=== PATIENT | male | born 1935 | race Caucasian/White ===

== ENCOUNTER 2017-04-03 09:42 | Emergency (ER) | payer OTHER, MEDICARE ==
[~2017-04-03] VITALS: Ht 167.6 cm; Wt 83.5 kg
[~2017-04-03 09:42] MED LIST: LIDOCAINE 2% 20 ML (XYLOCAINE) VIAL ONE
--- OUTSIDE RECORDS SUMMARY | 2017-04-03 09:50 | XMS REPORT | Summary of Care ---
Author Author Elier Nuñez, Dior Oliva Organization Unknown Address [address], [place] [id number] Phone Unavailable Care Team Providers Care Corrections Officer Name Role Phone Bk Garrido M.D. Unavailable Unavailable Tavares Lopes Unavailable Unavailable Elier Nuñez, Dior Oliva Unavailable Unavailable Jay Nuñez, Dior Crawford Unavailable Unavailable Miranda Nuñez, Hever Gallo Unavailable Unavailable Reagan Nuñez, Dereje Peguero Unavailable Unavailable Pj Thapa Unavailable Unavailable Unavailable Functional Status Name Dates Details Functional status health issues are not documented Status: Name Dates Details Cognitive status health issues are not documented Status: Problems Name Dates Details Hip pain, acute, left (719.45, M25.552) Status: Active [place]'s esophagus (530.85, K22.70) Status: Active Benign prostatic hypertrophy (600.00, N40.0) Status: Active Obesity (BMI 30.0-34.9) (278.00, E66.9) Status: Active Laryngopharyngeal reflux (478.79, K21.9) Status: Active Acute non-recurrent maxillary sinusitis (461.0, J01.00) Status: Active Actinic keratosis (702.0, L57.0) Status: Active 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, 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 SOB (shortness of breath) on exertion (786.05, R06.02) Status: Active Leg edema (782.3, R60.0) Status: Active Contusion of left lower extremity, initial encounter (924.5, S80.12XA) Status: Active Atrial arrhythmia (427.9, I49.8) Status: Active Symptomatic bradycardia (427.89, R00.1) Status: Active 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, Z95.0) Status: Active Lung disease, chronic obstructive (496, J44.9) Status: Active Leg cramps (729.82, R25.2) Status: Active UTI symptoms (788.99, R39.9) Status: Active Nasal bleeding (784.7, R04.0) Status: Active Allergic rhinitis (477.9, J30.9) Status: Active Atrial fibrillation (427.31, I48.91) Status: Active Asthma (493.90, J45.909) Status: Active Obstructive sleep apnea (327.23, G47.33) Status: Active Benign essential hypertension (401.1, I10) Status: Active Medications Name Dates Details Multiple Vitamins Oral Tablet Active Fish Oil 1000 MG Oral Capsule * Refills: 0 Active Fiber CAPS * Refills: 0 Active Pantoprazole Sodium 40 MG Oral Tablet Delayed Release TAKE 1 TABLET BY MOUTH 30 MINUTES BEFORE BREAKFAST EVERY DAY * Quantity: 30 Refills: 11 Ty Thompson M.D. Start 28-Apr-2010 Active ClonazePAM 0.5 MG Oral Tablet TAKE 1-3 TABLETS BY MOUTH 1 HOUR BEFORE BEDTIME FOR RESTLESSNESS NEEDED * Quantity: 60 Refills: 5 Ty Garrido M.D. Start 15-Feb-2015 Active Xarelto 20 MG Oral Tablet Take 1 tablet daily * Refills: 0 Sudhir Kirk M.D. * Start 15-Sep-2015 Active SUMAtriptan Succinate 100 MG Oral Tablet TAKE 1 TABLET FOR MIGRAINE RELIEF. OCTOBER REPEAT 2 HOURS LATER. MAXIMUM 200MG/DAY. * Refills: 0 Pj Thapa M.D. Start 04-Nov-2015 Active Promethazine HCl - 25 MG Oral Tablet Take one tablet every 4 hours as needed for nausea and vomiting. * Refills: 0 Pj Thapa M.D. Start 04-Nov-2015 Active Acetaminophen 500 MG Oral Tablet * Refills: 0 Ty Garrido M.D. Start 15-Feb-2016 Active ZyrTEC Allergy 10 MG Oral Capsule Take one tablet daily * Refills: 0 Sabino Jean M.D. Start 27-Mar-2016 Active LevoFLOXacin 750 MG Oral Tablet TAKE 1 TABLET DAILY. * Quantity: 10 Refills: 0 Pj Thapa M.D. Start 29-May-2016 Active Losartan Potassium 25 MG Oral Tablet TAKE 1 TABLET DAILY. * Quantity: 30 Refills: 11 Pj Thapa M.D. Start 08-Feb-2016 Active Symbicort 160-4.5 MCG/ACT Inhalation Aerosol INHALE 2 PUFFS BY MOUTH TWICE DAILY * Quantity: 10.2 Refills: 3 Elier Nuñez Pj Rader * Start 18-May-2016 Active Tamsulosin HCl - 0.4 MG Oral Capsule TAKE 1 CAPSULE BY MOUTH AT BEDTIME * Quantity: 90 Refills: 3 Ty Lopes * Start Active Allergies and Adverse Reactions Name Dates Details Codeine Derivatives (Allergy) Status: Active Penicillins (Allergy) Status: Active Past Medical History Name Dates Details History of cholelithiasis (V12.79, Z87.19) Status: Resolved History of fracture of facial bone (V15.51, Z87.81) Status: Resolved History of herpes zoster (V12.09, Z86.19) Status: Resolved History of Left breast lump (611.72, N63) Status: Resolved History of Left ureteral stone (592.1, N20.1) Status: Resolved History of Olecranon bursitis (726.33, M70.20) Status: Resolved History of renal calculi (V13.01, Z87.442) Status: Resolved History of Renal colic on left side (788.0, N23) Status: Resolved History of small bowel obstruction (V12.79, Z87.19) Status: Resolved History of Ventral hernia (553.20, K43.9) Status: Resolved Procedures Procedure Dates Details History of Extracaps Cataract Extract With Prosthesis Insert Left Eye History of Extracaps Cataract Extract With Prosthesis Insert Right Eye History of Discission Of Secondary Membranous Cataract By Laser Completed: 15-Apr-2009 History of Discission Of Secondary Membranous Cataract By Laser Completed: 22-Apr-2009 History of Tonsillectomy History of Total Knee Arthroplasty Completed: History of Total Knee Arthroplasty Completed: 31-Jan-2010 History of Cystoscopy With Ureteral Catheterization Completed: 11-Aug-2011 History of Upr GI Endosc W/ Insert Guide Wire Fol By Dilat Esoph Over Completed: 25-Mar-2012 History of Colonoscopy For Forceps Biopsy Completed: 16-Apr-2012 History of Duodenoscopy With Biopsy Completed: 07-Apr-2013 History of Laparoscopic Cholecystectomy With Cholangiography Completed: December-2013 History of Appendectomy As Part Of Other Major Procedure History of Ventral Hernia Repair History of Ventral Hernia Repair With Implantation Of Mesh Completed: Apr-2014 History of Prostate Surgery History of Back Surgery History of Gastroscopy With Biopsy Completed: 25-Mar-2012 History of Cataract Surgery History of Tonsillectomy With Adenoidectomy History of Sinus Surgery History of Appendectomy History of Gallbladder Surgery History of Umbilical Hernia Repair History of Reported Hx Of Knee Replacement - Bilateral History of Surgery Vas Deferens Vasectomy History of Complete Colonoscopy Urinalysis, Reflex to Microscopic or Culture PRN [id number] Ordered: 11-Aug-2016 CT SINUSES Ordered: 11-Aug-2016 Immunization Name Dates Details Fluzone High-Dose SUSP Lot #: [id number] on: 09-Apr-2014 Prevnar 13 Intramuscular Suspension Lot #: [id number] on: 11-May-2016 Fluzone High-Dose 0.5 ML Intramuscular Suspension Prefilled Syringe Lot #: [id number] on: 11-May-2016 Family History Name Dates Details Family history of leukemia (V16.6, Z80.6) Status: Active Name Dates Details Family history of Pacemaker Placement Status: Active Family history of dementia (V17.2, Z81.8) Status: Active Family history of cardiac pacemaker (V17.49, Z84.89) Status: Active Family history of congestive heart failure (V17.49, Z82.49) Status: Active Name Dates Details Family history of cerebrovascular accident (CVA) (V17.1, Z82.3) Status: Active Family history of dementia (V17.2, Z81.8) Status: Active Family history of cardiac pacemaker (V17.49, Z84.89) Status: Active Family history of congestive heart failure (V17.49, Z82.49) Status: Active Name Dates Details Family history of malignant neoplasm of urinary bladder (V16.52, Z80.52) Status: Active Name Dates Details Family history of CABG (V17.49, Z84.89) Status: Active Family history of myocardial infarction (V17.3, Z82.49) Status: Active Family history of Aneurysm (442.9, I72.9) Status: Active Family history of congestive heart failure (V17.49, Z82.49) Status: Active Social History Name Dates Details - Status: Name Dates Details Never smoker Vital Signs Date Test Result Details 11-Aug-2016 09:51 BP Systolic 120 mm[Hg] Status: Comments: Location: ; Position: BP Diastolic 70 mm[Hg] Status: Comments: Location: ; Position: Heart Rate 84 /min Status: Comments: Location: ; Weight 186 lb Status: Physical Findings 93 Status: Comments: O2 Saturation Body Mass Index Calculated 30.02 kg/m2 Status: Body Surface Area Calculated 1.94 m2 Status: Results Date Description Value Details 09-Aug-2016 09:37 CBC w/ Auto Diff 7150 Comments: Fastin hours WBC 5.8 K/uL Range: 4.5-11.0 RBC 4.76 mil/uL Range: 4.20-5.40 HGB 16.2 g/dL Range: 14.0-18.0 HCT 47.7 % Range: 42.0-53.0 MCV 100.3 fL (Above high threshold) Range: 80.0-99.0 MCH 34.0 pg (Above high threshold) Range: 27.3-32.5 MCHC 33.9 % Range: 32.0-36.0 RDW 14.9 % (Above high threshold) Range: 11.6-14.8 PLATELETS 207 K/uL Range: 150-400 MPV 6.9 fL Range: 6.0-11.0 %NEUTRO 47.9 % Range: 37.0-80.0 %LYMPHS 36.7 % Range: 13.0-50.0 %MONO 7.6 % Range: 0.0-12.0 %EOS 3.9 % Range: 0.0-7.0 %BASO 0.9 % Range: 0.0-2.5 %JAZMINE 3.0 % Range: 0.0-5.0 NEUTRO 2.8 K/uL Range: 2.0-6.9 LYMPHS 2.1 K/uL Range: 0.6-3.4 MONOS 0.4 K/uL Range: 0.0-0.9 EOS 0.2 K/uL Range: 0.0-0.7 BASO 0.1 K/uL Range: 0.0-0.2 10:08 Comprehensive Metabolic Panel 1212 Comments: Fastin hours SODIUM 138 mmol/L Range: 133-144 POTASSIUM 4.1 mmol/L Range: 3.5-5.1 CHLORIDE 102 mmol/L Range: 98-110 CARBON DIOXIDE 29.8 mmol/L Range: 23.0-33.0 ANION GAP 6 mmol/L Range: 6-16 BUN 13 mg/dL Range: 7-18 CREATININE, SERUM 1.17 mg/dL Range: 0.70-1.30 BUN:CREATININE RATIO 11 EST GFR, >60 ml/min Range: >60 EST GFR, NON-AFR QATARI 60 ml/min (Below low threshold) Range: >60 Comments: EST GFR is reported in ml/min per 1.73 m2 of body surface area. ----- GLUCOSE 93 mg/dL Range: 70-100 ALK PHOSPHATASE 71 U/L Range: 46-116 TOTAL BILIRUBIN 1.60 mg/dL (Above high threshold) Range: 0.20-1.00 AST 26 U/L Range: 8-35 ALT 32 U/L Range: 16-63 ALBUMIN 3.7 g/dL Range: 3.4-5.0 TOTAL PROTEIN 7.2 g/dL Range: 6.4-8.2 A/G RATIO 1.1 units Range: 1.0-1.8 CALCIUM 8.7 mg/dL Range: 8.5-10.1 10:08 LIPID PROFILE 1184 Comments: Fastin hours CHOLESTEROL 161 mg/dL Range: <200 TRIGLYCERIDES 146 mg/dL Range: 30-200 HDL Cholesterol 44 mg/dL Range: >39 NON HDL CHOLESTEROL 117 CARDIAC RSK FACTOR 3.7 units (Below low threshold) Range: 4.4-5.0 LDL - CALCULATED 88 mg/dL Range: 0-130 10:15 THYROID STIM. HORMONE 3602 Comments: Fastin hours THYROID STIM. HORMONE 2.437 uIU/mL Range: 0.550-4.780 Comments: No established reference ranges for infants and children <2 years of age----- Plan of Care Name Dates Details Planned Observations Planned Goals not documented Planned Encounters Appointment; Provider: Pj Thapa M.D. On 09-Nov-2016 14:15 Appointment; Provider: Ty Lopes M.D.,FACS, On 04-Oct-2016 10:45 Appointment; Provider: Everton Cummins M.D. On 25-Sep-2016 10:15 Appointment; Provider: Ty Thompson M.D. On 12-Sep-2016 08:45 Appointment; Provider: David Sultana M.D. On 15-Aug-2016 15:15 Appointment; Provider: Schedule Radiology On 14-Aug-2016 13:30 Interventions Provided Labs/Procedures/Imaging* CT SINUSES; To be Done: 11 Aug 2016 * Urinalysis, Reflex to Microscopic or Culture PRN [id number]; To be Done: 11 Aug 2016 Instructions Name Dates Details Instructions not documented Encounters Appointment; Pj Thapa M.D. Encounter Diagnosis: Problem not documented On 29-May-2016 10:15 Appointment; Pj Thapa M.D. Encounter Diagnosis: Problem not documented On 11-May-2016 09:45 Appointment; Everton Cummins M.D. Encounter Diagnosis: Problem not documented On 27-Mar-2016 11:00 Appointment; Pj Thapa M.D. Encounter Diagnosis: Problem not documented On 16-Mar-2016 14:15 Appointment; Ty Garrido M.D. Encounter Diagnosis: Problem not documented On 15-Feb-2016 15:15 Appointment; Pj Thapa M.D. Encounter Diagnosis: Problem not documented On 08-Feb-2016 11:45 Appointment; David Sultana M.D. Encounter Diagnosis: Problem not documented On 08-Feb-2016 06:15 Appointment; David Sultana M.D. Encounter Diagnosis: Problem not documented On 07-Feb-2016 13:00 Appointment; David Sultana M.D. Encounter Diagnosis: Problem not documented On 06:30 Appointment; David Sultana M.D. Encounter Diagnosis: Problem not documented On 08:45 Appointment; Pj Thapa M.D. Encounter Diagnosis: Problem not documented On 18-Nov-2015 15:00 Appointment; Pj Thapa M.D. Encounter Diagnosis: Problem not documented On 04-Nov-2015 14:30 Appointment; Ty Lopes M.D.,[facility], Encounter Diagnosis: Problem not documented On 04-Oct-2015 10:15 Appointment; Onur Whyte D.O. Encounter Diagnosis: Problem not documented On 29-Sep-2015 17:05 Appointment; Everton Cummins M.D. Encounter Diagnosis: Problem not documented On 20-Sep-2015 12:00 Appointment; Sudhir Kirk M.D. Encounter Diagnosis: Problem not documented On 15-Sep-2015 10:30 Appointment; Sudhir Kirk M.D. Encounter Diagnosis: Problem not documented On 08-Sep-2015 13:45 Appointment; David Sultana M.D. Encounter Diagnosis: Problem not documented On 31-May-2015 05:45 Appointment; David Sultana M.D. Encounter Diagnosis: Problem not documented On 26-May-2015 10:15 Appointment; Sudhir Kirk M.D. Encounter Diagnosis: Problem not documented On 26-Mar-2015 09:00 Appointment; Ty Garrido M.D. Encounter Diagnosis: Problem not documented On 15-Feb-2015 11:45 Appointment; Dinorah Merritt P.A. Encounter Diagnosis: Problem not documented On 08:15 Appointment; Ty Thompson M.D. Encounter Diagnosis: Problem not documented On 15:00 Appointment; Sudhir Kirk M.D. Encounter Diagnosis: Problem not documented On 10:00 Appointment; Sudhir Kirk M.D. Encounter Diagnosis: Problem not documented On 15:45 Appointment; David Sultana M.D. Encounter Diagnosis: Problem not documented On 24-Nov-2014 10:00 Appointment; David Sultana M.D. Encounter Diagnosis: Problem not documented On 26-Oct-2014 16:30 Appointment; David Sultana M.D. Encounter Diagnosis: Problem not documented On 12-Oct-2014 09:30 Appointment; David Sultana M.D. Encounter Diagnosis: Problem not documented On 05-Oct-2014 10:00 Appointment; Ty Lopes M.D.,[facility], Encounter Diagnosis: Problem not documented On 28-Sep-2014 10:45 Appointment; David Sultana M.D. Encounter Diagnosis: Problem not documented On 28-Sep-2014 10:15 Appointment; David Sultana M.D. Encounter Diagnosis: Problem not documented On 25-Sep-2014 09:30 Appointment; David Sultana M.D. Encounter Diagnosis: Problem not documented On 23-Sep-2014 13:30 Appointment; David Sultana M.D. Encounter Diagnosis: Problem not documented On 31-Aug-2014 13:00 Appointment; David Sultana M.D. Encounter Diagnosis: Problem not documented On 24-Aug-2014 10:15
--- OUTSIDE RECORDS SUMMARY | 2017-04-03 09:50 | XMS REPORT | Summary of Care ---
Author Author Irasema Parker APRN Organization Unknown Address [address] [facility] [place], [place] [id number] Phone Unavailable Care Team Providers Care Typesetting Machine Tender Name Role Phone Bk Garrido M.D. Unavailable Unavailable Elire Nuñez, Dior Oliva Unavailable Unavailable Tre Bull M.D. Unavailable Unavailable Irasema Parker APRN Unavailable Unavailable Jay Nuñez, Dior Crawford Unavailable Unavailable Miranda Nuñez, Hever Gallo Unavailable Unavailable Pj Thapa Unavailable Unavailable Unavailable Unavailable Functional Status Name Dates Details Functional status health issues are not documented Status: Name Dates Details Cognitive status health issues are not documented Status: Problems Name Dates Details Hip pain, acute, left (719.45, M25.552) Status: Active Washington's esophagus (530.85, K22.70) Status: Active Benign prostatic hypertrophy (600.00, N40.0) Status: Active Acute non-recurrent maxillary sinusitis (461.0, J01.00) Status: Active 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, 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 SOB (shortness of breath) on exertion (786.05, R06.02) Status: Active Leg edema (782.3, R60.0) Status: Active Contusion of left lower extremity, initial encounter (924.5, S80.12XA) Status: Active Atrial arrhythmia (427.9, I49.8) Status: Active Symptomatic bradycardia (427.89, R00.1) Status: Active Lung disease, chronic obstructive (496, J44.9) Status: Active Leg cramps (729.82, R25.2) Status: Active UTI symptoms (788.99, R39.9) Status: Active Nasal bleeding (784.7, R04.0) Status: Active Allergic rhinitis (477.9, J30.9) Status: Active Asthma (493.90, J45.909) Status: Active Obstructive sleep apnea (327.23, G47.33) Status: Active Actinic keratosis (702.0, L57.0) Status: Active Seborrheic keratosis (702.19, L82.1) Status: Active Laryngopharyngeal reflux (478.79, K21.9) Status: Active Chronic laryngitis (476.0, J37.0) Status: Active Chronic ethmoidal sinusitis (473.2, J32.2) Status: Active BPH with obstruction/lower urinary tract symptoms (600.01, N40.1) Status: Active Chronic maxillary sinusitis (473.0, J32.0) Status: Active Chronic frontal sinusitis (473.1, J32.1) Status: Active Increased prostate specific antigen (PSA) velocity (790.93, R97.20) Status: Active Lower back pain (724.2, M54.5) Status: Active Difficulty breathing (786.09, R06.89) Status: Active Atrial fibrillation (427.31, I48.91) Status: Active Benign essential hypertension (401.1, I10) Status: Active Obesity (BMI 30.0-34.9) (278.00, E66.9) Status: Active 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, Z95.0) Status: Active Acute right flank pain (789.09, R10.9) Status: Active Right low back pain (724.2, M54.5) Status: Active Multilevel degenerative disc disease (722.6, M53.9) Status: Active Scoliosis (737.30, M41.9) Status: Active Medications Name Dates Details Multiple Vitamins Oral Tablet Active Fish Oil 1000 MG Oral Capsule * Refills: 0 Active Fiber CAPS * Refills: 0 Active Pantoprazole Sodium 40 MG Oral Tablet Delayed Release TAKE 1 TABLET BY MOUTH 30 MINUTES BEFORE BREAKFAST EVERY DAY * Quantity: 30 Refills: 11 Ty Thompson M.D. Start 28-Apr-2010 Active Tamsulosin HCl - 0.4 MG Oral Capsule TAKE 1 CAPSULE BY MOUTH AT BEDTIME * Quantity: 90 Refills: 3 Tre Bull M.D. Start Active ClonazePAM 0.5 MG Oral Tablet TAKE 1-3 TABLETS BY MOUTH 1 HOUR BEFORE BEDTIME FOR RESTLESSNESS NEEDED * Quantity: 60 Refills: 5 Ty Garrido M.D. Start 15-Feb-2015 Active Xarelto 20 MG Oral Tablet TAKE 1 TABLET BY MOUTH EVERY DAY - PLEASE START ON 09/15/15 * Quantity: 30 Refills: 0 Elier Nuñez, Pj Rader * Start 13-Sep-2016 Active SUMAtriptan Succinate 100 MG Oral Tablet TAKE 1 TABLET FOR MIGRAINE RELIEF. OCTOBER REPEAT 2 HOURS LATER. MAXIMUM 200MG/DAY. * Refills: 0 Elier Nuñez, Pj Rader * Start 04-Nov-2015 Active Promethazine HCl - 25 MG Oral Tablet Take one tablet every 4 hours as needed for nausea and vomiting. * Refills: 0 Elier Nuñez, Pj Rader * Start 04-Nov-2015 Active Symbicort 160-4.5 MCG/ACT Inhalation Aerosol INHALE 2 PUFFS BY MOUTH TWICE DAILY * Quantity: 10.2 Refills: 3 Elier Nuñez, Pj Rader * Start 18-May-2016 Active Losartan Potassium 25 MG Oral Tablet TAKE 1 TABLET DAILY. * Quantity: 30 Refills: 11 Pj Thapa M.D. * Start 08-Feb-2016 Active Acetaminophen 500 MG Oral Tablet 650 MG 2 TABS AT HS * Refills: 0 Ty Garrido M.D. * Start 15-Feb-2016 Active ZyrTEC Allergy 10 MG Oral Capsule Take one tablet daily * Refills: 0 Sabino Jean M.D. * Start 27-Mar-2016 Active Omeprazole 40 MG Oral Capsule Delayed Release TAKE 1 CAPSULE Bedtime * Quantity: 30 Refills: 11 Ty Thompson M.D. * Start 17-Aug-2016 Active Sulfamethoxazole-Trimethoprim 800-160 MG Oral Tablet 1 tablet bid x 30 days * Quantity: 60 Refills: 0 Tre Bull M.D. * Start 10-Oct-2016 Active Baclofen 10 MG Oral Tablet TAKE ONE TABLET BY MOUTH THREE TIMES A DAY NEEDED * Quantity: 30 Refills: 0 Irasema Parker APRN * Start 13-Oct-2016 Active Allergies and Adverse Reactions Name Dates [...] of Ventral hernia (553.20, K43.9) Status: Resolved Personal history of skin cancer (V10.83, Z85.828) Status: Resolved Procedures Procedure Dates Details History [...] Endosc W/ Insert Guide Wire Fol By Cem Hughesoph Over Completed: 25-Mar-2012 History of Colonoscopy For Forceps Biopsy Completed: 16-Apr-2012 History of Duodenoscopy With Biopsy Completed: 07-Apr-2013 History of Laparoscopic Cholecystectomy With Cholangiography Completed: December-2013 History of Appendectomy As Part Of Other Major Procedure History of Ventral Hernia Repair History of Ventral Hernia Repair With Implantation Of Mesh Completed: Apr-2014 History of Cataract Surgery History of Tonsillectomy With Adenoidectomy History of Sinus Surgery History of Appendectomy History of Gallbladder Surgery History of Umbilical Hernia Repair History of Reported Hx Of Knee Replacement - Bilateral History of Prostate Surgery History of Back Surgery History of Gastroscopy With Biopsy Completed: 25-Mar-2012 History of Surgery Vas Deferens Vasectomy History of Complete Colonoscopy ENT Precert Ordered: 17-Aug-2016 PSA ( PROSTATE SPECIFIC ANTIGEN) 3100 Ordered: 10-Oct-2016 Urinalysis, Reflex to Microscopic or Culture PRN [id number] Ordered: 12-Oct-2016 Immunization Name Dates Details Fluzone High-Dose SUSP Lot #: [id number] on: 09-Apr-2014 Prevnar 13 Intramuscular Suspension Lot #: [id number] on: 11-May-2016 Fluzone High-Dose 0.5 ML Intramuscular Suspension Prefilled Syringe Lot #: [id number] on: 11-May-2016 Family History Name Dates Details [...] Dates Details - Status: Name Dates Details Former smoker Vital Signs Date Test Result Details 13-Oct-2016 13:59 BP Systolic 110 mm[Hg] Status: Comments: Location: ; Position: BP Diastolic 72 mm[Hg] Status: Comments: Location: ; Position: Heart Rate 86 /min Status: Comments: Location: ; Weight 186.4 lb Status: Physical Findings 95 Status: Comments: O2 Saturation Body Mass Index Calculated 30.09 kg/m2 Status: Body Surface Area Calculated 1.94 m2 Status: 12-Oct-2016 11:16 BP Systolic 124 mm[Hg] Status: Comments: Location: LUE; Position: Sitting BP Diastolic 76 mm[Hg] Status: Comments: Location: LUE; Position: Sitting Heart Rate 76 /min Status: Comments: Location: ; Height 66 in Status: Weight 185 lb Status: Body Mass Index Calculated 29.86 kg/m2 Status: Body Surface Area Calculated 1.93 m2 Status: 12-Oct-2016 08:55 BP Systolic 142 mm[Hg] Status: Comments: Location: ; Position: BP Diastolic 68 mm[Hg] Status: Comments: Location: ; Position: Heart Rate 71 /min Status: Comments: Location: ; Height 66 in Status: Weight 181 lb Status: Physical Findings 97 Status: Comments: O2 Saturation Body Mass Index Calculated 29.21 kg/m2 Status: Body Surface Area Calculated 1.92 m2 Status: 09-Oct-2016 11:21 BP Systolic 126 mm[Hg] Status: Comments: Location: ; Position: BP Diastolic 80 mm[Hg] Status: Comments: Location: ; Position: Heart Rate 79 /min Status: Comments: Location: ; Height 66 in Status: Weight 180 lb Status: Body Mass Index Calculated 29.05 kg/m2 Status: Body Surface Area Calculated 1.91 m2 Status: Results Date Description Value Details 09-Oct-2016 10:00 PSA ( PROSTATE SPECIFIC ANTIGEN) 3100 PROSTATE SPECIFIC ANTIGEN 1.530 ng/mL Range: 0.000-4.000 12-Oct-2016 09:11 Urinalysis, Reflex to Microscopic or Culture PRN 8005 pH 6.5 Range: 5.0-7.5 SP GRAVITY 1.015 Range: 1.010-1.030 APPEARANCE CLEAR Range: Clear COLOR YELLOW Range: Straw-Yellow PROTEIN NEGATIVE mg/dL Range: Negative-Trace GLUCOSE NEGATIVE mg/dL Range: Negative KETONE NEGATIVE mg/dL Range: Negative BILIRUB NEGATIVE Range: Negative BLOOD NEGATIVE Range: Negative UROBIL 0.2 EU/dL Range: 0.2-1.0 NITRITE NEGATIVE Range: Negative LEUK NEGATIVE Range: Negative 10:14 XRay CHEST-PA & LAT Comments: Exam Date: 10/12/2016 09:53Dictation Date: 10/12/2016 10:14 X CHEST PA & LAT 10:20 CBC w/ Auto Diff 7150 Comments: Items were attached to this order: Extra Tube, IRASEMA, CROSS TIE TURNER Charge WBC 5.0 K/uL Range: 4.5-11.0 RBC 4.77 mil/uL Range: 4.20-5.40 HGB 15.6 g/dL Range: 14.0-18.0 HCT 46.9 % Range: 42.0-53.0 MCV 98.3 fL Range: 80.0-99.0 MCH 32.8 pg (Above high threshold) Range: 27.3-32.5 MCHC 33.4 % Range: 32.0-36.0 RDW 13.9 % Range: 11.6-14.8 PLATELETS 186 K/uL Range: 150-400 MPV 5.8 fL (Below low threshold) Range: 6.0-11.0 %NEUTRO 70.1 % Range: 37.0-80.0 %LYMPHS 18.4 % Range: 13.0-50.0 %MONO 6.5 % Range: 0.0-12.0 %EOS 2.8 % Range: 0.0-7.0 %BASO 0.5 % Range: 0.0-2.5 %JAZMINE 1.7 % Range: 0.0-5.0 NEUTRO 3.5 K/uL Range: 2.0-6.9 LYMPHS 0.9 K/uL Range: 0.6-3.4 MONOS 0.3 K/uL Range: 0.0-0.9 EOS 0.1 K/uL Range: 0.0-0.7 BASO 0.0 K/uL Range: 0.0-0.2 10:27 Comprehensive Metabolic Panel 1212 Comments: Items were attached to this order: Extra Tube, IRASEMA, CROSS TIE TURNER Charge SODIUM 136 mmol/L Range: 133-144 POTASSIUM 4.1 mmol/L Range: 3.5-5.1 CHLORIDE 102 mmol/L Range: 98-110 CARBON DIOXIDE 30.5 mmol/L Range: 23.0-33.0 ANION GAP 4 mmol/L (Below low threshold) Range: 6-16 BUN 15 mg/dL Range: 7-18 CREATININE, SERUM 1.15 mg/dL Range: 0.70-1.30 BUN:CREATININE RATIO 13 EST GFR, >60 ml/min Range: >60 EST GFR, NON-AFR LAO >60 ml/min Range: >60 Comments: EST GFR is reported in ml/min per 1.73 m2 of body surface area. ----- GLUCOSE 92 mg/dL Range: 70-100 ALK PHOSPHATASE 60 U/L Range: 46-116 TOTAL BILIRUBIN 1.10 mg/dL (Above high threshold) Range: 0.20-1.00 AST 26 U/L Range: 8-35 ALT 31 U/L Range: 16-63 ALBUMIN 3.7 g/dL Range: 3.4-5.0 TOTAL PROTEIN 7.1 g/dL Range: 6.4-8.2 A/G RATIO 1.1 units Range: 1.0-1.8 CALCIUM 8.5 mg/dL Range: 8.5-10.1 10:27 Lipase 1275 Comments: Items were attached to this order: Extra Tube, IRASEMA, CROSS TIE TURNER Charge LIPASE 129 U/L Range: 73-393 10:27 AMYLASE 1250 Comments: Items were attached to this order: Extra Tube, IRASEMA, CROSS TIE TURNER Charge AMYLASE 52 U/L Range: 25-115 13-Oct-2016 15:21 XRay HIP-Right Comments: Exam Date: 10/13/2016 14: 25Dictation Date: 10/13/2016 15:21 X HIP COMP (MIN 2V) RT 15:22 XRay SPINE-LUMBAR Comments: Exam Date: 10/13/2016 14:24Dictation Date : 10/13/2016 15:22 X SPINE LUMBAR W/ FLEX & EXT 15:36 Urinalysis, Reflex to Microscopic or Culture PRN 8005 pH 6.5 Range: 5.0-7.5 SP GRAVITY 1.010 Range: 1.010-1.030 APPEARANCE CLEAR Range: Clear COLOR YELLOW Range: Straw-Yellow PROTEIN NEGATIVE mg/dL Range: Negative-Trace GLUCOSE NEGATIVE mg/dL Range: Negative KETONE NEGATIVE mg/dL Range: Negative BILIRUB NEGATIVE Range: Negative BLOOD NEGATIVE Range: Negative UROBIL 0.2 EU/dL Range: 0.2-1.0 NITRITE NEGATIVE Range: Negative LEUK NEGATIVE Range: Negative 16:31 CT AB/ PEL WITHOUT IV CONTRAST (FOR KIDNEY STONE) Comments: Exam Date : 10/13/2016 15:14Dictation Date: 10/13/2016 16:31 XC ABD PEL W/O (RENAL STONE) Plan of Care Name Dates Details Planned Observations Planned Goals not documented Planned Encounters Appointment; Provider: Everton Cummins M.D. On 16-Apr-2017 10:30 Appointment; Provider: David Sultana M.D. On 13-Feb-2017 15:15 Appointment; Provider: Pj Thapa M.D. On 09-Nov-2016 14:15 Appointment; Provider: Ty Thompson M.D. On 07-Nov-2016 08:30 Appointment; Provider: Tre Bull M.D. On 26-Oct-2016 09:15 Interventions Provided Labs/Procedures/Imaging* Urinalysis, Reflex to Microscopic or Culture PRN 8005; Done: [id number] 03:28PM * XRay HIP-Right; Done: [id number] 03:21PM * XRay SPINE-LUMBAR; Done: [id number] 03:22PM Instructions Name Dates Details Instructions not documented Encounters Appointment; Irasema Parker A.P.R.N. Encounter Diagnosis: Problem not documented On 13-Oct-2016 13:30 Appointment; Everton Cummins M.D. Encounter Diagnosis: Problem not documented On 12-Oct-2016 11:00 Appointment; Ventura Talavera M.D. Encounter Diagnosis: Problem not documented On 12-Oct-2016 08:39 Appointment; Ty Thompson M.D. Encounter Diagnosis: Problem not documented On 10-Oct-2016 08:00 Appointment; Tre Bull M.D. Encounter Diagnosis: Problem not documented On 09-Oct-2016 11:00 Appointment; Ty Thompson M.D. Encounter Diagnosis: Problem not documented On 13-Sep-2016 10:00 Appointment; Ty Thompson M.D. Encounter Diagnosis: Problem not documented On 17-Aug-2016 08:00 Appointment; David Sultana M.D. Encounter Diagnosis: Problem not documented On 15-Aug-2016 15:15 Appointment; Pj Thapa M.D. Encounter Diagnosis: Problem not documented On 11-Aug-2016 09:45 Appointment; Pj Thapa M.D. Encounter Diagnosis: Problem [...] documented On 04-Nov-2015 14:30 Appointment; Ty Lopes M.D.,[facility], Encounter Diagnosis: Problem not documented On 04-Oct-2015 [...]
--- OUTSIDE RECORDS SUMMARY | 2017-04-03 09:51 | XMS REPORT | Summary of Care ---
Author Author Maria G Nuñez, Everton Dixon Unknown Address [address] [place] [address] Phone Unavailable Care Team Providers Care Silk Opener Name Role Phone Hema Nuñez, Bk Crawford Unavailable Unavailable Marianne Nuñez, FACS, ,, M Ty Unavailable Unavailable Darren Nuñez, Son Unavailable Unavailable Jya Nuñez, Dior Crawford Unavailable Unavailable Reagan Nuñez, Dereje Peguero Unavailable Unavailable Verify PCP PP Unavailable Unavailable Unavailable Functional Status Functional Status Health Issues* Name Dates Details Functional status health issues are not documented Status: Cognitive Status Health Issues* Name Dates Details Cognitive status health issues are not documented Status: Problems Name Dates Details Washington's esophagus (530.85, K22.70) Status: Active Laryngopharyngeal reflux (478.79, J38.7) Status: Active 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, 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 Benign prostatic hypertrophy (600.00, N40.0) Status: Active Obstructive sleep apnea (327.23, G47.33) Status: Active Actinic keratosis (702.0, L57.0) Status: Active Seborrheic keratosis (702.19, L82.1) Status: Active Basal cell carcinoma 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, C44.310) Status: Active Symptomatic bradycardia (427.89, R00.1) Status: Active 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, Z95.0) Status: Active Atrial fibrillation (427.31, I48.91) Status: Active Obesity (BMI 30.0-34.9) (278.00, E66.9) Status: Active Benign essential hypertension (401.1, I10) Status: Active Medications Name Dates Details Multiple Vitamins Oral Tablet ActiveCalcium 600 + D 600-200 MG-UNIT Oral Tablet * Refills: 0 ActiveFish Oil 1000 MG Oral Capsule * Refills: 0 ActiveFiber CAPS * Refills: 0 ActivePantoprazole Sodium 40 MG Oral Tablet Delayed Release TAKE 1 TABLET BY MOUTH 30 MINUTES BEFORE BREAKFAST EVERY DAY * Quantity: 30 Refills: 11 Ty Thompson M.D.* Started 28-Apr-2010 ActiveDiphenhydrAMINE HCl - 25 MG Oral Capsule 1 capsule at bedtime to help with sleep and allergies. May take an additional capsule if needed. * Quantity: 30 Refills: 0 Anthony Banks M.D.* Started 23-May-2010 ActiveTamsulosin HCl - 0.4 MG Oral Capsule TAKE 1 CAPSULE BY MOUTH AT BEDTIME * Quantity: 90 Refills: 3 Ty Lopes M.D., [facility], , * Started ActiveVitamin E 400 UNIT Oral Tablet Take one tablet daily * Refills: 0 Ty Garrido M.D.* Started 15-Feb-2015 ActiveClonazePAM 0.5 MG Oral Tablet TAKE 1-3 TABLETS BY MOUTH 1 HOUR BEFORE BEDTIME FOR RESTLESSNESS NEEDED * Quantity: 60 Refills: 5 Ty Garrido M.D.* Started 15-Feb-2015 ActiveLisinopril 5 MG Oral Tablet TAKE 1 TABLET DAILY. 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: Resolved History of Basal cell carcinoma of skin 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, C44.310) Status: Resolved History of cholelithiasis (V12.79, Z87.19) Status: Resolved History of cholelithiasis (V12.79, Z87.19) Status: Resolved [...] obstruction (V12.79, Z87.19) Status: Resolved 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, 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 History of Status post hernia repair (V45.89, Z98.89) Status: Resolved History of Urinary retention (788.20, R33.9) Status: Resolved History of Ventral hernia (553.20, K43.9) Status: Resolved Procedures Procedure Dates Details History of Extracaps Cataract Extract With Prosthesis Insert Left Eye History of Extracaps Cataract Extract With Prosthesis Insert Right Eye History of Discission Of Secondary Membranous Cataract By Laser Completed: 15-Apr-2009 History of Discission Of Secondary Membranous Cataract By Laser Completed: 22-Apr-2009 History of Back Surgery History of Prostate Surgery History of Tonsillectomy History of Total Knee Arthroplasty Completed: History of Total Knee Arthroplasty Completed:31-Jan-2010 History of Cystoscopy With Ureteral Catheterization Completed:11-Aug-2011 History of Gastroscopy With Biopsy Completed:25-Mar-2012 History of Upr GI Endosc W/ Insert Guide Wire Fol By Dilat Esoph Over Completed:25-Mar-2012 History of Colonoscopy For Forceps Biopsy Completed:16-Apr-2012 History of Duodenoscopy With Biopsy Completed:07-Apr-2013 History of Laparoscopic Cholecystectomy With Cholangiography Completed:December-2013 History of Appendectomy As Part Of Other Major Procedure History of Ventral Hernia Repair History of Ventral Hernia Repair With Implantation Of Mesh Completed: Procedures not documented Immunization Name Dates Details Fluzone High-Dose Intramuscular Suspension Lot #: [id number] Administered on:09-Apr-2014 Family History aunt* Name Dates Details Family history of leukemia (V16.6, Z80.6) Status: Active Mother* Name Dates Details Family history of Pacemaker Placement Status: Active Father* Name Dates Details Family history of cerebrovascular accident (CVA) (V17.1, Z82.3) Status: Active Sister* Name Dates Details Family history of malignant neoplasm of urinary bladder (V16.52, Z80.52) Status: Active Brother* Name Dates Details Family history of CABG (V17.49, Z84.89) Status: Active Family history of myocardial infarction (V17.3, Z82.49) Status: Active Family history of Aneurysm (442.9, I72.9) Status: Active Social History Name Dates Details Smoking Status* Never smoker Vital Signs Date Test Result Details 20-Sep-2015 12:54 BP Systolic 122 mm[Hg] Status: BP Diastolic 68 mm[Hg] Status: Heart Rate 68 /min Status: Height 66 in Status: Weight 187 lb Status: Body Mass Index Calculated 30.18 kg/m2 Status: Body Surface Area Calculated 1.94 m2 Status: 15-Sep-2015 10:33 BP Systolic 164 mm[Hg] Status: BP Diastolic 98 mm[Hg] Status: Heart Rate 64 /min Status: Respiration Rate 16 /min Status: Weight 188 lb Status: Body Mass Index Calculated 30.34 kg/m2 Status: Body Surface Area Calculated 1.95 m2 Status: 08-Sep-2015 13:43 BP Systolic 130 mm[Hg] Status: BP Diastolic 74 mm[Hg] Status: Heart Rate 44 /min Status: Respiration Rate 16 /min Status: Weight 190 lb Status: Body Mass Index Calculated 30.67 kg/m2 Status: Body Surface Area Calculated 1.96 m2 Status: Results Date Description Value Details Results not documented Plan of Care Planned Observations* Name Dates Details Planned Goals not documented Goal Planned Encounters* Appointment; Provider: Ty Garrido On 21-Feb-2016 10:30 * Appointment; Provider: Ty Lopes On 04-Oct-2015 10:15 * Appointment; Provider: Everton Cummins On 12-Sep-2015 10:45 * Appointment; Provider: David Sultana On 23-Sep-2014 13:30 * Appointment; Provider: Christoph Scruggs On 28-Apr-2014 09:30 * Appointment; Provider: Conor Craig On 20-Apr-2014 11:45 * Appointment; Provider: Christoph Scruggs On 14:00 * Appointment; Provider: Sherlyn Huerta On 18-Apr-2012 09:45 * Appointment; Provider: Ty Lopes On 11-Aug-2011 13:00 * Appointment; Provider: Anthony Banks On 16-May-2010 16:30 * Appointment; Provider: Conor Craig On 31-Jan-2010 07:00 * Appointment; Provider: Conor Craig On 07:00 * Appointment; Provider: Lazaro Rodriguez On 22-Apr-2009 12:30 Instructions * Instructions not documented Encounters Appointment; Everton Cummins Encounter Diagnosis: Problem not documented On 20-Sep-2015 12:00 Appointment; Sudhir Kirk Encounter Diagnosis: Problem not documented On 15-Sep-2015 10:30 Appointment; Sudhir Kirk Encounter Diagnosis: Problem not documented On 08-Sep-2015 13:45 Appointment; David Sultana Encounter Diagnosis: Problem not documented On 31-May-2015 05:45 Appointment; David Sultana Encounter Diagnosis: Problem not documented On 26-May-2015 10:15 Appointment; Sudhir Kirk Encounter Diagnosis: Problem not documented On 26-Mar-2015 09:00 Appointment; Ty Garrido Encounter Diagnosis: Problem not documented On 15-Feb-2015 11:45 Appointment; Dinorah Merritt Encounter Diagnosis: Problem not documented On 08:15 Appointment; Ty Thompson Encounter Diagnosis: Problem not documented On 15:00 Appointment; Sudhir Kirk Encounter Diagnosis: Problem not documented On 10:00 Appointment; Sudhir Kirk Encounter Diagnosis: Problem not documented On 15:45 Appointment; David Sultana Encounter Diagnosis: Problem not documented On 24-Nov-2014 10:00 Appointment; David Sultana Encounter Diagnosis: Problem not documented On 26-Oct-2014 16:30 Appointment; David Sultana Encounter Diagnosis: Problem not documented On 12-Oct-2014 09:30 Appointment; David Sultana Encounter Diagnosis: Problem not documented On 05-Oct-2014 10:00 Appointment; Ty Lopes Encounter Diagnosis: Problem not documented On 28-Sep-2014 10:45 Appointment; David Sultana Encounter Diagnosis: Problem not documented On 28-Sep-2014 10:15 Appointment; David Sultana Encounter Diagnosis: Problem not documented On 25-Sep-2014 09:30 Appointment; David Sultana Encounter Diagnosis: Problem not documented On 23-Sep-2014 13:30 Appointment; David Sultana Encounter Diagnosis: Problem not documented On 31-Aug-2014 13:00 Appointment; David Sultana Encounter Diagnosis: Problem not documented On 24-Aug-2014 10:15 Appointment; Sudhir Kirk Encounter Diagnosis: Problem not documented On 22-Jul-2014 13:30 Appointment; Christoph Scruggs Encounter Diagnosis: Problem not documented On 15-Jul-2014 14:00 Appointment; Christoph Scruggs Encounter Diagnosis: Problem not documented On 17-Jun-2014 14:15 Appointment; Christoph Scruggs Encounter Diagnosis: Problem not documented On 25-May-2014 13:45 Appointment; Sherlyn Huerta Encounter Diagnosis: Problem not documented On 15-May-2014 09:30 Appointment; Ty Lopes Encounter Diagnosis: Problem not documented On 13-May-2014 14:45 Appointment; Christoph Scruggs Encounter Diagnosis: Problem not documented On 13-May-2014 14:00 Appointment; Christoph Scruggs Encounter Diagnosis: Problem not documented On 07-May-2014 11:30 Appointment; Conor Craig Encounter Diagnosis: Problem not documented On 05-May-2014 09:45 Appointment; Ty Lopes Encounter Diagnosis: Problem not documented On 04-May-2014 08:30 Appointment; Christoph Scruggs Encounter Diagnosis: Problem not documented On 27-Apr-2014 10:30 Appointment; Sudhir Kirk Encounter Diagnosis: Problem not documented On 16-Apr-2014 10:30 Appointment; Conor Craig Encounter Diagnosis: Problem not documented On 16-Apr-2014 08:45 Appointment; Conor Craig Encounter Diagnosis: Problem not documented On 09-Apr-2014 14:00 Appointment; Melodie Jessica Encounter Diagnosis: Problem not documented On 09-Apr-2014 11:45 Appointment; Christoph Scruggs Encounter Diagnosis: Problem not documented On 09-Apr-2014 11:15 Appointment; Christoph Scruggs Encounter Diagnosis: Problem not documented On 04-Mar-2014 13:45 Appointment; Sherlyn Huerta Encounter Diagnosis: Problem not documented On 24-Feb-2014 08:45 Appointment; Christoph Scruggs Encounter Diagnosis: Problem not documented On 23-Feb-2014 11:15 Appointment; Sudhir Kirk Encounter Diagnosis: Problem not documented On 20-Feb-2014 09:30 Appointment; Sherlyn Huerta Encounter Diagnosis: Problem not documented On 18-Feb-2014 08:45 Appointment; Ty Lopes Encounter Diagnosis: Problem not documented On 13-Feb-2014 09:30 Appointment; Ty Garrido Encounter Diagnosis: Problem not documented On 11-Feb-2014 16:00 Appointment; Christoph Scruggs Encounter Diagnosis: Problem not documented On 30-Jan-2014 13:00 Appointment; Ty Lopes Encounter Diagnosis: Problem not documented On 09:00 Appointment; Christoph Scruggs Encounter Diagnosis: Problem not documented On 11:15 Appointment; Sudhir Kirk Encounter Diagnosis: Problem not documented On 10:45 Appointment; Sherlyn Huerta Encounter Diagnosis: Problem not documented On 15:45
--- OUTSIDE RECORDS SUMMARY | 2017-04-03 09:51 | XMS REPORT | Summary of Care ---
Author Author Reagan Nuñez, Dereje Peguero Organization Unknown Address [address], [place] [id number] Phone Unavailable Care Team Providers Care Test And Balance Engineer Name Role Phone Bk Garrido M.D. Unavailable Unavailable Marianne Nuñez, FACS, ,, M Ty Unavailable Unavailable Darren Nuñez, Son Unavailable Unavailable Dinorah Flowers Unavailable Unavailable Jay Nuñez, Dior Crawford Unavailable Unavailable Sudhir Kirk PP Unavailable Unavailable Unavailable Functional Status Functional Status Health Issues* Name Dates Details Functional status health issues are not documented Status: Cognitive Status Health Issues* Name Dates Details Cognitive status health issues are not documented Status: Problems Name Dates Details Insomnia (780.52, G47.00) Status: Active Nephrolithiasis (592.0, N20.0) Status: Active Biliary calculus (574.20, K80.20) Status: Active Cholelithiasis (574.20, K80.20) Status: Active Left breast lump (611.72, N63) Status: Active Right elbow pain (719.42, M25.521) Status: Active Washington's esophagus (530.85, K22.70) Status: Active Olecranon bursitis (726.33, M70.20) Status: Active Laryngopharyngeal reflux (478.79, J38.7) Status: Active Ventral hernia (553.20, K43.9) Status: Active Bronchitis (490, J40) Status: Active 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, 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 Post op infection (998.59, T81.4XXA) Status: Active Benign prostatic hypertrophy (600.00, N40.0) Status: Active Dressing change (V58.30, Z48.00) Status: Active Fracture of facial bones (802.8, S02.92XA) Status: Active Rib pain on left side (786.50, R07.81) Status: Active Skin infection (686.9, L08.9) Status: Active Fall, accidental (E888.9, W19.XXXA) Status: Active Obstructive sleep apnea (327.23, G47.33) Status: Active Excessive sleepiness (780.54, G47.10) Status: Active Dysuria (788.1, R30.0) Status: Active Abdominal pain (789.00, R10.9) Status: Active Renal colic on left side (788.0, N23) Status: Active Left ureteral stone (592.1, N20.1) Status: Active Actinic keratosis (702.0, L57.0) Status: Active Seborrheic keratosis (702.19, L82.1) Status: Active Basal cell carcinoma 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, C44.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) Status: Active Hernia, abdominal (553.9, K46.9) Status: Active Medications Name Dates Details Multiple Vitamins Oral Tablet ActiveCalcium 600 + D 600-200 MG-UNIT Oral Tablet * Refills: 0 ActiveFish Oil 1000 MG Oral Capsule * Refills: 0 ActiveFiber CAPS * Refills: 0 ActiveTylenol Extra Strength 500 MG Oral Tablet * Refills: 0 * Started 25-Mar-2010 ActivePantoprazole Sodium 40 MG Oral Tablet Delayed Release TAKE 1 TABLET BY MOUTH 30 MINUTES BEFORE BREAKFAST EVERY DAY * Quantity: 30 Refills: 11 Ty Thompson M.D.* Started 28-Apr-2010 ActiveDiphenhydrAMINE HCl - 25 MG Oral Capsule 1 capsule at bedtime to help with sleep and allergies. May take an additional capsule if needed. * Quantity: 30 Refills: 0 Anthony Banks M.D.* Started 23-May-2010 ActiveAspirin Low Dose 81 MG Oral Tablet * Refills: 0 ActiveTamsulosin HCl - 0.4 MG Oral Capsule TAKE 1 CAPSULE BY MOUTH AT BEDTIME * Quantity: 90 Refills: 3 Ty Lopes M.D., FACS, , * Started ActiveMupirocin 2 % External Ointment APPLY SPARINGLY TO AFFECTED AREA(S) TWICE DAILY * Quantity: 15 Refills: 0 Dinorah Merritt P.A.* Started ActiveVitamin E 400 UNIT Oral Tablet Take one tablet daily * Refills: 0 Ty Garrido M.D.* Started 15-Feb-2015 ActiveIbuprofen 200 MG Oral Tablet TAKE 2 TABLET Every 4 hours PRN * Refills: 0 Ty Garrido M.D.* Started 15-Feb-2015 ActiveClonazePAM 0.5 MG Oral Tablet TAKE 1-3 TABLETS BY MOUTH 1 HOUR BEFORE BEDTIME FOR RESTLESSNESS * Quantity: 60 Refills: 5 Ty Garrido M.D.* Started 15-Feb-2015 Active Allergies and Adverse Reactions Name Dates Details Codeine Derivatives Status: Active Penicillins Status: Active Past Medical History Name Dates Details 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, 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: Resolved History of Basal cell carcinoma of skin 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, C44.310) Status: Resolved History of herpes zoster (V12.09, Z86.19) Status: Resolved History of small bowel obstruction (V12.79, Z87.19) Status: Resolved 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, 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 History of Urinary retention (788.20, R33.9) Status: Resolved History of Visit for wound check (V58.89, Z51.89) Status: Resolved Personal history of skin cancer [...] Details Fluzone High-Dose Intramuscular Suspension Lot #: [id number] Administered on:09-Apr-2014 Social History Name Dates Details Smoking Status* Never smoker Vital Signs Date Test Result Details 08-Sep-2015 13:43 BP Systolic 130 mm[Hg] Status: [...] Lopes On 04-Oct-2015 10:15 * Appointment; Provider: David Sultana On 23-Sep-2014 [...] Instructions * Instructions not documented Encounters Appointment; Sudhir Kirk Encounter Diagnosis: Problem not [...] Diagnosis: Problem not documented On 15:45 Appointment; Ty Lopes Encounter Diagnosis: Problem not documented On 15-Sep-2013 10:45
--- OUTSIDE RECORDS SUMMARY | 2017-04-03 09:51 | XMS REPORT | Summary of Care ---
Author Author Elier Nuñez, Dior Oliva Organization Unknown Address [address], [place] [id number] Phone Unavailable Care Team Providers Care Non Ferrous Material Handler Name Role Phone Bk Garrido M.D. Unavailable Unavailable Elier Nuñez, Dior Oliva Unavailable Unavailable Tre Bull [...] pain, acute, left (719.45, M25.552) Status: Active Acute non-recurrent maxillary sinusitis (461.0, J01.00) Status: Active SOB (shortness of breath) on exertion (786.05, R06.02) Status: Active Leg edema (782.3, R60.0) Status: Active Contusion of left lower extremity, initial encounter (924.5, S80.12XA) Status: Active Atrial arrhythmia (427.9, I49.8) Status: Active Leg cramps (729.82, R25.2) Status: Active UTI symptoms (788.99, R39.9) Status: Active Nasal bleeding (784.7, R04.0) Status: Active Acute right flank pain (789.09, R10.9) Status: Active Benign prostatic hypertrophy (600.00, N40.0) Status: Active Actinic keratosis (702.0, L57.0) Status: Active Seborrheic keratosis (702.19, L82.1) Status: Active Washington's esophagus (530.85, K22.70) Status: Active Laryngopharyngeal reflux (478.79, K21.9) Status: Active 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, Z95.0) Status: Active Symptomatic bradycardia (427.89, R00.1) Status: Active Allergic rhinitis (477.9, J30.9) Status: Active Asthma (493.90, J45.909) Status: Active Lung disease, chronic obstructive (496, J44.9) Status: Active 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, 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 Chronic laryngitis (476.0, J37.0) Status: Active Chronic ethmoidal sinusitis (473.2, J32.2) Status: Active BPH with obstruction/lower urinary tract symptoms (600.01, N40.1) Status: Active Increased prostate specific antigen (PSA) velocity (790.93, R97.20) Status: Active Right low back pain (724.2, M54.5) Status: Active Lower back pain (724.2, M54.5) Status: Active Multilevel degenerative disc disease (722.6, M53.9) Status: Active Scoliosis (737.30, M41.9) Status: Active Difficulty breathing (786.09, R06.89) Status: Active Urethral stricture (598.9, N35.9) Status: Active Increased trabeculation of bladder (596.89, N32.89) Status: Active Rising PSA level (790.93, R97.20) Status: Active Chronic maxillary sinusitis (473.0, J32.0) Status: Active Chronic frontal sinusitis (473.1, J32.1) Status: Active Epistaxis (784.7, R04.0) Status: Active Atrial fibrillation (427.31, I48.91) Status: Active Benign essential hypertension (401.1, I10) Status: Active Obstructive sleep apnea (327.23, G47.33) Status: Active Obesity (BMI 30.0-34.9) (278.00, E66.9) Status: Active Medications Name Dates Details Multiple Vitamins Oral Tablet Active Fish Oil 1000 MG Oral Capsule * Refills: 0 Active Fiber CAPS * Refills: 0 Active Tamsulosin HCl - 0.4 MG Oral Capsule TAKE 1 CAPSULE BY MOUTH AT BEDTIME * Quantity: 90 Refills: 3 Cho Tavares.Tre Vaughn * Start Active Symbicort 160-4.5 MCG/ACT Inhalation Aerosol INHALE 2 PUFFS BY MOUTH TWICE DAILY * Quantity: 10.2 Refills: 5 Elier Nuñez, Pj Rader * Start 26-Oct-2016 Active Baclofen 10 MG Oral Tablet TAKE ONE TABLET BY MOUTH THREE TIMES A DAY NEEDED * Quantity: 30 Refills: 0 Keith Irasema WALDRON * Start 13-Oct-2016 Active Clarithromycin ER 500 MG Oral Tablet Extended Release 24 Hour TAKE 2 TABLETS ONCE DAILY UNTIL FINISHED. * Quantity: 28 Refills: 0 Ty Thompson M.D. * Start 07-Nov-2016 End 21-Nov-2016 Active Pantoprazole Sodium 40 MG Oral Tablet Delayed Release TAKE 1 TABLET BY MOUTH 30 MINUTES BEFORE BREAKFAST EVERY DAY * Quantity: 30 Refills: 11 Ty Thompson M.D. * Start 18-Oct-2016 Active Xarelto 20 MG Oral Tablet take 1 tablet by mouth every day * Quantity: 30 Refills: 0 Pj Thapa M.D. * Start 26-Oct-2016 Active Omeprazole 40 MG Oral Capsule Delayed Release TAKE 1 CAPSULE Bedtime * Quantity: 30 Refills: 11 Ty Thompson M.D. * Start 17-Aug-2016 Active Acetaminophen 500 MG Oral Tablet 650 MG 2 TABS AT HS * Refills: 0 Ty Garrido M.D. * Start 15-Feb-2016 Active Losartan Potassium 25 MG Oral Tablet TAKE 1 TABLET DAILY. * Quantity: 30 Refills: 11 Elier Nuñez, Pj Rader * Start 08-Feb-2016 Active ZyrTEC Allergy 10 MG Oral Capsule Take one tablet daily * Refills: 0 Sabino Jean M.D. * Start 27-Mar-2016 Active ClonazePAM 0.5 MG Oral Tablet TAKE 1-3 TABLETS BY MOUTH 1 HOUR BEFORE BEDTIME FOR RESTLESSNESS NEEDED * Quantity: 60 Refills: 5 Ty Garrido M.D. * Start 15-Feb-2015 Active Sulfamethoxazole-Trimethoprim 800-160 MG Oral Tablet 1 tablet bid x 30 days * Quantity: 60 Refills: 0 Tre Bull M.D. Start 10-Oct-2016 Active Promethazine HCl - 25 MG Oral Tablet Take one tablet every 4 hours as needed for nausea and vomiting. * Refills: 0 Pj Thapa M.D. * Start 04-Nov-2015 Active SUMAtriptan Succinate 100 MG Oral Tablet TAKE 1 TABLET FOR MIGRAINE RELIEF. OCTOBER REPEAT 2 HOURS LATER. MAXIMUM 200MG/DAY. * Refills: 0 Elier Nuñez, Pj Rader * Start 04-Nov-2015 Active Allergies and Adverse Reactions Name Dates Details Codeine Derivatives (Allergy) Status: Active Penicillins (Allergy) Status: Active Past Medical History Name Dates Details Actinic keratosis (702.0, L57.0) Status: Active Allergic rhinitis (477.9, J30.9) Status: Active Asthma (493.90, J45.909) Status: Active Atrial fibrillation (427.31, I48.91) Status: Active Washington's esophagus (530.85, K22.70) Status: Active Benign essential hypertension (401.1, I10) Status: Active Benign prostatic hypertrophy (600.00, N40.0) Status: Active BPH with obstruction/lower urinary tract symptoms (600.01, N40.1) Status: Active Chronic ethmoidal sinusitis (473.2, J32.2) Status: Active Chronic frontal sinusitis (473.1, J32.1) Status: Active Chronic laryngitis (476.0, J37.0) Status: Active Chronic maxillary sinusitis (473.0, J32.0) Status: Active Increased prostate specific antigen (PSA) velocity (790.93, R97.20) Status: Active Laryngopharyngeal reflux (478.79, K21.9) Status: Active Lung disease, chronic obstructive (496, J44.9) Status: Active Multilevel degenerative disc disease (722.6, M53.9) Status: Active Obesity (BMI 30.0-34.9) (278.00, E66.9) Status: Active Obstructive sleep apnea (327.23, G47.33) Status: Active 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, Z95.0) Status: Active Scoliosis (737.30, M41.9) Status: Active Seborrheic keratosis (702.19, L82.1) Status: Active 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, 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 Symptomatic bradycardia (427.89, R00.1) Status: Active History of cholelithiasis (V12.79, Z87.19) Status: Resolved [...] Bilateral History of Prostate Surgery History of Surgery Vas Deferens Vasectomy History of Back Surgery History of Complete Colonoscopy History of Gastroscopy With Biopsy Completed: 25-Mar-2012 Urinalysis, Reflex to Microscopic or Culture PRN [id number] Ordered: 12-Oct-2016 PSA ( PROSTATE SPECIFIC ANTIGEN) 3100 Ordered: 10-Oct-2016 ANAEROBIC CULTURE [id number] Ordered: 07-Nov-2016 Immunization Name Dates Details Fluzone High-Dose SUSP Lot #: [id number] on: 09-Apr-2014 Prevnar 13 Intramuscular Suspension Lot #: [id number] on: 11-May-2016 Fluzone High-Dose 0.5 ML Intramuscular Suspension Prefilled Syringe Lot #: [id number] on: 11-May-2016 Family History Name Dates Details [...] smoker Vital Signs Date Test Result Details 09-Nov-2016 14:28 BP Systolic 140 mm[Hg] Status: Comments: Location: ; Position: BP Diastolic 70 mm[Hg] Status: Comments: Location: ; Position: Heart Rate 87 /min Status: Comments: Location: ; Weight 184 lb Status: Body Mass Index Calculated 29.7 kg/m2 Status: Body Surface Area Calculated 1.93 m2 Status: 17-Oct-2016 09:45 BP Systolic 138 mm[Hg] Status: Comments: Location: ; Position: BP Diastolic 92 mm[Hg] Status: Comments: Location: ; Position: Heart Rate 86 /min Status: Comments: Location: ; Weight 189 lb Status: Body Mass Index Calculated 30.51 kg/m2 Status: Body Surface Area Calculated 1.95 m2 Status: Results Date Description Value Details 06-Nov-2016 09:16 CT SPINE LUMBAR Comments: Exam Date: 11/06/2016 07: 54Dictation Date: 11/06/2016 09:16 XC SPINE LUMBAR 09-Nov-2016 12:45 NASAL CAVITY CULTURE [id number] Comments: [facility] performed at: [place], [facility], [address] [place] [address], [address] [place] [address], Electronic Device Repairer: Tre Gaxiola D.O., MPHQuest Collection Date/Time: [id number] Results Received Date/Time: [id number] Reported Date/Time: [id number] FASTING:NOQuest performed at: [place], [facility], [address] [place] [address], [place], [place], [address] [place] [address], Electronic Device Repairer: Tre Gaxiola D.O., MPHQuest Collection Date/Time: [id number] Results Received Date/Time: [id number] Reported Date/Time: [id number] FASTING:NOQuest performed at: [place], [facility], [address] [place] [address], [place], [place], [address] [place] [address], Electronic Device Repairer: Tre Gaxiola D.O., MPHQuest Collection Date/Time: [id number] Results Received Date/Time: [id number] Reported Date/Time: FASTING:NOQuest performed at: [place], [facility], [address] [place] [address], [place], [place], [address] [place] [address], Electronic Device Repairer: Tre Gaxiola D.O., MPHQuest Collection Date/Time: [id number] Results Received Date/Time: [id number] Reported Date/Time: [id number] FASTING:NOSOURCE (SINUS CULTURE) Sinus Drainage CULTURE, EVALUATION MANAGER/NASAL SEE NOTE Comments: CULTURE, EVALUATION MANAGER/NASAL MICRO NUMBER: [id number] TEST STATUS: PRELIMINARY SPECIMEN SOURCE: DRAINAGE, SINUS SPECIMEN QUALITY: ADEQUATE RESULT: Culture in progress[KS]-- --- SOURCE: DRAINAGE, SINUS Comments: [KS]----- STATUS: FINAL Comments: [KS]----- RESULT: SEE NOTE Comments: No Growth[KS]----- 10-Nov-2016 11:30 EPIDURAL INJECTION Comments: Exam Date: 11/10/2016 10: 43Dictation Date: 11/10/2016 11:30 XF EPIDURAL INJECTION Plan of Care Name Dates Details Planned Observations Planned Goals not documented Planned Encounters Appointment; Provider: Tre Bull M.D. On 12-Nov-2017 12:30 Appointment; Provider: Everton Cummins M.D. On 16-Apr-2017 10:30 Appointment; Provider: Pj Thapa M.D. On 23-Feb-2017 10:00 Appointment; Provider: David Sultana M.D. On 13-Feb-2017 15:15 Appointment; Provider: Schedule Radiology On 10-Nov-2016 11:00 Appointment; Provider: Schedule Radiology On 10-Nov-2016 11:00 Instructions Name Dates Details Instructions not documented Encounters Appointment; Ty Thompson M.D. Encounter Diagnosis: Problem not documented On 07-Nov-2016 08:30 Appointment; Tre Bull M.D. Encounter Diagnosis: Problem not documented On 06-Nov-2016 11:45 Appointment; Sudhir Erickson M.D. Encounter Diagnosis: Problem not documented On 17-Oct-2016 09:15 Appointment; Irasema Parker A.P.R.N. Encounter Diagnosis: Problem [...] documented On 04-Nov-2015 14:30 Appointment; Ty Lopes M.D.,[facility], Encounter Diagnosis: Problem not documented [...] Problem not documented On 26-May-2015 10:15 Appointment; Sudihr Kirk M.D. Encounter Diagnosis: Problem not documented [...]
--- OUTSIDE RECORDS SUMMARY | 2017-04-03 09:52 | XMS REPORT | Summary of Care ---
Author Author Jay Nuñez, Dior Dixon Unknown Address Unknown Phone Unavailable Care Team Providers Care Alodize Machine Helper Name Role Phone Hema Nuñez, Bk Crawford Unavailable Unavailable Tavares Lopes Unavailable Unavailable Elier Nuñez, Dior Oliva Unavailable Unavailable Jay Nuñez, Dior Crawford Unavailable Unavailable Miranda Nuñez, Hever Gallo Unavailable Unavailable Reagan Nuñez, eDreje Peguero Unavailable Unavailable Pj Thapa Unavailable Unavailable [...] Obesity (BMI 30.0-34.9) (278.00, E66.9) Status: Active Acute non-recurrent maxillary sinusitis (461.0, [...] Benign essential hypertension (401.1, I10) Status: Active Actinic keratosis (702.0, L57.0) Status: Active Seborrheic keratosis (702.19, L82.1) Status: Active Laryngopharyngeal reflux (478.79, K21.9) Status: Active Chronic laryngitis (476.0, J37.0) Status: Active Chronic maxillary sinusitis (473.0, J32.0) Status: Active Chronic ethmoidal sinusitis (473.2, J32.2) Status: Active Chronic frontal sinusitis (473.1, J32.1) Status: Active Medications Name Dates Details Multiple [...] * Quantity: 90 Refills: 3 Ty Lopes Start Active ClonazePAM 0.5 MG Oral Tablet [...] Pj Thapa M.D. * Start 04-Nov-2015 Active Symbicort 160-4.5 MCG/ACT Inhalation Aerosol INHALE 2 PUFFS BY MOUTH TWICE DAILY * Quantity: 10.2 Refills: 3 Elier Nuñez, Pj Dior * Start 18-May-2016 Active Losartan Potassium 25 MG Oral Tablet TAKE 1 TABLET DAILY. * Quantity: 30 Refills: 11 Elier Nuñez, Pj Rader * Start 08-Feb-2016 Active Acetaminophen 500 MG Oral Tablet * Refills: 0 Hema Nuñez, Ty Bourgeois * Start 15-Feb-2016 Active ZyrTEC Allergy 10 MG Oral Capsule Take one tablet daily * Refills: 0 Miranda Nuñez, Sabino Kathleen * Start 27-Mar-2016 Active LevoFLOXacin 750 MG Oral Tablet TAKE 1 TABLET DAILY. * Quantity: 10 Refills: 0 Elier Nuñez, Pj Rader * Start 29-May-2016 Active Omeprazole 40 MG Oral Capsule Delayed Release TAKE 1 CAPSULE Bedtime * Quantity: 30 Refills: 11 Jay Nuñez, Ty Rader * Start 17-Aug-2016 Active LevoFLOXacin 500 MG Oral Tablet Take 1 tablet daily * Quantity: 14 Refills: 0 Ty Thompson M.D. * Start 17-Aug-2016 End 31-Aug-2016 Active PredniSONE 20 MG Oral Tablet 2 tablets daily for 5 days, 1 tablet daily for 3 days, then 1/2 tablet daily for 3 days then d/c * Quantity: 15 Refills: 0 Ty Thompson M.D. * Start 17-Aug-2016 Active DiazePAM 5 MG Oral Tablet TAKE 1 TABLET 30 MINUTES PRIOR TO PROCEDURE. * Quantity: 1 Refills: 0 Jay Nuñez, Ty Rader * Start 17-Aug-2016 Active Allergies and Adverse Reactions Name Dates [...] History of Gastroscopy With Biopsy Completed: 25-Mar-2012 ENT Precert Ordered: 17-Aug-2016 Immunization Name Dates Details Fluzone High-Dose SUSP Lot #: [id number] on: 09-Apr-2014 Prevnar 13 Intramuscular Suspension Lot #: [id number] on: 11-May-2016 Fluzone High-Dose 0.5 ML Intramuscular Suspension Prefilled Syringe Lot #: [id number] on: 11-May-2016 Family History Name Dates Details [...] smoker Vital Signs Date Test Result Details 17-Aug-2016 08:03 BP Systolic 140 mm[Hg] Status: Comments: Location: ; Position: BP Diastolic 83 mm[Hg] Status: Comments: Location: ; Position: Weight 185 lb Status: Physical Findings 96 Status: Comments: O2 Saturation Body Mass Index Calculated 29.86 kg/m2 Status: Body Surface Area Calculated 1.93 m2 Status: 11-Aug-2016 09:51 BP Systolic 120 mm[Hg] Status: Comments: Location: ; Position: BP Diastolic 70 mm[Hg] Status: Comments: Location: ; Position: Heart Rate 84 /min Status: Weight 186 lb Status: Physical Findings 93 [...] >60 ml/min Range: >60 EST GFR, NON-AFR KAZAKH 60 ml/min (Below low threshold) Range: >60 [...] infants and children <2 years of age----- 14-Aug-2016 13:33 Urinalysis, Reflex to Microscopic or Culture PRN [id number] pH 7.5 Range: 5.0-7.5 SP GRAVITY 1.010 Range: 1.010-1.030 APPEARANCE CLEAR Range: Clear COLOR YELLOW Range: Straw-Yellow PROTEIN NEGATIVE mg/dL Range: Negative-Trace GLUCOSE NEGATIVE mg/dL Range: Negative KETONE NEGATIVE mg/dL Range: Negative BILIRUB NEGATIVE Range: Negative BLOOD NEGATIVE Range: Negative UROBIL 0.2 EU/dL Range: 0.2-1.0 NITRITE NEGATIVE Range: Negative LEUK NEGATIVE Range: Negative 13:58 CT SINUSES Comments: Exam Date: 08/14/2016 13:32Dictation Date: 2016 13:58 XC SINUSES Plan of Care Name Dates Details Planned Observations Planned Goals not documented Planned Encounters Appointment; Provider: David Sultana M.D. On 13-Feb-2017 15:15 Appointment; Provider: Pj Thapa M.D. On 09-Nov-2016 14:15 Appointment; Provider: Ty Lopes M.D.,[facility], On 10-Oct-2016 11:15 Appointment; Provider: Everton Cummins M.D. On 09-Oct-2016 10:45 Appointment; Provider: Ty Thompson M.D. On 13-Sep-2016 10:00 Instructions Name Dates Details Instructions not documented Encounters Appointment; David Sultana M.D. Encounter Diagnosis: Problem [...] 14:30 Appointment; Ty Lopes M.D.,[facility], Encounter Diagnosis: Problem not documented On 04-Oct-2015 [...] documented On 05-Oct-2014 10:00 Appointment; Ty Lopes M.D.,[facility], Encounter Diagnosis: Problem not documented On 28-Sep-2014 [...]
--- OUTSIDE RECORDS SUMMARY | 2017-04-03 09:52 | XMS REPORT | Summary of Care ---
Author Author Ilan Nuñez, Bk Whitehead Organization Unknown Address Unknown Phone Unavailable Care Team Providers Care Filtering Machine Tender Helper Name Role Phone Bk Garrido M.D. Unavailable Unavailable Elier Nuñez, Doir Oliva Unavailable Unavailable Bk Talavera M.D. Unavailable Unavailable Tre Bull M.D. Unavailable Unavailable [...] EVERY DAY * Quantity: 30 Refills: 11 Epp Ty Nuñez 18-Oct-2016 Active Tamsulosin HCl - 0.4 MG Oral Capsule TAKE 1 CAPSULE BY MOUTH AT BEDTIME * Quantity: 90 Refills: 3 Tre Bull M.D. * Start Active SUMAtriptan Succinate 100 MG Oral Tablet TAKE 1 TABLET FOR MIGRAINE RELIEF. OCTOBER REPEAT 2 HOURS LATER. MAXIMUM 200MG/DAY. * Refills: 0 Elier Nuñez, Pj Rader * Start 04-Nov-2015 Active Promethazine HCl - 25 MG Oral Tablet Take one tablet every 4 hours as needed for nausea and vomiting. * Refills: 0 Pj Thapa M.D. * Start 04-Nov-2015 Active Losartan Potassium 25 MG Oral Tablet [...] Tre Bull M.D. * Start 10-Oct-2016 Active Acetaminophen 500 MG Oral Tablet 650 MG 2 TABS AT HS * Refills: 0 Ty Garrido M.D. * Start 15-Feb-2016 Active Baclofen 10 MG Oral Tablet TAKE ONE TABLET BY MOUTH THREE TIMES A DAY NEEDED * Quantity: 30 Refills: 0 Irasema Parker APRN * Start 13-Oct-2016 Active Symbicort 160-4.5 MCG/ACT Inhalation Aerosol INHALE 2 PUFFS BY MOUTH TWICE DAILY * Quantity: 10.2 Refills: 5 Pj Thapa M.D. * Start 26-Oct-2016 Active Xarelto 20 MG Oral Tablet take 1 tablet by mouth every day * Quantity: 30 Refills: 0 Pj Thapa M.D. * Start 26-Oct-2016 Active ClonazePAM 0.5 MG Oral Tablet TAKE 1-3 TABLETS BY MOUTH 1 HOUR BEFORE BEDTIME FOR RESTLESSNESS NEEDED * Quantity: 60 Refills: 5 Ty Garrido M.D. Start 15-Feb-2015 Active Allergies and Adverse Reactions Name [...] Endosc W/ Insert Guide Wire Fol By Goldat Esoph Over Completed: 25-Mar-2012 History of Colonoscopy (Fiberoptic) Forceps Biopsy Completed: 16-Apr-2012 History of Duodenoscopy With Biopsy Completed: 07-Apr-2013 History of Appendectomy As Part Of Other [...] Gastroscopy With Biopsy Completed: 25-Mar-2012 History of Laparoscopic Cholecystectomy With Cholangiography Completed: December-2013 THYROID STIM. HORMONE 3602 Ordered: 14-Nov-2016 LIPID PROFILE 1184 Ordered: 14-Nov-2016 Comprehensive Metabolic Panel 1212 Ordered: 14-Nov-2016 CBC w/ Auto Diff 7150 Ordered: 14-Nov-2016 Immunization Name Dates Details Fluzone High-Dose SUSP Lot #: [id number] on: 09-Apr-2014 Prevnar 13 Intramuscular Suspension Lot #: [id number] on: 11-May-2016 Fluzone High-Dose 0.5 ML Intramuscular Suspension Prefilled Syringe Lot #: [id number] on: 11-May-2016 Family History Name Dates Details [...] smoker Vital Signs Date Test Result Details No Known Vitals to report Results Date Description Value Details Results not documented Plan of Care Name Dates Details Planned Observations Planned Goals not documented Planned Encounters Appointment; Provider: Tre Bull M.D. On 12-Nov-2017 12:30 Appointment; Provider: Everton Cummins M.D. On 16-Apr-2017 10:30 Appointment; Provider: Pj Thapa M.D. On 23-Feb-2017 10:00 Appointment; Provider: David Sultana M.D. On 19-Feb-2017 13:15 Appointment; Provider: Izaiah Bull On 19-Feb-2017 11:30 Appointment; Provider: Schedule Radiology On 10-Nov-2016 11:00 Appointment; Provider: Schedule Radiology On 10-Nov-2016 11:00 Appointment; Provider: Schedule Radiology On 06-Nov-2016 08:00 Appointment; Provider: Schedule Radiology On 13-Oct-2016 15:15 Interventions Provided Labs/Procedures/Imaging* CBC w/ Auto Diff 7150; Done: Oct 12 2016 9:57AM * Comprehensive Metabolic Panel 1212; Done: Oct 12 2016 9:57AM * Lipase 1275; Done: Oct 12 2016 9:57AM * Urinalysis, Reflex to Microscopic or Culture PRN [id number]; Done: Oct 12 2016 8: 55AM * XRay CHEST-PA & LAT; Done: Oct 12 2016 10:14AM Instructions Name Dates Details Instructions not documented [...] On 04-Nov-2015 14:30 Appointment; Ty Lopes M.D.,[facility], Encounter Diagnosis: Problem not documented On 04-Oct-2015 [...]
--- OUTSIDE RECORDS SUMMARY | 2017-04-03 09:53 | XMS REPORT | Summary of Care ---
Author Author Elier Nuñez, Dior Oliva Organization Unknown Address [address] [facility] [place], [place] [id number] Phone Unavailable Care Team Providers Care Power Generation Turbine Room Operator Name Role Phone Bk Garrido M.D. 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, 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) Status: Active Symptomatic bradycardia (427.89, R00.1) Status: Active URI, acute (465.9, J06.9) Status: Active Hip pain, acute, left (719.45, M25.552) Status: Active Atrial fibrillation (427.31, I48.91) Status: Active Washington's esophagus (530.85, K22.70) Status: Active Benign prostatic hypertrophy (600.00, N40.0) Status: Active Obstructive sleep apnea (327.23, G47.33) Status: Active 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, Z95.0) Status: Active Obesity (BMI 30.0-34.9) (278.00, E66.9) Status: Active Asthma (493.90, J45.909) Status: Active Laryngopharyngeal reflux (478.79, J38.7) Status: Active SOB (shortness of breath) on exertion (786.05, R06.02) Status: Active Atrial arrhythmia (427.9, I49.8) Status: Active Basal cell carcinoma of right forearm (173.61, C44.612) Status: Active Actinic keratosis (702.0, L57.0) Status: Active Seborrheic keratosis (702.19, L82.1) Status: Active Benign essential hypertension (401.1, I10) Status: Active Allergic rhinitis (477.9, J30.9) Status: Active Cough (786.2, R05) Status: Active Lung disease, chronic obstructive (496, J44.9) Status: Active Acute non-recurrent maxillary sinusitis (461.0, J01.00) Status: Active Medications Name Dates Details Multiple Vitamins Oral Tablet Active Calcium 600 + D 600-200 MG-UNIT Oral Tablet * Refills: 0 Active Fish Oil 1000 MG Oral Capsule * Refills: 0 Active Fiber CAPS * Refills: 0 Active Pantoprazole Sodium 40 MG Oral Tablet Delayed Release TAKE 1 TABLET BY MOUTH 30 MINUTES BEFORE BREAKFAST EVERY DAY * Quantity: 30 Refills: 11 Ty Thompson M.D. * Start 28-Apr-2010 Active DiphenhydrAMINE HCl - 25 MG Oral Capsule 1 capsule at bedtime to help with sleep and allergies. May take an additional capsule if needed. * Quantity: 30 Refills: 0 Anthony Banks M.D. * Start 23-May-2010 Active Tamsulosin HCl - 0.4 MG Oral Capsule TAKE 1 CAPSULE BY MOUTH AT BEDTIME * Quantity: 90 Refills: 3 Marianne Nuñez, WILLY, , , Ty Chapin * Start Active Vitamin E 400 UNIT Oral Tablet Take one tablet daily * Refills: 0 Ty Garrido M.D. * Start 15-Feb-2015 Active ClonazePAM 0.5 MG Oral Tablet TAKE 1-3 TABLETS BY MOUTH 1 HOUR BEFORE BEDTIME FOR RESTLESSNESS NEEDED * Quantity: 60 Refills: 5 Ty Garrido M.D. * Start 15-Feb-2015 Active Lisinopril 5 MG Oral Tablet take 1 tablet by mouth every day * Quantity: 30 Refills: 0 Sudhir Kirk M.D. * Start 15-Sep-2015 Active Xarelto 20 MG Oral Tablet Take 1 tablet daily * Refills: 0 Sudhir Kirk M.D. * Start 15-Sep-2015 Active SUMAtriptan Succinate 100 MG Oral Tablet TAKE 1 TABLET FOR MIGRAINE RELIEF. MAY REPEAT 2 HOURS LATER. MAXIMUM 200MG/DAY. * Refills: 0 Elier Nuñez, Pj A * Start 04-Nov-2015 Active Promethazine HCl - 25 MG Oral Tablet Take one tablet every 4 hours as needed for nausea and vomiting. * Refills: 0 Elier Nuñez, Pj A * Start 04-Nov-2015 Active Symbicort 160-4.5 MCG/ACT Inhalation Aerosol INHALE 2 PUFFS BY MOUTH TWICE DAILY * Quantity: 10.2 Refills: 3 Elier Bustillo., Pj A * Start 12-Nov-2015 Active PredniSONE 10 MG Oral Tablet 4 tabs for 3 days, 3 tabs for 3 days, 2 tabs for 3 days and 1 tab for 3 days * Quantity: 30 Refills: 0 Elier Nuñez, Pj A * Start 08-Feb-2016 Active Losartan Potassium 25 MG Oral Tablet TAKE 1 TABLET DAILY. * Quantity: 30 Refills: 11 Elier Bustillo., Pj A * Start 08-Feb-2016 Active Sulfamethoxazole-Trimethoprim 800-160 MG Oral Tablet One tab BID for 2 weeks * Quantity: 28 Refills: 0 Elier Nuñez, Pj A * Start 08-Feb-2016 Active Allergies and Adverse Reactions Name Dates [...] zoster (V12.09, Z86.19) Status: Resolved History of Kidney stones, calcium oxalate (592.0, N20.0) Status: Resolved History of Left breast lump [...] History of Gastroscopy With Biopsy Completed: 25-Mar-2012 Procedures not documented Immunization Name Dates Details Fluzone High-Dose SUSP Lot #: [id number] on: 09-Apr-2014 Family History Name Dates Details Family history [...] smoker Vital Signs Date Test Result Details 08-Feb-2016 12:05 BP Systolic 132 mm[Hg] Status: Comments: Location: ; Position: BP Diastolic 78 mm[Hg] Status: Comments: Location: ; Position: Heart Rate 78 /min Status: Comments: Location: ; Weight 183 lb Status: Body Mass Index Calculated 29.54 kg/m2 Status: Body Surface Area Calculated 1.93 m2 Status: Results Date Description Value Details Results not documented Plan of Care Name Dates Details Planned Observations Planned Goals not documented Planned Encounters Appointment; Provider: Ty Lopes M.D.|WILLY Putnam|WILLY Nuñez, On 04-Oct-2016 10:45 Appointment; Provider: David Sultana M.D. On 11-Jul-2016 08:30 Appointment; Provider: Pj Thapa M.D. On 11-May-2016 09:45 Appointment; Provider: Everton Cummins M.D. On 25-Apr-2016 14:00 Appointment; Provider: Everton Cummins M.D. On 27-Mar-2016 11:00 Appointment; Provider: Ty Garrido M.D. On 15-Feb-2016 15:15 Interventions Provided Medication Changes* Losartan Potassium 25 MG Oral Tablet - Start * PredniSONE 10 MG Oral Tablet - Start * Sulfamethoxazole-Trimethoprim 800-160 MG Oral Tablet - Start Instructions Name Dates Details Instructions not documented [...] documented On 04-Nov-2015 14:30 Appointment; Ty Lopes M.D.|Chika|Joaquin,DARIEL,WILLY, Encounter Diagnosis: Problem not documented On 04-Oct-2015 [...] documented On 05-Oct-2014 10:00 Appointment; Ty Lopes M.D.|F.A.C.S.|Joaquin,WILLY|Joaquin,FACS, Encounter Diagnosis: Problem not documented On 28-Sep-2014 [...] documented On 24-Aug-2014 10:15 Appointment; Sudhir Kirk M.D. Encounter Diagnosis: Problem not documented On 22-Jul-2014 13:30 Appointment; Christoph Scruggs M.D.|F.A.C.S.|MArabella,WILLY|Joaquin,FACS, Encounter Diagnosis: Problem not documented On 15-Jul-2014 14:00 Appointment; Christoph Scruggs M.D.|F.A.C.S.|Joaquin,WILLY|MArabella,FACS, Encounter Diagnosis: Problem not documented On 17-Jun-2014 14:15 Appointment; Christoph Scruggs M.D.|F.A.C.S.|M.D.,FACS|M.D.,FACS, Encounter Diagnosis: Problem not documented On 25-May-2014 13:45 Appointment; Sherlyn Huerta M.D. Encounter Diagnosis: Problem not documented On 15-May-2014 09:30 Appointment; Ty Lopes M.D.|F.A.C.S.|M.D.,FACS|M.D.,FACS, Encounter Diagnosis: Problem not documented On 13-May-2014 14:45 Appointment; Christoph Scruggs M.D.|F.A.C.S.|M.D.,FACS|M.D.,FACS, Encounter Diagnosis: Problem not documented On 13-May-2014 14:00 Appointment; Christoph Scruggs M.D.|F.A.C.S.|M.DLala,FACS|MLalaDLala,FACS, Encounter Diagnosis: Problem not documented On 07-May-2014 11:30 Appointment; Conor Craig M.D. Encounter Diagnosis: Problem not documented On 05-May-2014 09:45 Appointment; Ty Lopes M.D.|F.A.C.S.|M.D.,FACS|M.D.,FACS, Encounter Diagnosis: Problem not documented On 04-May-2014 08:30 Appointment; Christoph Scruggs M.D.|F.A.C.S.|M.D.,FACS|MLalaDLala,FACS, Encounter Diagnosis: Problem not documented On 27-Apr-2014 10:30 Appointment; Sudhir Kirk M.D. Encounter Diagnosis: Problem not documented On 16-Apr-2014 10:30 Appointment; Conor Craig M.D. Encounter Diagnosis: Problem not documented On 16-Apr-2014 08:45 Appointment; Conor Craig M.D. Encounter Diagnosis: Problem not documented On 09-Apr-2014 14:00 Appointment; Melodie Jessica Encounter Diagnosis: Problem not documented On 09-Apr-2014 11:45 Appointment; Christoph Scruggs M.D.|F.A.C.S.|M.D.,FACS|M.D.,FACS, Encounter Diagnosis: Problem not documented On 09-Apr-2014 11:15 Appointment; Christoph Scruggs M.D.|F.A.C.SLala|Joaquin,DARIEL,WILLY, Encounter Diagnosis: Problem not documented On 04-Mar-2014 13:45 Appointment; Sherlyn Huerta M.D. Encounter Diagnosis: Problem not documented On 24-Feb-2014 08:45 Appointment; Christoph Scruggs M.D.|F.A.C.SLala|Joaquin,WILLY|Joaquin,WILLY, Encounter Diagnosis: Problem not documented On 23-Feb-2014 11:15 Appointment; Sudhir Kirk M.D. Encounter Diagnosis: Problem not documented On 20-Feb-2014 09:30 Appointment; Sherlyn Huerta M.D. Encounter Diagnosis: Problem not documented On 18-Feb-2014 08:45 Appointment; Ty Lopes M.D.|Silviano.A.C.SLala|Joaquin,DARIEL,WILLY, Encounter Diagnosis: Problem not documented On 13-Feb-2014 09:30 Appointment; Ty Garrido M.D. Encounter Diagnosis: Problem not documented On 11-Feb-2014 16:00"
--- OUTSIDE RECORDS SUMMARY | 2017-04-03 09:53 | XMS REPORT | Summary of Care ---
Author Author Elier Nuñez, Dior Oliva Organization Unknown Address [address] [place], [place] [id number] Phone Unavailable Care Team Providers Care Rendering Equipment Tender Name Role Phone Bk Garrido M.D. [...] (493.90, J45.909) Status: Active Laryngopharyngeal reflux (478.79, K21.9) Status: Active Allergic rhinitis (477.9, J30.9) Status: Active Acute non-recurrent maxillary sinusitis (461.0, [...] Active Atrial fibrillation (427.31, I48.91) Status: Active Lung disease, chronic obstructive (496, J44.9) Status: Active Obstructive sleep apnea (327.23, G47.33) Status: Active Benign essential hypertension (401.1, I10) Status: Active Leg cramps (729.82, R25.2) Status: Active UTI symptoms (788.99, R39.9) Status: Active Nasal bleeding (784.7, R04.0) Status: Active Medications Name Dates Details Multiple Vitamins Oral Tablet Active Fish Oil 1000 MG Oral Capsule * Refills: 0 Active Fiber CAPS * Refills: 0 Active Pantoprazole Sodium 40 MG Oral Tablet Delayed Release TAKE 1 TABLET BY MOUTH 30 MINUTES BEFORE BREAKFAST EVERY DAY * Quantity: 30 Refills: 11 Ty Thompson M.D. * Start 28-Apr-2010 Active Tamsulosin HCl - 0.4 MG Oral Capsule TAKE 1 CAPSULE BY MOUTH AT BEDTIME * Quantity: 90 Refills: 3 Ty Lopes * Start Active ClonazePAM 0.5 MG Oral Tablet [...] 200MG/DAY. * Refills: 0 Pj Thapa M.D. * Start 04-Nov-2015 Active Promethazine HCl - 25 MG Oral Tablet Take one tablet every 4 hours as needed for nausea and vomiting. * Refills: 0 Pj Thapa M.D. * Start 04-Nov-2015 Active Symbicort 160-4.5 MCG/ACT Inhalation Aerosol INHALE 2 PUFFS BY MOUTH TWICE DAILY * Quantity: 10.2 Refills: 3 Pj Thapa M.D. Start 18-May-2016 Active Losartan Potassium 25 MG Oral Tablet TAKE 1 TABLET DAILY. * Quantity: 30 Refills: 11 Pj Thapa M.D. * Start 08-Feb-2016 Active Acetaminophen 500 MG Oral Tablet * Refills: 0 Hema NuñezTy * Start 15-Feb-2016 Active ZyrTEC Allergy 10 MG Oral Capsule Take one tablet daily * Refills: 0 Sabino Jean M.D. Hever * Start 27-Mar-2016 Active LevoFLOXacin 750 MG Oral Tablet TAKE 1 TABLET DAILY. * Quantity: 10 Refills: 0 Elier NuñezPj * Start 29-May-2016 Active Allergies and Adverse Reactions Name Dates [...] Dates Details Fluzone High-Dose SUSP Lot #: [id number] on: 09-Apr-2014 Prevnar 13 Intramuscular Suspension Lot #: [id number] on: 11-May-2016 Fluzone High-Dose 0.5 ML Intramuscular Suspension Prefilled Syringe Lot #: [id number] on: 11-May-2016 Family History Name Dates Details [...] >60 ml/min Range: >60 EST GFR, NON-AFR [place] 60 ml/min (Below low threshold) Range: >60 [...] Cummins M.D. On 25-Sep-2016 10:15 Appointment; Provider: David Sultana M.D. On 15-Aug-2016 15:15 Interventions Provided Labs/Procedures/Imaging* CT SINUSES; To be [...] documented On 04-Nov-2015 14:30 Appointment; Ty Lopes M.D.,[facility], Encounter Diagnosis: Problem not documented On [...] Problem not documented On 10:00 Appointment; Sudhir Krik M.D. Encounter Diagnosis: Problem not documented On 15:45 Appointment; David Sultana M.D. Encounter Diagnosis: Problem not documented On 24-Nov-2014 10:00 Appointment; David Sultana M.D. Encounter Diagnosis: Problem not documented On 26-Oct-2014 16:30 Appointment; David Sultana M.D. Encounter Diagnosis: Problem not documented On 12-Oct-2014 09:30 Appointment; David Sultana M.D. Encounter Diagnosis: Problem not documented On 05-Oct-2014 10:00 Appointment; Ty Lopes M.D.,[facility], Encounter Diagnosis: Problem not documented On 28-Sep-2014 [...]
--- OUTSIDE RECORDS SUMMARY | 2017-04-03 09:54 | XMS REPORT | Summary of Care ---
Author Author Reagan Nuñez, Dereje Dixon Unknown Address [address] [place], [place] [id number] Phone Unavailable Care Team Providers Care Electromedical Service Engineer Name Role Phone Bk Garrido M.D. [...] Right elbow pain (719.42, M25.521) Status: Active Pre-operative exam (V72.84, Z01.818) Status: Active Washington's esophagus (530.85, K22.70) Status: Active Olecranon bursitis (726.33, M70.20) Status: Active Laryngopharyngeal reflux (478.79, J38.7) Status: Active Ventral hernia (553.20, K43.9) Status: Active Bronchitis (490, J40) Status: Active Actinic keratosis (702.0, L57.0) Status: Active 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, 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 Post op infection (998.59, T81.4XXA) Status: Active Benign prostatic hypertrophy (600.00, N40.0) Status: Active Dressing change (V58.30, Z48.00) Status: Active Visit for wound check (V58.89, Z51.89) Status: Active Seborrheic keratosis (702.19, L82.1) Status: Active 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, 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: Active Acute upper respiratory infection (465.9, J06.9) Status: Active Fracture of facial bones (802.8, [...] Left ureteral stone (592.1, N20.1) Status: Active Medications Name Dates Details Multiple [...] DAILY * Quantity: 15 Refills: 0 Dinorah Merritt.* Started ActiveVitamin E 400 UNIT Oral Tablet [...] Details History of Basal cell carcinoma of skin 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, C44.310) Status: Resolved History of herpes zoster (V12.09, Z86.19) Status: Resolved History of small bowel obstruction (V12.79, Z87.19) Status: Resolved 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, 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 History of Urinary retention (788.20, R33.9) Status: Resolved Personal history of skin cancer [...] Details Fluzone High-Dose Intramuscular Suspension Lot #: [id number] Administered on:09-Apr-2014 Social History Name Dates Details Smoking Status* Never smoker Vital Signs Date Test Result Details 26-Mar-2015 09:09 BP Systolic 120 mm[Hg] Status: BP Diastolic 92 mm[Hg] Status: Heart Rate 64 /min Status: Respiration Rate 16 /min Status: Weight 190 lb Status: Body Mass Index Calculated 30.67 kg/m2 Status: Body Surface Area Calculated 1.96 m2 Status: Results Date Description Value Details 26-Mar-2015 09:37 Urinalysis, Reflex to Microscopic or Culture PRN 8005 pH 7.0 (Better) Range: 5.0-7.5 SP GRAVITY 1.010 (Better) Range: 1.010-1.030 APPEARANCE CLEAR (Better) Range: Clear COLOR YELLOW (Better) Range: Straw-Yellow PROTEIN NEGATIVE mg/dL (Better) Range: Negative-Trace GLUCOSE NEGATIVE mg/dL (Better) Range: Negative KETONE NEGATIVE mg/dL (Better) Range: Negative BILIRUB NEGATIVE (Better) Range: Negative BLOOD SMALL (Abnormal) Range: Negative UROBIL 0.2 EU/dL (Better) Range: 0.2-1.0 NITRITE NEGATIVE (Better) Range: Negative LEUK NEGATIVE (Better) Range: Negative 09:37 Urine Microscopic UMIC RBC 6-10 /HPF (Abnormal) Range: 0-2 MUCUS 1+ /LPF (Better) Range: Negative-2+ 10:14 CBC w/ Auto Diff 7150 WBC 6.1 K/uL (Better) Range: 4.5-11.0 RBC 4.79 mil/uL (Better) Range: 4.20-5.40 HGB 15.9 g/dL (Better) Range: 14.0-18.0 HCT 47.1 % (Better) Range: 42.0-53.0 MCV 98.4 fL (Better) Range: 80.0-99.0 MCH 33.1 pg (Above high threshold) Range: 27.3-32.5 MCHC 33.6 % (Better) Range: 32.0-36.0 RDW 13.3 % (Better) Range: 11.6-14.8 PLATELETS 205 K/uL (Better) Range: 150-400 MPV 7.4 fL (Better) Range: 6.0-11.0 %NEUTRO 55.6 % (Better) Range: 37.0-80.0 %LYMPHS 28.8 % (Better) Range: 13.0-50.0 %MONO 8.6 % (Better) Range: 0.0-12.0 %EOS 3.9 % (Better) Range: 0.0-7.0 %BASO 0.7 % (Better) Range: 0.0-2.5 %JAZMINE 2.4 % (Better) Range: 0.0-5.0 NEUTRO 3.4 K/uL (Better) Range: 2.0-6.9 LYMPHS 1.8 K/uL (Better) Range: 0.6-3.4 MONOS 0.5 K/uL (Better) Range: 0.0-0.9 EOS 0.2 K/uL (Better) Range: 0.0-0.7 BASO 0.0 K/uL (Better) Range: 0.0-0.2 10:54 Comprehensive Metabolic Panel 1212 SODIUM 137 mmol/L (Better) Range: 133-144 POTASSIUM 4.0 mmol/L (Better) Range: 3.5-5.1 CHLORIDE 100 mmol/L (Better) Range: 98-110 CARBON DIOXIDE 27.4 mmol/L (Better) Range: 23.0-33.0 ANION GAP 10 mmol/L (Better) Range: 6-16 BUN 15 mg/dL (Better) Range: 7-18 CREATININE, SERUM 1.33 mg/dL (Above high threshold) Range: 0.70-1.30 Comments: Please note new reference ranges effective 2014.----- BUN:CREATININE RATIO 11 (Better) EST GFR, >60 ml/min (Better) Range: >60 EST GFR, NON-AFR [place] 52 ml/min (Below low threshold) Range: >60 Comments: EST GFR is reported in ml/min per 1.73 m2 of body surface area. For -Bots[place], please multiple result by 1.2.----- GLUCOSE 98 mg/dL (Better) Range: 70-100 ALK PHOSPHATASE 80 U/L (Better) Range: 46-116 TOTAL BILIRUBIN 1.70 mg/dL (Above high threshold) Range: 0.20-1.00 AST 27 U/L (Better) Range: 8-35 ALT 34 U/L (Better) Range: 16-63 Comments: Please note new reference ranges. Effective 09/10/2014.----- ALBUMIN 3.7 g/dL (Better) Range: 3.4-5.0 TOTAL PROTEIN 7.4 g/dL (Better) Range: 6.4-8.2 A/G RATIO 1.0 units (Better) Range: 1.0-1.8 CALCIUM 8.9 mg/dL (Better) Range: 8.5-10.1 11:40 CT AB/ PEL WITHOUT AND WITH ORAL AND IV CONTRAST Comments: Exam Date: 03/26/2015 09:47Dictation Date: 03/26/2015 11:40 XC ABD/PEL W/O & W/ (Better) Plan of Care Planned Observations* Name Dates Details Planned Goals not documented Goal Planned Encounters* Appointment; Provider: Ty Garrido On 21-Feb-2016 10:30 * Appointment; Provider: Ty Lopes On 04-Oct-2015 10:15 * Appointment; Provider: David Sultana On 26-May-2015 10:15 * Appointment; Provider: Ty Lopes On 18-May-2015 13:45 * Appointment; Provider: David Sultana On 23-Sep-2014 [...] Diagnosis: Problem not documented On 15-Sep-2013 10:45 Appointment; Sherlyn Huerta Encounter Diagnosis: Problem not documented On 28-Jul-2013 11:30 Appointment; Ty Thompson Encounter Diagnosis: Problem not documented On 24-Apr-2013 08:30
--- OUTSIDE RECORDS SUMMARY | 2017-04-03 09:54 | XMS REPORT | Summary of Care ---
Author Author Dre Nuñez, Sudhir Dixon Unknown Address [address] [place] [address] Phone Unavailable Care Team Providers Care Chief Executive Name Role Phone Bk Garrido M.D. Unavailable Unavailable Elier Nuñez, Dior Oliva Unavailable Unavailable Sudhir Erickson M.D. Unavailable Unavailable Jorgito Nuñez, Tre Unavailable Unavailable Irasema Parker APRN Unavailable Unavailable [...] Active Nasal bleeding (784.7, R04.0) Status: Active Lower back pain (724.2, M54.5) Status: Active Difficulty breathing (786.09, R06.89) Status: Active Acute right flank pain (789.09, R10.9) Status: Active Benign prostatic hypertrophy (600.00, N40.0) Status: Active Actinic keratosis (702.0, L57.0) Status: Active Seborrheic keratosis (702.19, L82.1) Status: Active Obstructive sleep apnea (327.23, G47.33) Status: Active Washington's esophagus (530.85, K22.70) Status: Active Laryngopharyngeal reflux (478.79, K21.9) Status: Active 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, Z95.0) Status: Active Symptomatic bradycardia (427.89, R00.1) Status: Active Atrial fibrillation (427.31, I48.91) Status: [...] Chronic frontal sinusitis (473.1, J32.1) Status: Active BPH with obstruction/lower urinary tract symptoms (600.01, N40.1) Status: Active Increased prostate specific antigen (PSA) velocity (790.93, R97.20) Status: Active Multilevel degenerative disc disease (722.6, M53.9) Status: Active Scoliosis (737.30, M41.9) Status: Active Right low back pain (724.2, M54.5) Status: Active Medications Name Dates Details Multiple [...] Ty Garrido M.D. * Start 15-Feb-2015 Active Xarelto 20 MG Oral Tablet TAKE 1 TABLET BY MOUTH EVERY DAY - PLEASE START ON 09/15/15 * Quantity: 30 Refills: 0 Pj Thapa M.D. * Start 13-Sep-2016 Active SUMAtriptan Succinate 100 [...] Quantity: 10.2 Refills: 3 Pj Thapa M.D. * Start 18-May-2016 Active Losartan Potassium 25 MG Oral Tablet TAKE 1 TABLET DAILY. * Quantity: 30 Refills: 11 Pj Thapa M.D. * Start 08-Feb-2016 Active Acetaminophen 500 MG Oral Tablet 650 MG 2 TABS AT HS * Refills: 0 Ty Garrido M.D. Start 15-Feb-2016 Active ZyrTEC Allergy 10 MG Oral Capsule Take one tablet daily * Refills: 0 Sabino Jean M.D. * Start 27-Mar-2016 Active Omeprazole 40 MG Oral Capsule Delayed Release TAKE 1 CAPSULE Bedtime * Quantity: 30 Refills: 11 Ty Thompson M.D. Start 17-Aug-2016 Active Sulfamethoxazole-Trimethoprim 800-160 MG Oral Tablet 1 tablet bid x 30 days * Quantity: 60 Refills: 0 Tre Bull M.D. Start 10-Oct-2016 Active Baclofen 10 MG Oral Tablet TAKE ONE TABLET BY MOUTH THREE TIMES A DAY NEEDED * Quantity: 30 Refills: 0 Irasema Parker APRN Start 13-Oct-2016 Active Allergies and Adverse Reactions [...] History of Gastroscopy With Biopsy Completed: 25-Mar-2012 PSA ( PROSTATE SPECIFIC ANTIGEN) 3100 Ordered: 10-Oct-2016 Urinalysis, Reflex to Microscopic or Culture PRN [id number] Ordered: 12-Oct-2016 Immunization Name Dates Details Fluzone High-Dose SUSP Lot #: [id number] on: 09-Apr-2014 Prevnar 13 Intramuscular Suspension Lot #: [id number] on: 11-May-2016 Fluzone High-Dose 0.5 ML Intramuscular Suspension Prefilled Syringe Lot #: [id number] on: 11-May-2016 Family History Name Dates Details [...] smoker Vital Signs Date Test Result Details 17-Oct-2016 09:45 BP Systolic 138 mm[Hg] Status: Comments: Location: ; Position: BP Diastolic 92 mm[Hg] Status: Comments: Location: ; Position: Heart Rate 86 /min Status: Comments: Location: ; Weight 189 lb Status: Body Mass Index Calculated 30.51 kg/m2 Status: Body Surface Area Calculated 1.95 m2 Status: 13-Oct-2016 13:59 BP Systolic 110 mm[Hg] Status: Comments: Location: LUE; Position: Sitting BP Diastolic 72 mm[Hg] Status: Comments: Location: LUE; Position: Sitting Heart Rate 86 /min Status: Comments: Location: ; Weight 186.4 lb Status: Physical Findings 95 Status: Comments: O2 Saturation Body Mass Index Calculated 30.09 kg/m2 Status: Body Surface Area Calculated 1.94 m2 Status: 12-Oct-2016 11:16 BP Systolic 124 mm[Hg] Status: Comments: Location: ; Position: BP Diastolic 76 mm[Hg] Status: Comments: Location: ; Position: Heart Rate 76 /min Status: Comments: Location: [...] attached to this order: Extra Tube, IRASEMA, PROGRAM DIRECTOR CABLE TELEVISION Charge WBC 5.0 K/uL Range: 4.5-11.0 RBC [...] attached to this order: Extra Tube, IRASEMA, PROGRAM DIRECTOR CABLE TELEVISION Charge SODIUM 136 mmol/L Range: 133-144 POTASSIUM 4.1 mmol/L Range: 3.5-5.1 CHLORIDE 102 mmol/L Range: 98-110 CARBON DIOXIDE 30.5 mmol/L Range: 23.0-33.0 ANION GAP 4 mmol/L (Below low threshold) Range: 6-16 BUN 15 mg/dL Range: 7-18 CREATININE, SERUM 1.15 mg/dL Range: 0.70-1.30 BUN:CREATININE RATIO 13 EST GFR, >60 ml/min Range: >60 EST GFR, NON-AFR [place] >60 ml/min Range: >60 Comments: EST GFR [...] attached to this order: Extra Tube, IRASEMA, PROGRAM DIRECTOR CABLE TELEVISION Charge LIPASE 129 U/L Range: 73-393 10:27 AMYLASE 1250 Comments: Items were attached to this order: Extra Tube, IRASEMA, PROGRAM DIRECTOR CABLE TELEVISION Charge AMYLASE 52 U/L Range: 25-115 13-Oct-2016 [...] Provider: Tre Bull M.D. On 26-Oct-2016 09:15 Appointment; Provider: Sudhir Erickson M.D. On 24-Oct-2016 08:30 Instructions Name Dates Details Instructions not documented [...] documented On 04-Nov-2015 14:30 Appointment; Ty Lopes M.D.,[facility], Encounter Diagnosis: Problem not documented On 04-Oct-2015 [...]
--- OUTSIDE RECORDS SUMMARY | 2017-04-03 09:55 | XMS REPORT ---
Author Author GENERATED, SYSTEM Organization Unknown Address Unknown Phone Unavailable Care Team Providers Care Licensed Psychologist Director Name Role Phone MD LIZETTE, MARY PP Reason For Visit Chief Complaint FEVER, THROAT AND CHEST PAIN Social History Functional Status Vital Signs Results Chemistry from 05/21/2016 9:51 PMLACTIC ACID 1.4 mmol/L (0.9-1.7 mmol/L) Chemistry from 05/21/2016 9:50 PMSODIUM 138 MMOL/L (136-145 MMOL/L) POTASSIUM 4.1 MMOL/L (3.5-5.1 MMOL/L) CHLORIDE 102 MMOL/L (98-107 MMOL/L) TCO2 30.1 MMOL/L (21.0-32.0 MMOL/L) *ANION GAP 5.9 MMOL/L L (8.0-16.0 MMOL/L) BUN 14 MG/DL (7-18 MG/DL) CREATININE 1.45 MG/DL H (0.70-1.30 MG/DL) *BUN/CREATININE RATIO 9.7 (9.1-17.0 ) GLUCOSE 118 MG/DL H (65-99 MG/DL) *GFR EST NON AFR UKRAINIAN 45 ML/MIN *GFR EST AFR AMER 52 ML/MIN CALCIUM 9.1 MG/DL (8.5-10.1 MG/DL) BILIRUBIN TOTAL 1.70 MG/DL H (0.20-1.00 MG/DL) TOTAL PROTEIN 7.7 GM/DL (6.4-8.2 GM/DL) ALBUMIN 4.2 GM/DL (3.4-5.0 GM/DL) *GLOBULIN 3.5 GM/DL (2.3-3.5 GM/DL) *A/G RATIO 1.2 MG/DL L (1.5-2.2 MG/DL) ALK PHOS 77 U/L (46-116 U/L) ALT (SGPT) 32 U/L (14-59 U/L) AST (SGOT) 30 U/L (15-37 U/L) LIPASE 144 U/L (73-393 U/L) TROPONIN-I <0.017 NG/ML (0.000-0.056 NG/ML) B-TYPE NATRIURETIC PROTEIN 73 PG/ML (1-100 PG/ML) Hematology from 05/21/2016 9:50 PMWBC 12.1 X10e3/UL H (3.6-11.2 X10e3/UL) RBC 4.59 X10e6/UL (4.06-5.63 X10e6/UL) HEMOGLOBIN 15.7 G/DL (12.5-16.3 G/DL) HEMATOCRIT 45.2 % (36.7-47.1 %) *MCV 98.5 FL (80.0-100.0 FL) *MCH 34.3 PG H (27.0-33.0 PG) *MCHC 34.8 G/DL (32.0-36.0 G/DL) *RDW 13.1 % (12.3-17.0 %) *RDWSD 45.1 (37.1-47.8 ) PLATELET 187 X10e3/UL (159-386 X10e3/UL) *MPV 6.8 FL L (7.4-10.4 FL) AUTOMATED DIFF PERFORMED SEGS 79.7 % *LYMPHOCYTES 9.4 % *MONOCYTES 9.0 % *EOSINOPHILS 1.1 % *BASOPHILS 0.8 % *ABSOLUTE NEUTROPHILS 9.60 X10e3/UL H (1.80-7.80 X10e3/UL) *ABSOLUTE LYMPHOCYTES 1.10 X10e3/UL (1.00-3.00 X10e3/UL) *ABSOLUTE MONOCYTES 1.10 X10e3/UL H (0.30-1.00 X10e3/UL) *ABSOLUTE EOSINOPHILS 0.10 X10e3/UL (0.00-0.50 X10e3/UL) *ABSOLUTE BASOPHILS 0.10 X10e3/UL (0.00-0.20 X10e3/UL) Coagulation from 05/21/2016 9:50 PM*PROTHROMBIN TIME 12.5 SECONDS H (9.4-11.5 SECONDS) *INR 1.2 H (0.9-1.1 ) Microbiology from 05/21/2016 11:30 PM* *INFLUENZA A ANTIGEN Specimen Number: [id number] Sample Collection Date/Time: 05/21/2016 11:30 PM Specimen Source: Nasopharynx *INFLUENZA A ANTIGEN: NEGATIVE *INFLUENZA B ANTIGEN: NEGATIVE * *INFLUENZA B ANTIGEN Specimen Number: [id number] Sample Collection Date/Time: 05/21/2016 11:30 PM Specimen Source: Nasopharynx *INFLUENZA B ANTIGEN: NEGATIVE *INFLUENZA A ANTIGEN: NEGATIVE DX Radiology from 05/21/2016 10:17 PMCHEST 1 VIEW History: Chest pain Priors: [id number] Findings: There is moderate COPD and mild bibasilar fibrosis. No consolidating infiltrate, pneumothorax or pleural effusions identified. Heart size within normal limits. There are left subclavian cardiac leads in unchanged position. Impression: COPD without acute cardiopulmonary process. Electronically signed by: Aguila Aleman MD Dictated: 05/22/2016 08:51 Problems Encounter Diagnosis No relevant problems exist. Additional Problems * Atrial Flutter Comment:Problem resolved by [facility] upon Discharge, Status:Resolved. * Benign Prostatic Hyperplasia Comment:Problem resolved by [facility] upon Discharge, Status:Resolved. * Fall Risk Comment:Problem resolved by [facility] upon Discharge, Status: Resolved. * Laparoscopic Cholecystectomy Comment:Problem resolved by [facility] upon Discharge, Status:Resolved. * Obstructive Sleep Apnea Syndrome Comment:Problem resolved by [facility] upon Discharge, Status:Resolved. * Repair of Ventral Hernia Comment:Problem resolved by [facility] upon Discharge, Status:Resolved. * Skin Integrity Impairment Risk Comment:Problem resolved by [facility] upon Discharge, Status:Resolved. * Small Bowel Obstruction Comment:Problem resolved by [facility] upon Discharge, Status:Resolved. Encounters Encounter Diagnosis No relevant problems exist. Plan of Care Procedures * Completed Procedure Code: 2ZT018A Procedure Name: not valued, on 09/12/2015 12 :00 AM * Completed Procedure Code: 23FT9NG Procedure Name: not valued, on 09/12/2015 12 :00 AM * Completed Procedure Code: 33D75SP Procedure Name: not valued, on 09/12/2015 12 :00 AM * Completed Procedure Code: [id number] Procedure Name: not valued, on 09/12/2015 12 :00 AM * Completed Procedure Code: U2115PC Procedure Name: not valued, on 09/12/2015 12 :00 AM * Completed ventral hernia with mesh, by MD JUNO VARGAS, on 04/28/2014 9:21 AM * Completed excision of umbilicus, by MD JUNO VARGAS, on 04/28/2014 12:00 AM * Completed Procedure Code: 40518 Procedure Name: not valued, on 04/28/2014 12: 00 AM * Completed Procedure Code: 30086 Procedure Name: not valued, on 04/28/2014 12: 00 AM * Completed Procedure Code: 15884 Procedure Name: not valued, on 04/28/2014 12: 00 AM * Completed olecranon bursectomy, Right, by MD MARQUISE WASHBURN, on 04/20/2014 3: 00 PM * Completed Procedure Code: 73449 Procedure Name: not valued, on 04/20/2014 12: 00 AM * Completed Laparoscopic Cholecystectomy, by MD JUNO VARGAS, on 01/20/2014 12 :13 PM * Completed Procedure Code: 71471 Procedure Name: not valued, on 01/20/2014 12: 00 AM * Completed Procedure Code: 40439 Procedure Name: not valued, on 01/20/2014 12: 00 AM * Completed Procedure Code: 96.07 Procedure Name: not valued, on 12/16/2013 12: 00 AM * Completed , on 08/11/2011 12:00 AM * Completed , on 08/11/2011 12:00 AM * Completed , on 08/11/2011 12:00 AM * Completed , on 01/31/2010 12:00 AM * Completed , on 12/15/2009 12:00 AM Immunizations No immunizations administered or ordered. Hospital Course Hospital Discharge Instructions Allergies, Adverse Reactions, Alerts * Penicillins causes Moderate Swelling/Edema, hives. * Codeine causes Mild stomach ache. * Latex Allergy has not been assessed. * IV Contrast Allergy has not been assessed. * No Known Food Allergies. Medication Medication reconciliation has not been performed.
--- OUTSIDE RECORDS SUMMARY | 2017-04-03 09:55 | XMS REPORT | Summary of Care ---
Author Author Bk Garrido M.D. Organization Unknown Address Unknown Phone Unavailable Care Team Providers Care Cloud Physicist Name Role Phone Bk Garrido M.D. Unavailable Unavailable Marianne Nuñez, WILLY, ,, M Ty Unavailable Unavailable Elier Nuñez, Dior Oliva Unavailable Unavailable Jay Nuñez, Dior Crawford Unavailable Unavailable Reagan Nuñez, P Sudhir Unavailable Unavailable Pj Thapa Unavailable Unavailable Unavailable Unavailable Functional Status Name Dates Details Functional status health issues are not documented Status: Name Dates Details Cognitive status health issues are not documented Status: Problems Name Dates Details Symptomatic bradycardia (427.89, R00.1) Status: Active Hip pain, acute, left (719.45, M25.552) Status: Active Atrial fibrillation (427.31, I48.91) Status: Active Washington's esophagus (530.85, K22.70) Status: Active Benign prostatic hypertrophy (600.00, N40.0) Status: Active 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, Z95.0) Status: Active Obesity (BMI 30.0-34.9) (278.00, E66.9) Status: Active Asthma (493.90, J45.909) Status: Active Laryngopharyngeal reflux (478.79, J38.7) Status: Active Atrial arrhythmia (427.9, I49.8) Status: Active Benign essential hypertension (401.1, I10) Status: Active Allergic rhinitis (477.9, J30.9) Status: Active Cough (786.2, R05) Status: Active Lung disease, chronic obstructive (496, J44.9) Status: Active Acute non-recurrent maxillary sinusitis (461.0, J01.00) Status: Active Actinic keratosis (702.0, L57.0) Status: Active 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, 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 Obstructive sleep apnea (327.23, G47.33) Status: Active SOB (shortness of breath) on exertion (786.05, R06.02) Status: Active Medications Name Dates Details Multiple Vitamins Oral Tablet Active Fish Oil 1000 MG Oral Capsule * Refills: 0 Active Fiber CAPS * Refills: 0 Active Pantoprazole Sodium 40 MG Oral Tablet Delayed Release TAKE 1 TABLET BY MOUTH 30 MINUTES BEFORE BREAKFAST EVERY DAY * Quantity: 30 Refills: 11 Jay Nuñez, Ty Rader * Start 28-Apr-2010 Active Tamsulosin HCl - 0.4 MG Oral Capsule TAKE 1 CAPSULE BY MOUTH AT BEDTIME * Quantity: 90 Refills: 3 Marianne Nuñez, WILLY, , , Ty Chapin * Start Active ClonazePAM 0.5 MG Oral [...] 3 Elier Nuñez, Pj Rader * Start 12-Nov-2015 Active PredniSONE 10 MG Oral Tablet 4 tabs for 3 days, 3 tabs for 3 days, 2 tabs for 3 days and 1 tab for 3 days * Quantity: 30 Refills: 0 Elier Nuñez, Pj Rader * Start 08-Feb-2016 Active Losartan Potassium 25 MG Oral Tablet TAKE 1 TABLET DAILY. * Quantity: 30 Refills: 11 Elier Nuñez, Pj Rader * Start 08-Feb-2016 Active Sulfamethoxazole-Trimethoprim 800-160 MG Oral Tablet One tab BID for 2 weeks * Quantity: 28 Refills: 0 Elier Nuñez, Pj Rader * Start 08-Feb-2016 Active Acetaminophen 500 MG Oral Tablet * Refills: 0 Hema Nuñez, Ty Bourgeois * Start 15-Feb-2016 Active Allergies and Adverse Reactions Name Dates [...] Dates Details Fluzone High-Dose SUSP Lot #: [id number] on: 09-Apr-2014 Family History Name Dates Details [...] smoker Vital Signs Date Test Result Details 15-Feb-2016 15:28 BP Systolic 128 mm[Hg] Status: Comments: Location: ; Position: BP Diastolic 70 mm[Hg] Status: Comments: Location: ; Position: Heart Rate 72 /min Status: Comments: Location: ; Weight 183.8 lb Status: Physical Findings 93 Status: Comments: O2 Saturation Body Mass Index Calculated 29.67 kg/m2 Status: Body Surface Area Calculated 1.93 m2 Status: 08-Feb-2016 12:05 BP Systolic 132 mm[Hg] Status: [...] not documented Planned Encounters Appointment; Provider: Ty Garrido M.D. On 15-Feb-2017 16:00 Appointment; Provider: Ty Lopes M.D.|DARIEL Putnam FACS, On 04-Oct-2016 10:45 Appointment; Provider: David Sultana M.D. On 11-Jul-2016 08:30 Appointment; Provider: Pj Thapa M.D. On 11-May-2016 09:45 Appointment; Provider: Everton Cummins M.D. On 25-Apr-2016 14:00 Appointment; Provider: Everton Cummins M.D. On 27-Mar-2016 11:00 Instructions Name Dates Details Instructions not [...] documented On 04-Nov-2015 14:30 Appointment; Ty Lopes M.D.|DARIEL Putnam,WILLY, Encounter Diagnosis: Problem not documented On 04-Oct-2015 [...] documented On 05-Oct-2014 10:00 Appointment; Ty Lopes M.D.|FLalaALalaCLalaSLala|Joaquin,DARIEL,WILLY, Encounter Diagnosis: Problem not documented On 28-Sep-2014 [...] documented On 22-Jul-2014 13:30 Appointment; Christoph Scruggs M.D.|F.A.C.S.|M.DLala,FACS|MLalaDLala,FACS, Encounter Diagnosis: Problem not documented On 15-Jul-2014 14:00 Appointment; Christoph Scruggs M.D.|F.A.C.S.|M.DLala,FACS|MLalaDLala,FACS, Encounter Diagnosis: Problem not documented On 17-Jun-2014 14:15 Appointment; Christoph Scruggs M.D.|F.A.C.S.|M.DLala,FACS|MLalaDLala,FACS, Encounter Diagnosis: Problem not documented On 25-May-2014 13:45 Appointment; Sherlyn Huerta M.D. Encounter Diagnosis: Problem not documented On 15-May-2014 09:30 Appointment; Ty Lopes M.D.|F.A.C.S.|MLalaDLala,FACS|MLalaDLala,FACS, Encounter Diagnosis: Problem not documented On 13-May-2014 14:45 Appointment; Christoph Scruggs M.D.|F.A.C.S.|M.D.,FACS|MLalaDLala,FACS, Encounter Diagnosis: Problem not documented On 13-May-2014 14:00 Appointment; Christoph Scruggs M.D.|F.A.C.S.|M.D.,FACS|MLalaD.,FACS, Encounter Diagnosis: Problem not documented On 07-May-2014 11:30 Appointment; Conor Craig M.D. Encounter Diagnosis: Problem not documented On 05-May-2014 09:45 Appointment; Ty Lopes M.D.|F.A.C.S.|M.DLala,FACS|MLalaD.,FACS, Encounter Diagnosis: Problem not documented On 04-May-2014 08:30 Appointment; Christoph Scruggs M.D.|F.A.C.S.|M.D.,WILLY|Joaquin,FACS, Encounter Diagnosis: Problem not documented On 27-Apr-2014 10:30 Appointment; Sudhir Kirk M.D. Encounter Diagnosis: Problem not documented On 16-Apr-2014 10:30 Appointment; Conor Craig M.D. Encounter Diagnosis: Problem not documented On 16-Apr-2014 08:45 Appointment; Conor Craig M.D. Encounter Diagnosis: Problem not documented On 09-Apr-2014 14:00 Appointment; Melodie Jessica Encounter Diagnosis: Problem not documented On 09-Apr-2014 11:45 Appointment; Christoph Scruggs M.D.|F.A.C.S.|MLalaDLala,WILLY|MArabella,FACS, Encounter Diagnosis: Problem not documented On 09-Apr-2014 11:15 Appointment; Christoph Scruggs M.D.|F.A.C.S.|M.DLala,FACS|MLalaDLala,FACS, Encounter Diagnosis: Problem not documented On 04-Mar-2014 13:45 Appointment; Sherlyn Huerta M.D. Encounter Diagnosis: Problem not documented On 24-Feb-2014 08:45 Appointment; Christoph Scruggs M.D.|F.A.C.S.|M.DLala,WILLY|MLalaDLala,FACS, Encounter Diagnosis: Problem not documented On 23-Feb-2014 11:15 Appointment; Sudhir Kirk M.D. Encounter Diagnosis: Problem not documented On 20-Feb-2014 09:30 Appointment; Sherlyn Huerta M.D. Encounter Diagnosis: Problem not documented On 18-Feb-2014 08:45"
--- OUTSIDE RECORDS SUMMARY | 2017-04-03 09:56 | XMS REPORT | Summary of Care ---
Author Author Jay Nuñez, Dior Dixon Unknown Address Unknown Phone Unavailable Care Team Providers Care Engine Designer Name Role Phone Bk Garrido M.D. Unavailable [...] Chronic ethmoidal sinusitis (473.2, J32.2) Status: Active Right low back pain (724.2, M54.5) Status: Active Increased prostate specific antigen (PSA) velocity (790.93, R97.20) Status: Active BPH with obstruction/lower urinary tract symptoms (600.01, N40.1) Status: Active Lower back pain (724.2, M54.5) [...] Status: Active Epistaxis (784.7, R04.0) Status: Active Medications Name Dates Details Multiple Vitamins Oral Tablet Active Fish Oil 1000 MG Oral Capsule * Refills: 0 Active Fiber CAPS * Refills: 0 Active Pantoprazole Sodium 40 MG Oral Tablet Delayed Release TAKE 1 TABLET BY MOUTH 30 MINUTES BEFORE BREAKFAST EVERY DAY * Quantity: 30 Refills: 11 Ty Thompson M.D. Start 18-Oct-2016 Active Tamsulosin HCl - 0.4 MG Oral Capsule TAKE 1 CAPSULE BY MOUTH AT BEDTIME * Quantity: 90 Refills: 3 Tre Bull M.D. Start Active ClonazePAM 0.5 MG Oral Tablet TAKE 1-3 TABLETS BY MOUTH 1 HOUR BEFORE BEDTIME FOR RESTLESSNESS NEEDED * Quantity: 60 Refills: 5 Ty Garrido M.D. * Start 15-Feb-2015 Active Xarelto 20 MG Oral Tablet take 1 tablet by mouth every day * Quantity: 30 Refills: 0 Pj Thapa M.D. * Start 26-Oct-2016 Active SUMAtriptan Succinate 100 MG Oral Tablet [...] Pj Thapa M.D. * Start 26-Oct-2016 Active Losartan Potassium 25 MG Oral Tablet TAKE 1 TABLET DAILY. * Quantity: 30 Refills: 11 Pj Thapa M.D. * Start 08-Feb-2016 Active Acetaminophen 500 MG Oral Tablet 650 MG 2 TABS AT HS * Refills: 0 Ty Garrido M.D. * Start 15-Feb-2016 Active ZyrTEC Allergy 10 MG Oral Capsule Take one tablet daily * Refills: 0 Sabino Jean M.D. Start 27-Mar-2016 Active Omeprazole 40 MG Oral [...] 0 Irasema Parker APRN Start 13-Oct-2016 Active Clarithromycin ER 500 MG Oral Tablet Extended Release 24 Hour TAKE 2 TABLETS ONCE DAILY UNTIL FINISHED. * Quantity: 28 Refills: 0 Ty Thompson M.D. Start 07-Nov-2016 End 21-Nov-2016 Active Allergies and Adverse Reactions Name Dates [...] Microscopic or Culture PRN [id number] Ordered: 12-Oct-2016 ANAEROBIC CULTURE [id number] Ordered: 07-Nov-2016 NASAL CAVITY CULTURE [id number] Ordered: 07-Nov-2016 EPIDURAL INJECTION Ordered: 06-Nov-2016 Immunization Name Dates Details Fluzone High-Dose SUSP Lot #: [id number] on: 09-Apr-2014 Prevnar 13 Intramuscular Suspension Lot #: [id number] on: 11-May-2016 Fluzone High-Dose 0.5 ML Intramuscular Suspension Prefilled Syringe Lot #: [id number] on: 11-May-2016 Family History Name Dates Details [...] attached to this order: Extra Tube, IRASEMA, CHARGE AIDE Charge WBC 5.0 K/uL Range: 4.5-11.0 RBC [...] attached to this order: Extra Tube, IRASEMA, CHARGE AIDE Charge SODIUM 136 mmol/L Range: 133-144 POTASSIUM 4.1 mmol/L Range: 3.5-5.1 CHLORIDE 102 mmol/L Range: 98-110 CARBON DIOXIDE 30.5 mmol/L Range: 23.0-33.0 ANION GAP 4 mmol/L (Below low threshold) Range: 6-16 BUN 15 mg/dL Range: 7-18 CREATININE, SERUM 1.15 mg/dL Range: 0.70-1.30 BUN:CREATININE RATIO 13 EST GFR, >60 ml/min Range: >60 EST GFR, NON-AFR GEORGIAN >60 ml/min Range: >60 Comments: EST GFR [...] attached to this order: Extra Tube, IRASEMA, CHARGE AIDE Charge LIPASE 129 U/L Range: 73-393 10:27 AMYLASE 1250 Comments: Items were attached to this order: Extra Tube, IRASEMA, CHARGE AIDE Charge AMYLASE 52 U/L Range: 25-115 13-Oct-2016 [...] 16:31 XC ABD PEL W/O (RENAL STONE) 06-Nov-2016 09:16 CT SPINE LUMBAR Comments: Exam Date: 11/06/2016 07: 54Dictation Date: 11/06/2016 09:16 XC SPINE LUMBAR Plan of Care Name Dates Details Planned Observations Planned Goals not documented Planned Encounters Appointment; Provider: Tre Bull M.D. On 12-Nov-2017 12:30 Appointment; Provider: Everton Cummins M.D. On 16-Apr-2017 10:30 Appointment; Provider: David Sultana M.D. On 13-Feb-2017 15:15 Appointment; Provider: Pj Thapa M.D. On 09-Nov-2016 14:15 Interventions Provided Medication Changes* Clarithromycin ER 500 MG Oral Tablet Extended Release 24 Hour - Start Labs/Procedures/Imaging* ANAEROBIC CULTURE [id number]; To be Done: 07 Nov 2016 * NASAL CAVITY CULTURE [id number]; To be Done: 07 Nov 2016 Instructions Name Dates Details Instructions not documented Encounters Appointment; Tre Bull M.D. Encounter Diagnosis: Problem not documented On 06-Nov-2016 11:45 Appointment; Sudhir Erickson M.D. Encounter Diagnosis: Problem not documented On 17-Oct-2016 09:15 Appointment; Irasema Parker A.PLalaRLalaNLala Encounter Diagnosis: Problem not documented On 13-Oct-2016 [...] documented On 04-Nov-2015 14:30 Appointment; Ty Lopes M.D.,[facility], Encounter Diagnosis: Problem not documented On 04-Oct-2015 [...]
--- OUTSIDE RECORDS SUMMARY | 2017-04-03 09:57 | XMS REPORT | Summary of Care ---
Author Author Elier Nuñez, Dior Oliva Organization Unknown Address [address] [place], [place] [id number] Phone Unavailable Care Team Providers Care Television Installer Name Role Phone Bk Garrido M.D. 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 * Start 15-Feb-2016 Active Allergies and Adverse [...] Vas Deferens Vasectomy History of Complete Colonoscopy Comprehensive Metabolic Panel 1212 Ordered: 16-Mar-2016 MAGNESIUM 1260 Ordered: 16-Mar-2016 ULTRASOUND LEG VEINS LEFT Ordered: 16-Mar-2016 Immunization Name Dates Details Fluzone High-Dose SUSP Lot #: [id number] on: 09-Apr-2014 Family History Name Dates Details [...] smoker Vital Signs Date Test Result Details 16-Mar-2016 14:24 BP Systolic 130 mm[Hg] Status: Comments: Location: ; Position: BP Diastolic 80 mm[Hg] Status: Comments: Location: ; Position: Heart Rate 108 /min Status: Comments: Location: ; Weight 181 lb Status: Physical Findings 93 Status: Comments: O2 Saturation Body Mass Index Calculated 29.21 kg/m2 Status: Body Surface Area Calculated 1.92 m2 Status: 15-Feb-2016 15:28 BP Systolic 128 mm[Hg] Status: Comments: Location: ; Position: BP Diastolic 70 mm[Hg] Status: Comments: Location: ; Position: Heart Rate 72 /min Status: Comments: Location: ; Weight 183.8 lb Status: Physical Findings 93 Status: Comments: O2 Saturation Body Mass Index Calculated 29.67 kg/m2 Status: Body Surface Area Calculated 1.93 m2 Status: Results Date Description Value Details 16-Mar-2016 15:08 CBC w/ Auto Diff 7150 WBC 5.9 K/uL Range: 4.5-11.0 RBC 4.86 mil/uL Range: 4.20-5.40 HGB 16.6 g/dL Range: 14.0-18.0 HCT 47.4 % Range: 42.0-53.0 MCV 97.4 fL Range: 80.0-99.0 MCH 34.2 pg (Above high threshold) Range: 27.3-32.5 MCHC 35.1 % Range: 32.0-36.0 RDW 13.8 % Range: 11.6-14.8 PLATELETS 235 K/uL Range: 150-400 MPV 6.3 fL Range: 6.0-11.0 %NEUTRO 67.6 % Range: 37.0-80.0 %LYMPHS 21.2 % Range: 13.0-50.0 %MONO 6.9 % Range: 0.0-12.0 %EOS 1.8 % Range: 0.0-7.0 %BASO 0.6 % Range: 0.0-2.5 %JAZMINE 2.0 % Range: 0.0-5.0 NEUTRO 4.0 K/uL Range: 2.0-6.9 LYMPHS 1.3 K/uL Range: 0.6-3.4 MONOS 0.4 K/uL Range: 0.0-0.9 EOS 0.1 K/uL Range: 0.0-0.7 BASO 0.0 K/uL Range: 0.0-0.2 Plan of Care Name Dates Details Planned Observations Planned Goals not documented Planned Encounters Appointment; Provider: Ty Lopes M.D.|Chika|Joaquin,WILLY|WILLY Nuñez, On 04-Oct-2016 10:45 Appointment; Provider: David Sultana M.D. On 11-Jul-2016 08:30 Appointment; Provider: Pj Thapa M.D. On 11-May-2016 09:45 Appointment; Provider: Everton Cummins M.D. On 25-Apr-2016 14:00 Appointment; Provider: Everton Cummins M.D. On 27-Mar-2016 11:00 Interventions Provided Labs/Procedures/Imaging* Comprehensive Metabolic Panel 1212; To be Done: 16 Mar 2016 * MAGNESIUM 1260; To be Done: 16 Mar 2016 * ULTRASOUND LEG VEINS LEFT; To be Done: 16 Mar 2016 * CBC w/ Auto Diff 7150; Done: Mar 16 2016 2:57PM Instructions Name Dates Details Instructions not documented Encounters Appointment; Ty Garrido M.D. Encounter Diagnosis: Problem [...] documented On 04-Nov-2015 14:30 Appointment; Ty Lopes M.D.|Chika|Joaquin,WILLY|Joaquin,WILLY, Encounter Diagnosis: Problem not documented On 04-Oct-2015 [...] documented On 05-Oct-2014 10:00 Appointment; Ty Lopes M.D.|F.A.C.SLala|Joaquin,WILLY|Joaquin,WILLY, Encounter Diagnosis: Problem not documented On 28-Sep-2014 [...] documented On 22-Jul-2014 13:30 Appointment; Christoph Scruggs M.D.|F.A.C.S.|M.D.,FACS|M.D.,FACS, Encounter Diagnosis: Problem not documented On 15-Jul-2014 14:00 Appointment; Christoph Scruggs M.D.|F.A.C.S.|M.D.,FACS|M.D.,FACS, Encounter Diagnosis: Problem not documented On 17-Jun-2014 14:15 Appointment; Christoph Scruggs M.D.|F.A.C.S.|M.DLala,FACS|M.D.,FACS, Encounter Diagnosis: Problem not documented On 25-May-2014 13:45 Appointment; Sherlyn Huerta M.D. Encounter Diagnosis: Problem not documented On 15-May-2014 09:30 Appointment; Ty Lopes M.D.|F.A.C.S.|M.D.,FACS|M.D.,FACS, Encounter Diagnosis: Problem not documented On 13-May-2014 14:45 Appointment; Christoph Scruggs M.D.|F.A.C.S.|M.D.,FACS|M.D.,FACS, Encounter Diagnosis: Problem not documented On 13-May-2014 14:00 Appointment; Christoph Scruggs M.D.|F.A.C.S.|M.D.,FACS|M.D.,FACS, Encounter Diagnosis: Problem not documented On 07-May-2014 11:30 Appointment; Conor Craig M.D. Encounter Diagnosis: Problem not documented On 05-May-2014 09:45 Appointment; Ty Lopes M.D.|F.A.C.S.|M.D.,FACS|M.D.,FACS, Encounter Diagnosis: Problem not documented On 04-May-2014 08:30 Appointment; Christoph Scruggs M.D.|F.A.C.S.|M.D.,FACS|M.D.,FACS, Encounter Diagnosis: Problem not documented On 27-Apr-2014 10:30 Appointment; Sudhir Kirk M.D. Encounter Diagnosis: Problem not documented On 16-Apr-2014 10:30 Appointment; Conor Craig M.D. Encounter Diagnosis: Problem not documented On 16-Apr-2014 08:45 Appointment; Conor Craig M.D. Encounter Diagnosis: Problem not documented On 09-Apr-2014 14:00 Appointment; Melodie Jessica Encounter Diagnosis: Problem not documented On 09-Apr-2014 11:45 Appointment; Christoph Scruggs M.D.|Chika|WILLY Nuñez|Joaquin,WILLY, Encounter Diagnosis: Problem not documented On 09-Apr-2014 11:15"
--- OUTSIDE RECORDS SUMMARY | 2017-04-03 09:57 | XMS REPORT | Summary of Care ---
Author Author Tre Bull M.D. Unknown Address [address] [place] [address] [place] [address] Phone Unavailable Care Team Providers Care Photogrammetric Stereo Compiler Name Role Phone Bk Garrido M.D. Unavailable [...] Rising PSA level (790.93, R97.20) Status: Active Medications Name Dates Details Multiple Vitamins Oral Tablet Active Fish Oil 1000 MG Oral Capsule * Refills: 0 Active Fiber CAPS * Refills: 0 Active Pantoprazole Sodium 40 MG Oral Tablet Delayed Release TAKE 1 TABLET BY MOUTH 30 MINUTES BEFORE BREAKFAST EVERY DAY * Quantity: 30 Refills: 11 Ty Thompson M.D. * Start 18-Oct-2016 Active Tamsulosin HCl - 0.4 [...] Dates Details Fluzone High-Dose SUSP Lot #: [id number] on: 09-Apr-2014 Prevnar 13 Intramuscular Suspension Lot #: [id number] on: 11-May-2016 Fluzone High-Dose 0.5 ML Intramuscular Suspension Prefilled Syringe Lot #: [id number] on: 11-May-2016 Family History Name Dates Details [...] attached to this order: Extra Tube, IRASEMA, NEON GLASS BLOWER Charge WBC 5.0 K/uL Range: 4.5-11.0 RBC [...] attached to this order: Extra Tube, IRASEMA, NEON GLASS BLOWER Charge SODIUM 136 mmol/L Range: 133-144 POTASSIUM 4.1 mmol/L Range: 3.5-5.1 CHLORIDE 102 mmol/L Range: 98-110 CARBON DIOXIDE 30.5 mmol/L Range: 23.0-33.0 ANION GAP 4 mmol/L (Below low threshold) Range: 6-16 BUN 15 mg/dL Range: 7-18 CREATININE, SERUM 1.15 mg/dL Range: 0.70-1.30 BUN:CREATININE RATIO 13 EST GFR, >60 ml/min Range: >60 EST GFR, NON-AFR CO[place] R[place] >60 ml/min Range: >60 Comments: EST GFR [...] attached to this order: Extra Tube, IRASEMA, NEON GLASS BLOWER Charge LIPASE 129 U/L Range: 73-393 10:27 AMYLASE 1250 Comments: Items were attached to this order: Extra Tube, IRASEMA, NEON GLASS BLOWER Charge AMYLASE 52 U/L Range: 25-115 13-Oct-2016 [...] Provider: Ty Thompson M.D. On 07-Nov-2016 08:30 Instructions Name Dates Details Instructions not documented Encounters Appointment; Sudhir Erickson M.D. Encounter Diagnosis: Problem [...] documented On 04-Nov-2015 14:30 Appointment; Ty Lopes M.D.,[facility], Encounter Diagnosis: Problem not documented [...]
--- OUTSIDE RECORDS SUMMARY | 2017-04-03 09:58 | XMS REPORT | Summary of Care ---
Author Author Elier Nuñez, Dior Oliva Organization Unknown Address [address] [place], [place] [id number] Phone Unavailable Care Team Providers Care Buckle Strap Puncher Name Role Phone Bk Garrido M.D. Unavailable [...] extremity, initial encounter (924.5, S80.12XA) Status: Active Leg cramps (729.82, R25.2) Status: Active Medications Name Dates Details Multiple [...] 3 days * Quantity: 30 Refills: 0 Pj Thapa M.D. * Start 08-Feb-2016 Active Losartan Potassium 25 MG Oral Tablet TAKE 1 TABLET DAILY. * Quantity: 30 Refills: 11 Elier Nuñez, Pj Rader * Start 08-Feb-2016 Active Sulfamethoxazole-Trimethoprim 800-160 MG Oral Tablet One tab BID for 2 weeks * Quantity: 28 Refills: 0 Elier Nuñez, Pj Rader * Start 08-Feb-2016 Active Acetaminophen 500 MG Oral Tablet * Refills: 0 eHma NuñezTy Start 15-Feb-2016 Active Allergies and Adverse Reactions [...] Vas Deferens Vasectomy History of Complete Colonoscopy ULTRASOUND LEG VEINS LEFT Ordered: 16-Mar-2016 Immunization Name Dates Details Fluzone High-Dose SUSP Lot #: [id number] on: 09-Apr-2014 Family History Name Dates Details [...] Body Surface Area Calculated 1.92 m2 Status: Results Date Description Value Details [...] Range: 0.0-0.7 BASO 0.0 K/uL Range: 0.0-0.2 15:45 Comprehensive Metabolic Panel 1212 SODIUM 136 mmol/L Range: 133-144 POTASSIUM 4.2 mmol/L Range: 3.5-5.1 CHLORIDE 101 mmol/L Range: 98-110 CARBON DIOXIDE 26.5 mmol/L Range: 23.0-33.0 ANION GAP 9 mmol/L Range: 6-16 BUN 17 mg/dL Range: 7-18 CREATININE, SERUM 1.35 mg/dL (Above high threshold) Range: 0.70-1.30 BUN:CREATININE RATIO 13 EST GFR, >60 ml/min Range: >60 EST GFR, NON-AFR SALVADOREAN 51 ml/min (Below low threshold) Range: >60 Comments: EST GFR is reported in ml/min per 1.73 m2 of body surface area. ----- GLUCOSE 94 mg/dL Range: 70-100 ALK PHOSPHATASE 65 U/L Range: 46-116 TOTAL BILIRUBIN 2.20 mg/dL (Above high threshold) Range: 0.20-1.00 AST 37 U/L (Above high threshold) Range: 8-35 ALT 37 U/L Range: 16-63 ALBUMIN 4.2 g/dL Range: 3.4-5.0 TOTAL PROTEIN 7.6 g/dL Range: 6.4-8.2 A/G RATIO 1.2 units Range: 1.0-1.8 CALCIUM 9.0 mg/dL Range: 8.5-10.1 15:45 MAGNESIUM 1260 MAGNESIUM 2.2 mg/dL Range: 1.8-2.4 Plan of Care Name Dates Details Planned Observations Planned Goals not documented Planned Encounters Appointment; Provider: Ty Lopes M.D.|Indy,WILLY|WILLY Nuñez, On 04-Oct-2016 10:45 Appointment; Provider: David Sultana M.D. On 11-Jul-2016 08:30 Appointment; Provider: Pj Thapa M.D. On 11-May-2016 09:45 Appointment; Provider: Everton Cummins M.D. On 25-Apr-2016 14:00 Appointment; Provider: Everton Cummins M.D. On 27-Mar-2016 11:00 Interventions Provided Labs/Procedures/Imaging* ULTRASOUND LEG VEINS LEFT; To be Done: 16 Mar 2016 * CBC w/ Auto Diff 7150; Done: Mar 16 2016 2:57PM * Comprehensive Metabolic Panel 1212; Done: Mar 16 2016 2:57PM * MAGNESIUM 1260; Done: Mar 16 2016 2:57PM Instructions Name [...] documented On 04-Nov-2015 14:30 Appointment; Ty Lopes M.D.|JennaCJudy|Joaquin,WILLY|Joaquin,WILLY, Encounter Diagnosis: Problem not documented On 04-Oct-2015 [...] documented On 15-Feb-2015 11:45 Appointment; Dinorah Merritt PKam Encounter Diagnosis: Problem not documented On 08:15 [...] documented On 22-Jul-2014 13:30 Appointment; Christoph Scruggs M.D.|F.Dior.C.S.|[place]oaquin,WILLY|Joaquin,WILLY, Encounter Diagnosis: Problem not documented On 15-Jul-2014 14:00 Appointment; Christoph Scruggs M.D.|F.A.C.S.|[place]oaquin,WILLY|Joaquin,WILLY, Encounter Diagnosis: Problem not documented On 17-Jun-2014 14:15 Appointment; Christoph Scruggs M.D.|F.A.C.S.|[place]oaquin,WILLY|Joaquin,WILLY, Encounter Diagnosis: Problem not documented On 25-May-2014 13:45 Appointment; Sherlyn Huerta M.D. Encounter Diagnosis: Problem not documented On 15-May-2014 09:30 Appointment; Ty Lopes M.D.|F.A.C.S.|M.D.,FACS|M.D.,FACS, Encounter Diagnosis: Problem not documented On 13-May-2014 14:45 Appointment; Christoph Scruggs M.D.|F.A.C.S.|M.D.,FACS|MLalaDLala,FACS, Encounter Diagnosis: Problem not documented On 13-May-2014 14:00 Appointment; Christoph Scruggs M.D.|F.A.C.S.|M.D.,FACS|MLalaDLala,FACS, Encounter Diagnosis: Problem not documented On 07-May-2014 11:30 Appointment; Conor Craig M.D. Encounter Diagnosis: Problem not documented On 05-May-2014 09:45 Appointment; Ty Lopes M.D.|F.A.C.S.|M.DLala,FACS|MLalaDLala,FACS, Encounter Diagnosis: Problem not documented On 04-May-2014 [...] documented On 09-Apr-2014 11:45 Appointment; Christoph Scruggs M.D.|F.A.C.S.|M.D.,FACS|MLalaDLala,FACS, Encounter Diagnosis: Problem not documented On 09-Apr-2014 11:15"
--- OUTSIDE RECORDS SUMMARY | 2017-04-03 09:58 | XMS REPORT | Summary of Care ---
Author Author Tre Bull M.D. Unknown Address [address] [place] [address] [place] [address] Phone Unavailable Care Team Providers Care Anthropologist Physical Name Role Phone Bk Garrido M.D. Unavailable [...] Microscopic or Culture PRN [id number] Ordered: 12-Oct-2016 EPIDURAL INJECTION Ordered: 06-Nov-2016 Immunization Name Dates Details Fluzone High-Dose SUSP Lot #: [id number] on: 09-Apr-2014 Prevnar 13 Intramuscular Suspension Lot #: [id number] on: 11-May-2016 Fluzone High-Dose 0.5 ML Intramuscular Suspension Prefilled Syringe Lot #: [id number] on: 11-May-2016 Family History Name Dates Details [...] attached to this order: Extra Tube, IRASEMA, STAND UP COMEDIAN Charge WBC 5.0 K/uL Range: 4.5-11.0 RBC [...] attached to this order: Extra Tube, IRASEMA, STAND UP COMEDIAN Charge SODIUM 136 mmol/L Range: 133-144 POTASSIUM 4.1 mmol/L Range: 3.5-5.1 CHLORIDE 102 mmol/L Range: 98-110 CARBON DIOXIDE 30.5 mmol/L Range: 23.0-33.0 ANION GAP 4 mmol/L (Below low threshold) Range: 6-16 BUN 15 mg/dL Range: 7-18 CREATININE, SERUM 1.15 mg/dL Range: 0.70-1.30 BUN:CREATININE RATIO 13 EST GFR, >60 ml/min Range: >60 EST GFR, NON-AFR BULGARIAN >60 ml/min Range: >60 Comments: EST GFR [...] attached to this order: Extra Tube, IRASEMA, STAND UP COMEDIAN Charge LIPASE 129 U/L Range: 73-393 10:27 AMYLASE 1250 Comments: Items were attached to this order: Extra Tube, IRASEMA, STAND UP COMEDIAN Charge AMYLASE 52 U/L Range: 25-115 13-Oct-2016 [...] documented On 04-Nov-2015 14:30 Appointment; Ty Lopes M.D.,[facility], Encounter Diagnosis: Problem not documented [...] Problem not documented On 31-May-2015 05:45 Appointment; Daivd Sultana M.D. Encounter Diagnosis: Problem not documented [...]
--- OUTSIDE RECORDS SUMMARY | 2017-04-03 09:59 | XMS REPORT | Summary of Care ---
Author Author Irasema Parker APRN Organization Unknown Address [address] [facility] CenterRachael[place] [place], [place] [id number] Phone Unavailable Care Team Providers Care Door To Door Fundraising Collector Name Role Phone Bk Garrido M.D. Unavailable Unavailable Elier Nuñez, Dior Oliva Unavailable Unavailable Tre Bull M.D. Unavailable Unavailable Irasema Parkre APRN Unavailable Unavailable Jay Nuñez, Dior Crawford [...] Dates Details Fluzone High-Dose SUSP Lot #: [id number] on: 09-Apr-2014 Prevnar 13 Intramuscular Suspension Lot #: [id number] on: 11-May-2016 Fluzone High-Dose 0.5 ML Intramuscular Suspension Prefilled Syringe Lot #: [id number] on: 11-May-2016 Family History Name Dates Details [...] attached to this order: Extra Tube, IRASEMA, AUTOMOTIVE BRAKE TECHNICIAN Charge WBC 5.0 K/uL Range: 4.5-11.0 RBC [...] attached to this order: Extra Tube, IRASEMA, AUTOMOTIVE BRAKE TECHNICIAN Charge SODIUM 136 mmol/L Range: 133-144 POTASSIUM 4.1 mmol/L Range: 3.5-5.1 CHLORIDE 102 mmol/L Range: 98-110 CARBON DIOXIDE 30.5 mmol/L Range: 23.0-33.0 ANION GAP 4 mmol/L (Below low threshold) Range: 6-16 BUN 15 mg/dL Range: 7-18 CREATININE, SERUM 1.15 mg/dL Range: 0.70-1.30 BUN:CREATININE RATIO 13 EST GFR, >60 ml/min Range: >60 EST GFR, NON-AFR BELIZEAN >60 ml/min Range: >60 Comments: EST GFR [...] attached to this order: Extra Tube, IRASEMA, AUTOMOTIVE BRAKE TECHNICIAN Charge LIPASE 129 U/L Range: 73-393 10:27 AMYLASE 1250 Comments: Items were attached to this order: Extra Tube, IRASEMA, AUTOMOTIVE BRAKE TECHNICIAN Charge AMYLASE 52 U/L Range: 25-115 13-Oct-2016 [...] M.D. On 26-Oct-2016 09:15 Interventions Provided Labs/Procedures/Imaging* CT AB/ PEL WITHOUT IV CONTRAST (FOR KIDNEY STONE); Done : 13Oct2016 04:31PM Instructions Name Dates Details Instructions not documented [...] Problem not documented On 04-Nov-2015 14:30 Appointment; yT Lopes M.D.,[facility], Encounter Diagnosis: Problem not documented On [...] Problem not documented On 26-May-2015 10:15 Appointment; Sudhri Kirk M.D. Encounter Diagnosis: Problem not documented [...]
[2017-04-03] MEDS ORDERED: LIDOCAINE 2% 20 ML (XYLOCAINE) VIAL INJ STA (10:00)
--- OUTSIDE RECORDS SUMMARY | 2017-04-03 10:00 | XMS REPORT ---
Author Author GENERATED, SYSTEM Organization Unknown Address Unknown Phone Unavailable Care Team Providers Care Spine Specialist Name Role Phone MD LIZETTE, MARY PP Reason For Visit Chief Complaint 01/31/10 S/P L TKA/L KNEE,GAIT INSTABILITY Social History Functional Status Vital Signs Results Blood Gas from 09/11/2015 3:57 PM*ARTERIAL PH 7.451 H (7.350-7.450 ) *ARTERIAL PC02 35.0 MM HG (35.0-45.0 MM HG) *ART. PO2 63 MM HG L (80-95 MM HG) *ART. TOTAL CO2 20.5 mmol/L (20.0-30.0 mmol/L) *ART. BICARBONATE 24.0 MEQ/L (19.0-29.0 MEQ/L) *ART. BASE EXCESS 1.0 (-2.5-2.5 ) ART. O2 SATURATION 92.9 % (91.0-97.0 %) *PATIENT ATMOSPHERE ROOM AIR *SPECIMEN SITE ARTERIAL Chemistry from 09/12/2015 4:41 AMSODIUM 139 MMOL/L (136-145 MMOL/L) POTASSIUM 4.0 MMOL/L (3.5-5.1 MMOL/L) CHLORIDE 104 MMOL/L (98-107 MMOL/L) TCO2 27.1 MMOL/L (21.0-32.0 MMOL/L) *ANION GAP 7.9 MMOL/L L (8.0-16.0 MMOL/L) BUN 15 MG/DL (7-18 MG/DL) CREATININE 1.17 MG/DL (0.70-1.30 MG/DL) *BUN/CREATININE RATIO 12.8 (9.1-17.0 ) GLUCOSE 92 MG/DL (65-99 MG/DL) *GFR EST NON AFR [place] 58 ML/MIN *GFRA EST AFR AMER 67 ML/MIN CALCIUM 8.5 MG/DL (8.5-10.1 MG/DL) BILIRUBIN TOTAL 1.20 MG/DL H (0.20-1.00 MG/DL) TOTAL PROTEIN 6.2 GM/DL L (6.4-8.2 GM/DL) ALBUMIN 3.3 GM/DL L (3.4-5.0 GM/DL) *GLOBULIN 2.9 GM/DL (2.3-3.5 GM/DL) *A/G RATIO 1.1 MG/DL L (1.5-2.2 MG/DL) ALK PHOS 54 U/L (46-116 U/L) ALT (SGPT) 24 U/L (14-59 U/L) AST (SGOT) 19 U/L (15-37 U/L) TROPONIN-I 0.018 NG/ML (0.000-0.056 NG/ML) TSH 2.233 UIU/ML (0.340-4.820 UIU/ML) Chemistry from 09/11/2015 7:59 PMTROPONIN-I <0.017 NG/ML (0.000-0.056 NG/ML) Chemistry from 09/11/2015 2:40 PMSODIUM 138 MMOL/L (136-145 MMOL/L) POTASSIUM 4.1 MMOL/L (3.5-5.1 MMOL/L) CHLORIDE 102 MMOL/L (98-107 MMOL/L) TCO2 29.6 MMOL/L (21.0-32.0 MMOL/L) *ANION GAP 6.4 MMOL/L L (8.0-16.0 MMOL/L) BUN 15 MG/DL (7-18 MG/DL) CREATININE 1.33 MG/DL H (0.70-1.30 MG/DL) *BUN/CREATININE RATIO 11.3 (9.1-17.0 ) GLUCOSE 103 MG/DL H (65-99 MG/DL) *GFR EST NON AFR [place] 50 ML/MIN *GFRA EST AFR AMER 58 ML/MIN CALCIUM 9.0 MG/DL (8.5-10.1 MG/DL) BILIRUBIN TOTAL 1.30 MG/DL H (0.20-1.00 MG/DL) BILIRUBIN TOTAL 1.40 MG/DL H (0.20-1.00 MG/DL) BILIRUBIN DIRECT 0.30 MG/DL (0.00-0.30 MG/DL) TOTAL PROTEIN 7.3 GM/DL (6.4-8.2 GM/DL) TOTAL PROTEIN 7.2 GM/DL (6.4-8.2 GM/DL) ALBUMIN 3.9 GM/DL (3.4-5.0 GM/DL) ALBUMIN 3.9 GM/DL (3.4-5.0 GM/DL) *GLOBULIN 3.4 GM/DL (2.3-3.5 GM/DL) *A/G RATIO 1.1 MG/DL L (1.5-2.2 MG/DL) ALK PHOS 65 U/L (46-116 U/L) ALK PHOS 66 U/L (46-116 U/L) ALT (SGPT) 29 U/L (14-59 U/L) ALT (SGPT) 29 U/L (14-59 U/L) AST (SGOT) 25 U/L (15-37 U/L) AST (SGOT) 24 U/L (15-37 U/L) MAGNESIUM 2.3 MG/DL (1.8-2.4 MG/DL) PHOSPHORUS 3.3 MG/DL (2.6-4.7 MG/DL) TROPONIN-I <0.017 NG/ML (0.000-0.056 NG/ML) B-TYPE NATRIURETIC PROTEIN 346 PG/ML H (1-100 PG/ML) Chemistry from 04/30/2014 6:03 AMSODIUM 136 MMOL/L (136-145 MMOL/L) POTASSIUM 3.6 MMOL/L (3.5-5.1 MMOL/L) CHLORIDE 102 MMOL/L (98-107 MMOL/L) TCO2 29.6 MMOL/L (21.0-32.0 MMOL/L) ANION GAP 4.4 MMOL/L L (8.0-16.0 MMOL/L) BUN 8 MG/DL (7-18 MG/DL) CREATININE 0.85 MG/DL (0.63-1.13 MG/DL) BUN/CREATININE RATIO 9.4 (9.1-17.0 ) GLUCOSE 113 MG/DL H (65-99 MG/DL) GFR EST NON AFR [place] 82 ML/MIN GFRA EST AFR AMER >90 ML/MIN CALCIUM 8.5 MG/DL (8.5-10.1 MG/DL) MAGNESIUM 2.1 MG/DL (1.8-2.4 MG/DL) PHOSPHORUS 2.3 MG/DL L (2.5-4.9 MG/DL) Chemistry from 04/29/2014 5:43 AMSODIUM 135 MMOL/L L (136-145 MMOL/L) POTASSIUM 4.0 MMOL/L (3.5-5.1 MMOL/L) CHLORIDE 100 MMOL/L (98-107 MMOL/L) TCO2 29.7 MMOL/L (21.0-32.0 MMOL/L) ANION GAP 5.3 MMOL/L L (8.0-16.0 MMOL/L) BUN 8 MG/DL (7-18 MG/DL) CREATININE 1.00 MG/DL (0.63-1.13 MG/DL) BUN/CREATININE RATIO 8.0 L (9.1-17.0 ) GLUCOSE 189 MG/DL H (65-99 MG/DL) GFR EST NON AFR [place] 71 ML/MIN GFRA EST AFR AMER 82 ML/MIN CALCIUM 8.8 MG/DL (8.5-10.1 MG/DL) Chemistry from 01/21/2014 5:43 AMSODIUM 138 MMOL/L (136-145 MMOL/L) POTASSIUM 3.6 MMOL/L (3.5-5.1 MMOL/L) CHLORIDE 104 MMOL/L (98-107 MMOL/L) TCO2 30.8 MMOL/L (21.0-32.0 MMOL/L) ANION GAP 3.2 MMOL/L L (8.0-16.0 MMOL/L) BUN 11 MG/DL (7-18 MG/DL) CREATININE 1.00 MG/DL (0.63-1.13 MG/DL) BUN/CREATININE RATIO 11.0 (9.1-17.0 ) GLUCOSE 128 MG/DL H (65-99 MG/DL) GFR EST NON AFR [place] 71 ML/MIN GFRA EST AFR AMER 82 ML/MIN CALCIUM 8.4 MG/DL L (8.5-10.1 MG/DL) Chemistry from 12/19/2013 4:40 AMSODIUM 141 MMOL/L (136-145 MMOL/L) POTASSIUM 3.5 MMOL/L (3.5-5.1 MMOL/L) CHLORIDE 104 MMOL/L (98-107 MMOL/L) TCO2 28.7 MMOL/L (21.0-32.0 MMOL/L) ANION GAP 8.3 MMOL/L (8.0-16.0 MMOL/L) BUN 6 MG/DL L (7-18 MG/DL) CREATININE 0.97 MG/DL (0.63-1.13 MG/DL) BUN/CREATININE RATIO 6.2 L (9.1-17.0 ) GLUCOSE 119 MG/DL H (65-99 MG/DL) GFR EST NON AFR [place] 74 ML/MIN GFRA EST AFR AMER 86 ML/MIN CALCIUM 8.6 MG/DL (8.5-10.1 MG/DL) Chemistry from 12/18/2013 4:50 AMSODIUM 141 MMOL/L (136-145 MMOL/L) POTASSIUM 3.9 MMOL/L (3.5-5.1 MMOL/L) CHLORIDE 105 MMOL/L (98-107 MMOL/L) TCO2 28.8 MMOL/L (21.0-32.0 MMOL/L) ANION GAP 7.2 MMOL/L L (8.0-16.0 MMOL/L) BUN 10 MG/DL (7-18 MG/DL) CREATININE 0.99 MG/DL (0.63-1.13 MG/DL) BUN/CREATININE RATIO 10.1 (9.1-17.0 ) GLUCOSE 119 MG/DL H (65-99 MG/DL) GFR EST NON AFR [place] 72 ML/MIN GFRA EST AFR AMER 83 ML/MIN CALCIUM 8.3 MG/DL L (8.5-10.1 MG/DL) BILIRUBIN TOTAL 1.78 MG/DL H (0.20-1.00 MG/DL) TOTAL PROTEIN 6.2 GM/DL L (6.4-8.2 GM/DL) ALBUMIN 3.2 GM/DL L (3.4-5.0 GM/DL) GLOBULIN 3.0 GM/DL (2.3-3.5 GM/DL) A/G RATIO 1.1 MG/DL L (1.5-2.2 MG/DL) ALK PHOS 56 U/L (46-116 U/L) ALT (SGPT) 24 U/L (12-78 U/L) AST (SGOT) 15 U/L (15-37 U/L) MAGNESIUM 2.0 MG/DL (1.8-2.4 MG/DL) PHOSPHORUS 2.4 MG/DL L (2.5-4.9 MG/DL) TSH 1.05 UIU/ML (0.34-4.82 UIU/ML) LACTIC ACID 0.80 MMOL/L (0.40-2.00 MMOL/L) Chemistry from 12/17/2013 4:51 AMSODIUM 135 MMOL/L L (136-145 MMOL/L) POTASSIUM 4.2 MMOL/L (3.5-5.1 MMOL/L) CHLORIDE 101 MMOL/L (98-107 MMOL/L) TCO2 29.3 MMOL/L (21.0-32.0 MMOL/L) ANION GAP 4.7 MMOL/L L (8.0-16.0 MMOL/L) BUN 16 MG/DL (7-18 MG/DL) CREATININE 1.08 MG/DL (0.63-1.13 MG/DL) BUN/CREATININE RATIO 14.8 (9.1-17.0 ) GLUCOSE 130 MG/DL H (65-99 MG/DL) GFR EST NON AFR [place] 65 ML/MIN GFRA EST AFR AMER 75 ML/MIN CALCIUM 9.1 MG/DL (8.5-10.1 MG/DL) BILIRUBIN TOTAL 1.91 MG/DL H (0.20-1.00 MG/DL) TOTAL PROTEIN 7.3 GM/DL (6.4-8.2 GM/DL) ALBUMIN 3.9 GM/DL (3.4-5.0 GM/DL) GLOBULIN 3.4 GM/DL (2.3-3.5 GM/DL) A/G RATIO 1.1 MG/DL L (1.5-2.2 MG/DL) ALK PHOS 71 U/L (46-116 U/L) ALT (SGPT) 28 U/L (12-78 U/L) AST (SGOT) 21 U/L (15-37 U/L) LACTIC ACID 1.30 MMOL/L (0.40-2.00 MMOL/L) Chemistry from 12/16/2013 7:38 PMSODIUM 137 MMOL/L (136-145 MMOL/L) POTASSIUM 4.1 MMOL/L (3.5-5.1 MMOL/L) CHLORIDE 101 MMOL/L (98-107 MMOL/L) TCO2 27.4 MMOL/L (21.0-32.0 MMOL/L) ANION GAP 8.6 MMOL/L (8.0-16.0 MMOL/L) BUN 19 MG/DL H (7-18 MG/DL) CREATININE 1.16 MG/DL H (0.63-1.13 MG/DL) BUN/CREATININE RATIO 16.4 (9.1-17.0 ) GLUCOSE 140 MG/DL H (65-99 MG/DL) GFR EST NON AFR [place] 59 ML/MIN GFRA EST AFR AMER 69 ML/MIN CALCIUM 9.7 MG/DL (8.5-10.1 MG/DL) BILIRUBIN TOTAL 1.68 MG/DL H (0.20-1.00 MG/DL) TOTAL PROTEIN 8.1 GM/DL (6.4-8.2 GM/DL) ALBUMIN 4.5 GM/DL (3.4-5.0 GM/DL) GLOBULIN 3.6 GM/DL H (2.3-3.5 GM/DL) A/G RATIO 1.3 MG/DL L (1.5-2.2 MG/DL) ALK PHOS 80 U/L (46-116 U/L) ALT (SGPT) 30 U/L (12-78 U/L) AST (SGOT) 23 U/L (15-37 U/L) LIPASE 120 U/L (73-393 U/L) TROPONIN-I <0.04 (SEE BELOW ) CKMB 3.6 NG/ML (0.0-3.6 NG/ML) Chemistry from 04/06/2012 7:47 PMSODIUM 135 MMOL/L L (136-145 MMOL/L) POTASSIUM 3.8 MMOL/L (3.5-5.1 MMOL/L) CHLORIDE 102 MMOL/L (98-107 MMOL/L) TCO2 30.1 MMOL/L (21.0-32.0 MMOL/L) ANION GAP 2.9 MMOL/L L (8.0-16.0 MMOL/L) BUN 18 MG/DL (7-18 MG/DL) CREATININE 1.32 MG/DL H (0.63-1.13 MG/DL) BUN/CREATININE RATIO 13.6 (9.1-17.0 ) GLUCOSE 125 MG/DL H (74-106 MG/DL) GFR EST NON AFR [place] 53 ML/MIN GFRA EST AFR AMER >60 ML/MIN CALCIUM 9.1 MG/DL (8.5-10.1 MG/DL) Chemistry from 03/20/2012 1:55 PMSODIUM 136 MMOL/L (136-145 MMOL/L) POTASSIUM 3.8 MMOL/L (3.5-5.1 MMOL/L) CHLORIDE 102 MMOL/L (98-107 MMOL/L) TCO2 25.3 MMOL/L (21.0-32.0 MMOL/L) ANION GAP 8.7 MMOL/L (8.0-16.0 MMOL/L) BUN 21 MG/DL H (7-18 MG/DL) CREATININE 1.10 MG/DL (0.63-1.13 MG/DL) BUN/CREATININE RATIO 19.1 H (9.1-17.0 ) GLUCOSE 123 MG/DL H (74-106 MG/DL) GFR EST NON AFR [place] >60 ML/MIN GFRA EST AFR AMER >60 ML/MIN CALCIUM 9.1 MG/DL (8.5-10.1 MG/DL) BILIRUBIN TOTAL 1.58 MG/DL H (0.20-1.00 MG/DL) TOTAL PROTEIN 7.7 GM/DL (6.4-8.2 GM/DL) ALBUMIN 4.2 GM/DL (3.4-5.0 GM/DL) GLOBULIN 3.5 GM/DL (2.3-3.5 GM/DL) A/G RATIO 1.2 MG/DL L (1.5-2.2 MG/DL) ALK PHOS 80 U/L (50-136 U/L) ALT (SGPT) 28 U/L L (30-65 U/L) AST (SGOT) 24 U/L (15-37 U/L) Hematology from 09/11/2015 7:59 PMWBC 4.6 X10e3/UL (3.6-11.2 X10e3/UL) RBC 4.59 X10e6/UL (4.06-5.63 X10e6/UL) HEMOGLOBIN 15.3 G/DL (12.5-16.3 G/DL) HEMATOCRIT 45.3 % (36.7-47.1 %) *MCV 98.7 FL (80.0-100.0 FL) *MCH 33.4 PG H (27.0-33.0 PG) *MCHC 33.8 G/DL (32.0-36.0 G/DL) *RDW 13.6 % (12.3-17.0 %) *RDWSD 46.4 (37.1-47.8 ) PLATELET 203 X10e3/UL (159-386 X10e3/UL) *MPV 6.9 FL L (7.4-10.4 FL) Hematology from 09/11/2015 2:40 PMWBC 5.5 X10e3/UL (3.6-11.2 X10e3/UL) RBC 4.76 X10e6/UL (4.06-5.63 X10e6/UL) HEMOGLOBIN 16.0 G/DL (12.5-16.3 G/DL) HEMATOCRIT 46.9 % (36.7-47.1 %) *MCV 98.7 FL (80.0-100.0 FL) *MCH 33.7 PG H (27.0-33.0 PG) *MCHC 34.2 G/DL (32.0-36.0 G/DL) *RDW 13.4 % (12.3-17.0 %) *RDWSD 45.9 (37.1-47.8 ) PLATELET 219 X10e3/UL (159-386 X10e3/UL) *MPV 7.6 FL (7.4-10.4 FL) AUTOMATED DIFF PERFORMED SEGS 47.9 % *LYMPHOCYTES 36.3 % *MONOCYTES 10.7 % *EOSINOPHILS 4.2 % *BASOPHILS 0.9 % *ABSOLUTE NEUTROPHILS 2.60 X10e3/UL (1.80-7.80 X10e3/UL) *ABSOLUTE LYMPHOCYTES 2.00 X10e3/UL (1.00-3.00 X10e3/UL) *ABSOLUTE MONOCYTES 0.60 X10e3/UL (0.30-1.00 X10e3/UL) *ABSOLUTE EOSINOPHILS 0.20 X10e3/UL (0.00-0.50 X10e3/UL) *ABSOLUTE BASOPHILS 0.00 X10e3/UL (0.00-0.20 X10e3/UL) Hematology from 04/30/2014 6:03 AMWBC 6.6 X10e3/UL (3.6-11.2 X10e3/UL) RBC 4.24 X10e6/UL (4.06-5.63 X10e6/UL) HEMOGLOBIN 14.4 G/DL (12.5-16.3 G/DL) HEMATOCRIT 41.4 % (36.7-47.1 %) MCV 97.6 FL (80.0-100.0 FL) MCH 33.9 PG H (27.0-33.0 PG) MCHC 34.7 G/DL (32.0-36.0 G/DL) RDW 13.1 % (12.3-17.0 %) RDWSD 44.2 (37.1-47.8 ) PLATELET 171 X10e3/UL (159-386 X10e3/UL) MPV 7.1 FL L (7.4-10.4 FL) AUTOMATED DIFF PERFORMED SEGS 65.1 % LYMPHOCYTES 19.6 % MONOCYTES 9.6 % EOSINOPHILS 5.1 % BASOPHILS 0.6 % ABSOLUTE NEUTROPHILS 4.3 X10e3/UL (1.8-7.8 X10e3/UL) ABSOLUTE LYMPHOCYTES 1.3 X10e3/UL (1.0-3.0 X10e3/UL) ABSOLUTE MONOCYTES 0.6 X10e3/UL (0.3-1.0 X10e3/UL) ABSOLUTE EOSINOPHILS 0.3 X10e3/UL (0.0-0.5 X10e3/UL) ABSOLUTE BASOPHILS 0.0 X10e3/UL (0.0-0.2 X10e3/UL) Hematology from 04/29/2014 5:43 AMWBC 9.8 X10e3/UL (3.6-11.2 X10e3/UL) RBC 4.61 X10e6/UL (4.06-5.63 X10e6/UL) HEMOGLOBIN 15.4 G/DL (12.5-16.3 G/DL) HEMATOCRIT 45.3 % (36.7-47.1 %) MCV 98.3 FL (80.0-100.0 FL) MCH 33.4 PG H (27.0-33.0 PG) MCHC 33.9 G/DL (32.0-36.0 G/DL) RDW 13.2 % (12.3-17.0 %) RDWSD 45.1 (37.1-47.8 ) PLATELET 207 X10e3/UL (159-386 X10e3/UL) MPV 7.0 FL L (7.4-10.4 FL) AUTOMATED DIFF PERFORMED SEGS 78.5 % LYMPHOCYTES 10.0 % MONOCYTES 8.3 % EOSINOPHILS 2.6 % BASOPHILS 0.6 % ABSOLUTE NEUTROPHILS 7.6 X10e3/UL (1.8-7.8 X10e3/UL) ABSOLUTE LYMPHOCYTES 1.0 X10e3/UL (1.0-3.0 X10e3/UL) ABSOLUTE MONOCYTES 0.8 X10e3/UL (0.3-1.0 X10e3/UL) ABSOLUTE EOSINOPHILS 0.3 X10e3/UL (0.0-0.5 X10e3/UL) ABSOLUTE BASOPHILS 0.1 X10e3/UL (0.0-0.2 X10e3/UL) Hematology from 01/21/2014 5:43 AMWBC 8.6 X10e3/UL (3.6-11.2 X10e3/UL) RBC 4.33 X10e6/UL (4.06-5.63 X10e6/UL) HEMOGLOBIN 14.8 G/DL (12.5-16.3 G/DL) HEMATOCRIT 42.6 % (36.7-47.1 %) MCV 98.3 FL (80.0-100.0 FL) MCH 34.1 PG H (27.0-33.0 PG) MCHC 34.7 G/DL (32.0-36.0 G/DL) RDW 13.7 % (12.3-17.0 %) RDWSD 47.3 (37.1-47.8 ) PLATELET 178 X10e3/UL (159-386 X10e3/UL) MPV 6.6 FL L (7.4-10.4 FL) Hematology from 12/19/2013 4:40 AMWBC 6.1 X10e3/UL (3.6-11.2 X10e3/UL) RBC 4.31 X10e6/UL (4.06-5.63 X10e6/UL) HEMOGLOBIN 14.6 G/DL (12.5-16.3 G/DL) HEMATOCRIT 42.2 % (36.7-47.1 %) MCV 97.9 FL (80.0-100.0 FL) MCH 33.8 PG H (27.0-33.0 PG) MCHC 34.5 G/DL (32.0-36.0 G/DL) RDW 13.4 % (12.3-17.0 %) RDWSD 45.9 (37.1-47.8 ) PLATELET 177 X10e3/UL (159-386 X10e3/UL) MPV 6.9 FL L (7.4-10.4 FL) Hematology from 12/18/2013 4:50 AMWBC 6.0 X10e3/UL (3.6-11.2 X10e3/UL) RBC 4.45 X10e6/UL (4.06-5.63 X10e6/UL) HEMOGLOBIN 14.9 G/DL (12.5-16.3 G/DL) HEMATOCRIT 43.5 % (36.7-47.1 %) MCV 97.7 FL (80.0-100.0 FL) MCH 33.4 PG H (27.0-33.0 PG) MCHC 34.2 G/DL (32.0-36.0 G/DL) RDW 13.3 % (12.3-17.0 %) RDWSD 45.1 (37.1-47.8 ) PLATELET 193 X10e3/UL (159-386 X10e3/UL) MPV 6.7 FL L (7.4-10.4 FL) AUTOMATED DIFF PERFORMED SEGS 59.7 % LYMPHOCYTES 23.9 % MONOCYTES 10.3 % EOSINOPHILS 5.0 % BASOPHILS 1.1 % ABSOLUTE NEUTROPHILS 3.6 X10e3/UL (1.8-7.8 X10e3/UL) ABSOLUTE LYMPHOCYTES 1.4 X10e3/UL (1.0-3.0 X10e3/UL) ABSOLUTE MONOCYTES 0.6 X10e3/UL (0.3-1.0 X10e3/UL) ABSOLUTE EOSINOPHILS 0.3 X10e3/UL (0.0-0.5 X10e3/UL) ABSOLUTE BASOPHILS 0.1 X10e3/UL (0.0-0.2 X10e3/UL) Hematology from 12/17/2013 4:51 AMWBC 10.4 X10e3/UL (3.6-11.2 X10e3/UL) RBC 4.84 X10e6/UL (4.06-5.63 X10e6/UL) HEMOGLOBIN 16.3 G/DL (12.5-16.3 G/DL) HEMATOCRIT 47.3 % H (36.7-47.1 %) MCV 97.8 FL (80.0-100.0 FL) MCH 33.7 PG H (27.0-33.0 PG) MCHC 34.4 G/DL (32.0-36.0 G/DL) RDW 13.6 % (12.3-17.0 %) RDWSD 46.4 (37.1-47.8 ) PLATELET 229 X10e3/UL (159-386 X10e3/UL) MPV 7.1 FL L (7.4-10.4 FL) Hematology from 12/16/2013 7:38 PMWBC 14.4 X10e3/UL H (3.6-11.2 X10e3/UL) RBC 5.12 X10e6/UL (4.06-5.63 X10e6/UL) HEMOGLOBIN 16.9 G/DL H (12.5-16.3 G/DL) HEMATOCRIT 49.6 % H (36.7-47.1 %) MCV 97.0 FL (80.0-100.0 FL) MCH 33.1 PG H (27.0-33.0 PG) MCHC 34.1 G/DL (32.0-36.0 G/DL) RDW 13.5 % (12.3-17.0 %) RDWSD 45.5 (37.1-47.8 ) PLATELET 238 X10e3/UL (159-386 X10e3/UL) MPV 7.1 FL L (7.4-10.4 FL) AUTOMATED DIFF PERFORMED SEGS 74.4 % LYMPHOCYTES 18.2 % MONOCYTES 5.7 % EOSINOPHILS 0.9 % BASOPHILS 0.8 % ABSOLUTE NEUTROPHILS 10.7 X10e3/UL H (1.8-7.8 X10e3/UL) ABSOLUTE LYMPHOCYTES 2.6 X10e3/UL (1.0-3.0 X10e3/UL) ABSOLUTE MONOCYTES 0.8 X10e3/UL (0.3-1.0 X10e3/UL) ABSOLUTE EOSINOPHILS 0.1 X10e3/UL (0.0-0.5 X10e3/UL) ABSOLUTE BASOPHILS 0.1 X10e3/UL (0.0-0.2 X10e3/UL) Hematology from 04/06/2012 7:47 PMWBC 10.3 X10e3/UL (3.6-11.2 X10e3/UL) RBC 4.46 X10e6/UL (4.06-5.63 X10e6/UL) HEMOGLOBIN 15.3 G/DL (12.5-16.3 G/DL) HEMATOCRIT 44.3 % (36.7-47.1 %) MCV 99.4 FL (80.0-100.0 FL) MCH 34.4 PG H (27.0-33.0 PG) MCHC 34.6 G/DL (32.0-36.0 G/DL) RDW 13.4 % (12.3-17.0 %) RDWSD 45.5 (37.1-47.8 ) PLATELET 189 X10e3/UL (159-386 X10e3/UL) MPV 7.1 FL L (7.4-10.4 FL) AUTOMATED DIFF PERFORMED SEGS 87.0 % H (43.0-80.0 %) LYMPHOCYTES 7.3 % L (13.0-43.0 %) MONOCYTES 4.7 % (4.0-12.0 %) EOSINOPHILS 0.7 % (0.0-7.0 %) BASOPHILS 0.3 % (0.0-2.0 %) ABSOLUTE NEUTROPHILS 9.0 X10e3/UL H (1.8-7.8 X10e3/UL) ABSOLUTE LYMPHOCYTES 0.8 X10e3/UL L (1.0-3.0 X10e3/UL) ABSOLUTE MONOCYTES 0.5 X10e3/UL (0.3-1.0 X10e3/UL) ABSOLUTE EOSINOPHILS 0.1 X10e3/UL (0.0-0.5 X10e3/UL) ABSOLUTE BASOPHILS 0.0 X10e3/UL (0.0-0.2 X10e3/UL) Hematology from 03/20/2012 1:55 PMWBC 7.5 X10e3/UL (3.6-11.2 X10e3/UL) RBC 4.53 X10e6/UL (4.06-5.63 X10e6/UL) HEMOGLOBIN 15.7 G/DL (12.5-16.3 G/DL) HEMATOCRIT 44.7 % (36.7-47.1 %) MCV 98.6 FL (80.0-100.0 FL) MCH 34.5 PG H (27.0-33.0 PG) MCHC 35.0 G/DL (32.0-36.0 G/DL) RDW 13.2 % (12.3-17.0 %) RDWSD 44.6 (37.1-47.8 ) PLATELET 228 X10e3/UL (159-386 X10e3/UL) MPV 7.0 FL L (7.4-10.4 FL) AUTOMATED DIFF PERFORMED SEGS 34.4 % L (43.0-80.0 %) LYMPHOCYTES 51.9 % H (13.0-43.0 %) MONOCYTES 8.0 % (4.0-12.0 %) EOSINOPHILS 4.9 % (0.0-7.0 %) BASOPHILS 0.8 % (0.0-2.0 %) ABSOLUTE NEUTROPHILS 2.6 X10e3/UL (1.8-7.8 X10e3/UL) ABSOLUTE LYMPHOCYTES 3.9 X10e3/UL H (1.0-3.0 X10e3/UL) ABSOLUTE MONOCYTES 0.6 X10e3/UL (0.3-1.0 X10e3/UL) ABSOLUTE EOSINOPHILS 0.4 X10e3/UL (0.0-0.5 X10e3/UL) ABSOLUTE BASOPHILS 0.1 X10e3/UL (0.0-0.2 X10e3/UL) Urinalysis from 09/11/2015 6:57 PM* Status: Final Result URINALYSIS Specimen Number: [id number] Sample Collection Date/Time: 09/11/2015 6:57 PM Specimen Source: *URINE COLOR STRAW (STRAW/YELL/DK YELL ) *URINE APPEARANCE CLEAR (CLEAR ) URINE PH 7.5 (5.0-8.0 ) URINE SPECIFIC GRAVITY 1.015 (<=1.005->=1.030 ) *URINE GLUCOSE NEGATIVE MG/DL (NEGATIVE MG/DL) *URINE BILIRUBIN NEGATIVE (NEGATIVE ) *URINE KETONES NEGATIVE MG/DL (NEGATIVE MG/DL) *URINE BLOOD NEGATIVE (NEGATIVE ) *URINE PROTEIN NEGATIVE MG/DL (NEGATIVE MG/DL) *URINE UROBILINOGEN 0.2 EU/DL (0.2-1.0 EU/DL) *URINE NITRITES NEGATIVE (NEGATIVE ) *URINE LEUKOCYTES NEGATIVE (NEGATIVE ) Urinalysis from 12/17/2013 1:30 PMURINE COLOR YELLOW (STRAW/YELL/DK YELL ) URINE APPEARANCE CLEAR (CLEAR ) URINE PH 6.0 (5.0-8.0 ) URINE SPECIFIC GRAVITY 1.020 (<=1.005->=1.030 ) URINE GLUCOSE NEGATIVE MG/DL (NEGATIVE MG/DL) URINE BILIRUBIN NEGATIVE (NEGATIVE ) URINE KETONES NEGATIVE MG/DL (NEGATIVE MG/DL) URINE BLOOD Trace-Intact A (NEGATIVE ) URINE PROTEIN NEGATIVE MG/DL (NEGATIVE MG/DL) URINE UROBILINOGEN 0.2 EU/DL (0.2-1.0 EU/DL) URINE NITRITES NEGATIVE (NEGATIVE ) *URINE LEUKOCYTES NEGATIVE (NEGATIVE ) MICROSCOPIC EXAM PERFORMED PERFORMED WBC 0-1 /HPF (0-5 /HPF) RBC 0-1 /HPF (0-1 /HPF) SQUAMOUS EP. CELLS FEW /LPF (NEG-FEW /LPF) MUCOUS THREADS FEW /LPF A (NEGATIVE /LPF) Coagulation from 09/11/2015 7:59 PMPARTIAL THROMBOPLASTIN TIME 26.4 SECONDS (23.0 -31.0 SECONDS) Coagulation from 09/11/2015 2:40 PM*PROTHROMBIN TIME 10.9 SECONDS (9.4-11.5 SECONDS) *INR 1.0 (0.9-1.1 ) D-DIMER 0.45 MG/L FEU (0.00-0.50 MG/L FEU) Coagulation from 03/20/2012 1:55 PMPROTHROMBIN TIME 10.4 SECONDS (9.4-11.5 SECONDS) INR 1.0 PARTIAL THROMBOPLASTIN TIME 22.9 SECONDS (22.0-28.0 SECONDS) Microbiology from 09/11/2015 6:57 PM* MRSA NASAL Specimen Number: [id number] Sample Collection Date/Time: 09/11/2015 6:57 PM Specimen Source: Nares MRSA NASAL: Negative- No MRSA detected Body Fluids from 12/17/2013 5:58 AMFECAL OCCULT BLOOD 1 (Hemoccult) NEGATIVE ( NEGATIVE ) Blood Bank from 03/20/2012 2:20 PMANTIBODY SCREEN NEG ABO GROUP O RH TYPE NEG Pathology from 09/23/2014 12:00 AMPATH SOURCE 1. SKIN BX-ROUTINE, BACK OF LT EAR 2. SKIN BX-ROUTINE, LT EAR, ADDITIONAL 3:00 TO 6:00 FINAL DIAGNOSIS 1. SKIN, EXCISION (BACK OF LEFT EAR): SCLEROSING BASAL CELL CARCINOMA, INITIAL INVOLVEMENT OF 4:00 TO 5:00 MARGIN, REMAINING MARGINS CLEAR. 2. SKIN, RE-EXCISION (3:00 TO 6:00 MARGIN): ALL FINAL MARGINS FREE OF NEOPLASM. (CLN) SIGNATURE BALJIT PINON M.D. , PATHOLOGIST (CASE SIGNED 09/24/2014 AT 11:08) FROZEN SECTION 1. SCLEROSING BASAL CELL CARCINOMA, FOCAL INVOLVEMENT OF THE 4:00 TO 5:00 MARGIN, REMAINING MARGINS CLEAR. BALJIT PINON M.D. , PATHOLOGIST (FROZEN SECTION SIGNED 09/24/2014 AT 11:08) REPORTED: 2014-09-24 AT 1121 GROSS EXAMINATION: 1. SUBMITTED FRESH LABELED "BACK OF LEFT EAR" IS AN ELLIPSE OF SKIN MEASURING 2 X 1.5 X 0.5 CM. THE 12:00 POSITION IS MARKED. THE 12:00 THROUGH 3:00 THROUGH 6:00 MARGINS ARE SUBMITTED FOR FROZEN SECTION "FSA", 6:00 THROUGH 9:00 THROUGH 12:00 "FSB", DEEP MARGINS "FSC". THE REMAINING 12:00 PORTION OF THE SPECIMEN IS SUBMITTED IN "D", 6:00 PORTION IN "E". 2. SUBMITTED IN FORMALIN LABELED "LEFT EAR 3:00 TO 6:00" IS AN ADDITIONAL ELLIPSE OF SKIN MEASURING 2 X 0.5 CM. RESECTION MARGINS ARE INKED. IT IS SECTIONED AND TOTALLY SUBMITTED. (RD/CLN) MICROSCOPIC EXAMINATION: 1. FROZEN AND PERMANENT SECTIONS OF SKIN FROM LEFT EAR REVEAL A SCLEROSING BASAL CELL CARCINOMA ARISING OFF THE EPIDERMIS AND EXTENDING INTO THE UNDERLYING DERMAL TISSUE. THERE IS INITIAL INVOLVEMENT OF THE 4:00 TO 5:00 SIDE MARGIN. THE REMAINING MARGINS ARE FREE OF NEOPLASM. 2. RE-EXCISION OF THE 3:00 TO 6:00 MARGINS REVEAL ALL FINAL MARGINS FREE OF NEOPLASM. PHYSICIANS LULU SPAULDING/[phone] CHARGE CODE CPT COUNT [id number] 1 [facility]2014 [facility], VENTRAL & UMBILICUS FINAL DIAGNOSIS SOFT TISSUE, VENTRAL, HERNIORRHAPHY: BENIGN SKIN AND HERNIA SAC. (CLN) SIGNATURE MARIXA ENRIQUEZ M.D. , PATHOLOGIST (CASE SIGNED 04/29/2014 AT 11:54) GROSS EXAMINATION: 1. SUBMITTED IN FORMALIN LABELED "HERNIA SAC AND UMBILICUS" IS A SEGMENT OF SKIN WITH CENTRAL UMBILICUS, THIS MEASURES 7 X 2 X 2 CM. ALSO PRESENT ARE MULTIPLE COLLECTIONS OF SOFT TISSUE AVERAGING 16 CM IN AGGREGATE DIMENSION. CLAY PRESS OPERATOR SECTIONS ARE SUBMITTED. (RS/JOHN) MICROSCOPIC EXAMINATION: SECTIONS SHOW BENIGN SKIN AND SOFT TISSUE WITH PATCHY CHRONIC INFLAMMATION. THERE IS NO EVIDENCE OF MALIGNANCY. PHYSICIANS JUNO VARGAS/[phone] CHARGE CODE CPT COUNT [id number] Pathology from 01/20/2014 12:00 [facility] SOURCE 1. APPENDIX 2. GALLBLADDER-ROUTINE FINAL DIAGNOSIS 1. APPENDIX (APPENDECTOMY): FIBROSIS OF DISTAL APPENDIX. 2. GALLBLADDER (EXCISION): CHOLELITHIASIS WITH CHRONIC CHOLECYSTITIS. (JOHN) SIGNATURE BALJIT PINON M.D. , PATHOLOGIST (CASE SIGNED 01/21/2014 AT 09:07) GROSS EXAMINATION: 1. SUBMITTED IN FORMALIN LABELED "APPENDIX" IS AN APPENDIX MEASURING 5 X 0.5 CM. SEROSAL SURFACE IS GUAMAN WITHOUT EXUDATE. CUT SECTION SHOWS NO HEMORRHAGE. CLAY PRESS OPERATOR SECTIONS ARE SUBMITTED. 2. SUBMITTED IN FORMALIN LABELED "GALLBLADDER" IS A PREVIOUSLY OPENED GALLBLADDER MEASURING 8 X 5 X 3 CM. THE WALL AVERAGES 0.3 CM IN THICKNESS. THE MUCOSA IS DARK GREEN AND SMOOTH. THE LUMEN CONTAINS A BILE STONE MEASURING 2.4 CM IN DIAMETER. CLAY PRESS OPERATOR SECTIONS ARE SUBMITTED. (RD/CLN) MICROSCOPIC EXAMINATION: 1. SECTIONS OF APPENDIX REVEAL FIBROSIS OF DISTAL APPENDICEAL LUMEN. THERE IS NO SIGNIFICANT INFLAMMATION. 2. SECTIONS OF GALLBLADDER REVEAL MODERATE CHRONIC INFLAMMATION OF LAMINA PROPRIA. THE MUCOSAL SHOWS NORMAL MATURATION WITHOUT ATYPIA. PHYSICIANS MARY BAUER/[phone] JUNO VARGAS/[phone] CHARGE CODE CPT COUNT [id number] Pathology from 04/16/2012 12:00 [facility] SOURCE POLYP COLON-ROUTINE, CECUM FINAL DIAGNOSIS COLON POLYP, CECUM, BIOPSY: ACUTE AND CHRONIC INFLAMMATION AND GRANULATION TISSUE. (JOHN) SIGNATURE MARIXA ENRIQUEZ , PATHOLOGIST (CASE SIGNED 04/17/2012 AT 12:57) GROSS EXAMINATION: 1. RECEIVED IN FIXATIVE LABELED CECAL POLYP IS A SINGLE 0.3 CM YELLOWISH GUAMAN MUCOSAL FRAGMENT WHICH IS SUBMITTED IN TOTO. (RS/CLN) MICROSCOPIC EXAMINATION: SECTIONS SHOW A BIOPSY OF GRANULATION TISSUE WITH ACUTE AND CHRONIC INFLAMMATION. INTACT EPITHELIUM IS NOT IDENTIFIED FOR EVALUATION. 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 (JOHN) SIGNATURE Neri BARAKAT (CASE SIGNED 03/26/2012 AT 10:01) GROSS EXAMINATION: 1. SUBMITTED IN FORMALIN LABELED "ESOPHAGUS" ARE MULTIPLE BIOPSIES THE LARGEST MEASURING 0.2 CM. THEY ARE TOTALLY SUBMITTED. (RD/CLN) MICROSCOPIC EXAMINATION: BIOPSY REVEAL GASTRIC GLANDULAR MUCOSA WITHOUT A SQUAMOUS COMPONENT. THERE IS MODERATE ACUTE AND CHRONIC INFLAMMATION. THERE IS NO INTESTINAL METAPLASIA PRESENT. THERE IS NO DYSPLASIA. PHYSICIANS CRUZ PADILLA// CHARGE CODE CPT COUNT [id number] 1 Pathology from 07/06/2011 12:00 [facility] S[facility] SKIN BX-ROUTINE, T/ED & C, RT UPPER FOREHEAD 1.3 X 0.9 MM FINAL DIAGNOSIS SKIN, RIGHT UPPER FOREHEAD, BIOPSY: BASAL CELL CARCINOMA, PRESENT AT DEEP AND PERIPHERAL MARGINS. (RLM) SIGNATURE MARIXA ENRIQUEZ , PATHOLOGIST (CASE SIGNED 07/07/2011 AT 13:29) GROSS EXAMINATION: 1. SPECIMEN IS RECEIVED IN FORMALIN IN A SINGLE CONTAINER LABELED WITH THE PATIENT'S NAME, DESIGNATED "RIGHT UPPER FOREHEAD" AND CONSISTS OF A 1.5 X 1.3 X 0.2 CM SHAVE BIOPSY: ENTIRE SPECIMEN IS SUBMITTED IN "1A". (RS/CLN) MICROSCOPIC EXAMINATION: SECTIONS SHOW SKIN WITH A PROLIFERATION OF BASALOID KERATINOCYTES, CONSISTENT WITH BASAL CELL CARCINOMA. THE TUMOR SHOWS A PREDOMINANTLY NODULAR ARCHITECTURE AND EXTENDS TO THE DEEP MARGIN AND PERIPHERAL MARGINS. PHYSICIANS CORY SIMONS// CHARGE CODE CPT COUNT [id number] 1 Echocardiology from 09/12/2015 12:00 AMEchocardiogram See also the report from this date DX Radiology from 09/12/2015 4:33 PMCHEST 1 VIEW History: Post Operative Pacemaker Placement Priors: 08/09/2009 Findings: Heart size within normal limits. No acute infiltrate, pneumothorax or pleural effusions identified. There has been placement of 2 left subclavian cardiac leads in good position. Impression: COPD without acute cardiopulmonary process. Placed left subclavian cardiac leads without evidence of pneumothorax. Electronically signed by: Aguila Aleman MD Dictated: 09/13/2015 08:16 DX Radiology from 12/18/2013 11:40 AMSMALL BOWEL (GASTROGRAFIN) DATE OF EXAM: Dec 18 2013 12:54PM Proc: NELLIE 7995 - SMALL BOWEL FOLLOW THROUGH (GASTROGRAFIN) CPT Code(s): 79094-; ; ; INDICATION / CLINICAL HISTORY: Small bowel obstruction. COMPARISON: 12/18/13. FINDINGS: A nasogastric tube is in place. Review of the abdominal series performed earlier the same day reveals a small amount of enteric contrast remaining in the colon. There is relative prompt passage of enteric contrast through the small bowel and into the colon. This reaches the colon by the 45-minute lorraine. No dilated loops of bowel are demonstrated. The small bowel mucosa appears grossly normal. Note is made of a significant amount of enteric contrast remaining in the stomach. IMPRESSION: Contrast reaches the colon by the 45-minute lorraine. There are no findings to suggest small bowel obstruction. DX Radiology from 12/18/2013 6:00 AMOBSTRUCTIVE SERIES DATE OF EXAM: Dec 18 2013 6:37AM Proc: NELLIE 7351 - OBSTRUCTIVE SERIES (2 VIEW ABD) CPT Code(s): 60852-; ; ; INDICATION / CLINICAL HISTORY: Small Bowel Obstruction Supine and upright views of the abdomen were obtained. Correlation is made with the previous CT of the abdomen and pelvis dated 12/16/2013. FINDINGS: There has been placement of a nasogastric tube with its tip within the stomach. There are mildly distended loops of small bowel primarily within the midabdomen with a few air fluid levels identified. There is moderate retained fecal material and mild retained contrast material within the colon. There is no pneumoperitoneum. A large calcified gallstone is also identified. IMPRESSION: 1. Findings suggestive of partial small bowel obstruction with placement of a nasogastric tube with its tip in the stomach. 2. Mild to moderate constipation. 3. Cholelithiasis. DX Radiology from 03/20/2012 2:01 PMACUTE ABDOMEN SERIES DATE OF EXAM: Mar 20 2012 2:35PM Proc: NELLIE 4256 - ACUTE ABDOMEN SERIES CPT Code(s): 03892-; ; ; INDICATION / CLINICAL HISTORY: hemoptysis Single view of the chest and supine and upright views of the abdomen were obtained. Comparison was made to the prior KUB dated August 11, 2011. FINDINGS: CHEST: The heart size and pulmonary vasculature are within normal limits. No consolidating infiltrate, pleural effusion, or pneumothorax is seen. There are severe degenerative changes of the right shoulder with superior subluxation of the humeral head with respect to the glenoid, suggestive of chronic underlying rotator cuff tear. ABDOMEN: There is moderate retained fecal material within the ascending colon. There is no evidence of mechanical bowel obstruction or pneumoperitoneum. There is moderate right convexity lumbar scoliosis. There is an unchanged laminated calcific density within the right upper quadrant, which measures approximately 2 cm in diameter and most likely reflecting gallstone. There are also small calcific densities projected over the left kidney, suggestive of renal calculi. IMPRESSION: 1. Constipation. 2. Cholelithiasis and left nephrolithiasis. DX Radiology from 08/11/2011 10:46 AMABDOMEN (KUB) 1 VIEW DATE OF EXAM: Aug 11 2011 Proc: NELLIE 0035 - ABDOMEN (KUB) 1 VIEW CPT Code(s): 47617-; ; ; INDICATION / CLINICAL HISTORY: Possible left ureteroscopy, pre operative FINDINGS: There is mild constipation. There is a 2 cm calcified gallstone in the right upper quadrant. There is a small calcification projected over the left kidney measuring 4 mm consistent with a left renal stone. There is additional calcification of the left pelvis measuring 7 mm in diameter. This is indeterminate between a phlebolith and a distal ureteral stone. IMPRESSION: 1. Mild constipation. 2. Cholelithiasis. 3. A 4 mm calcific density projected over the left kidney suspicious for a left renal stone. 4. A 7 mm calcific density projected over the left pelvis indeterminate between phlebolith and distal left ureteral stone. If indicated noncontrast CT is recommended for further evaluation. DX Radiology from 08/11/2011 9:48 AMCYSTO EXAM DATE OF EXAM: Aug 11 2011 Proc: NELLIE 9008 - CYSTO EXAM (GENERIC) CPT Code(s): -; ; ; INDICATION / CLINICAL HISTORY: Study 1 FINDINGS: Images for Surgical Cysto Exams. IMPRESSION: Images for Surgical Cysto Exams. CT Scan from 09/11/2015 7:40 PMCT CHEST (CTA) History: r/o PE. . Chest pain Technique: Post contrast images were performed after the administration of 95 milliliters of Isovue intravenous contrast. 3 dimensional reconstructions were performed by the technologist. Priors: None. Findings: Heart Size: Normal. Aorta: Intact and normal in size. Mediastinum and Nancy: There are calcified mediastinal lymph nodes. Pulmonary Arteries: No evidence of filling defect to suggest pulmonary emboli. Pleura: No effusion or pneumothorax. Pulmonary parenchyma: There is mild biapical pleural parenchymal scarring. No focal infiltrates are identified. There is mild right convexity thoracic scoliosis. Upper abdomen: There are postsurgical changes of cholecystectomy. Impression: Unremarkable CTA of the thorax without pulmonary embolus or acute aortic abnormality. Electronically signed by: Jackie Chavira MD Dictated: 09/12/2015 08:16 CT Scan from 01/11/2015 10:51 PMCT SPINE CERVICAL W/O CONTRAST History: Head Injury . Priors: None. Findings: There is mild anterolisthesis of C4 upon 5 and C 7 upon T1. There is no acute fracture. There is multilevel disc space narrowing There is multilevel posterior disc osteophyte formation, most significant at the C5-6 level were this results in at least a mild degree of central canal stenosis. Hypertrophic degenerative changes are noted at multiple levels and result in multilevel neural foraminal stenosis. The soft tissues are unremarkable. Nodular densities, 1 of which is partially calcified, are noted in the lung apices. This likely represents scarring. Impression: Advanced degenerative changes without acute osseous abnormality. Electronically signed by: Ad Nolan MD Dictated: 01/12/2015 09:37 CT Scan from 01/11/2015 10:49 PMCT FACIAL BONES W/O CONTRAST History: Head Injury . Priors: None. Findings: There are multiple facial bone fractures. There is a fracture involving the lateral orbital rim as well as a medial orbital rim. A fracture extends along the superior orbital rim and frontal bone. This is not appear to extend into the inner table of the skull. Fracture of the zygomatic arch as well as fractures of the anterior and posterior left maxillary sinus wall. There is a fracture of the medial sinus suspected as well. There are no CT findings of entrapment. The intraorbital contents appear intact. Blood is noted in the left maxillary sinus with an air-fluid level. Trace amount of fluid is noted in the right maxillary sinus. There are no additional fractures there is what appears to be a prominent osteophyte off the mandibular condyle. There is left periorbital soft tissue swelling as well as swelling more inferiorly. Impression: There are fractures involving the superior, lateral, and inferior orbital woo, as well as the anterior and posterior woo of the left maxillary sinus and of the left zygomatic arch. Blood is noted in both maxillary sinuses, left greater than right. Electronically signed by: Ad Nolan MD Dictated: 01/12/2015 09:42 CT Scan from 01/11/2015 10:47 PMCT CEREBRAL W/O CONTRAST History: Head Injury . Priors: 08/09/09 Findings: Ventricles and Extra axial spaces: The ventricles and sulci are mildly prominent, consistent with atrophy. Hemorrhage: None. Cerebral parenchyma: Normal. Mass effect/midline shift: None. Brainstem/Cerebellum: Normal. Calvarium: Normal. Visualized Paranasal sinuses/Mastoids: There is partial opacification of the left mastoid air cells. Air-fluid levels are but noted both maxillary sinuses and there are facial bone fractures, as detailed on dedicated facial bone CT. Impression: Mild atrophy without acute intra cranial processes. Facial bone fractures as detailed on dedicated facial bone CT. Electronically signed by: Ad Nolan MD Dictated: 01/12/2015 09:26 CT Scan from 12/16/2013 7:13 PMCT ABD/PELVIS W/CONTRAST DATE OF EXAM: Dec 16 2013 8:51PM Proc: CT 0232 - CT ABD/PELVIS W/ CONTRAST CPT Code(s): 20429-; ; ; INDICATION / CLINICAL HISTORY: Abdominal Pain TECHNIQUE: Multiple axial images were obtained through the abdomen and pelvis following administration of 95 cc Isovue 300 for postcontrast imaging. No prior study is available for comparison. FINDINGS: There is a 3 mm noncalcified nodular density in the right middle lobe. The liver is normal in size. This is an irregular hypodense lesion measuring approximately 1.8 cm within the posterior aspect of the right lobe of the liver, which is indeterminate. There are calcified splenic granulomas noted. The pancreas, adrenal glands are within normal limits. There are small non-obstructing bilateral renal calculi. There are multiple well-circumscribed low-density lesion within both kidneys suggestive of renal cysts. There is a 1.4 cm densely calcified stone within a nondistended gallbladder. No significant retroperitoneal lymphadenopathy is identified. There is moderate to marked distension of the stomach and moderately distended proximal and mid small bowel with a small bowel feces sign in decompressed distal small bowel loops consistent with partial small bowel obstruction. The transition zone is not discretely identified, however, appears to be in the mid to distal small bowel. A small hiatal hernia is noted. CT PELVIS: The appendix is not discrete visualized. There is low density within the central aspect of the prostate gland suggesting prior TURP. The urinary bladder is within normal limits. There is no pelvic ascites or significant pelvic lymphadenopathy. IMPRESSION: 1. Findings consistent with small bowel obstruction. A discrete transition is not identified, however, it appears to be within the mid to distal small bowel. 2. Irregular hypodense lesion within the posterior right lobe of the liver. This is indeterminate and could reflect a cavernous hemangioma, however, neoplastic process cannot be excluded. Follow up CT of the abdomen and pelvis with hepatic protocol is suggested for further evaluation. 3. A 3 mm indeterminate right middle lobe pulmonary nodule. ADDENDUM: Comparison is made with previous CT without contrast from the [facility] dated 08/01/2011. The low-density lesion within the posterior right lobe of the liver was present on the study of 08/01/2011, and is similar in size. These findings are suggestive of a benign process such as a cavernous hemangioma. Problems Encounter Diagnosis No relevant problems exist. [...] of Care Procedures * Completed Procedure Code: [id number] Procedure Name: not valued, on 09/12/2015 12 :00 AM * Completed Procedure Code: [id number] Procedure Name: not valued, on 09/12/2015 12 :00 AM * Completed Procedure Code: [id number] Procedure Name: not valued, on 09/12/2015 12 :00 AM * Completed Procedure Code: [id number] Procedure Name: not valued, on 09/12/2015 12 :00 AM * Completed Procedure Code: [id number] Procedure Name: not valued, on 09/12/2015 12 :00 AM * Completed ventral hernia with mesh, by MD JUNO VARGAS, on 04/28/2014 9:21 AM * Completed excision of umbilicus, by MD JUNO VARGAS, on 04/28/2014 12:00 AM * Completed Procedure Code: 42551 Procedure Name: not valued, on 04/28/2014 12: 00 AM * Completed Procedure Code: 24232 Procedure Name: not valued, on 04/28/2014 12: 00 AM * Completed Procedure Code: 85464 Procedure Name: not valued, on 04/28/2014 12: 00 AM * Completed olecranon bursectomy, Right, by MD MARQUISE WASHBURN, on 04/20/2014 3: 00 PM * Completed Procedure Code: 18072 Procedure Name: not valued, on 04/20/2014 12: 00 AM * Completed Laparoscopic Cholecystectomy, by MD JUNO VARGAS, on 01/20/2014 12 :13 PM * Completed Procedure Code: 64527 Procedure Name: not valued, on 01/20/2014 12: 00 AM * Completed Procedure Code: 05606 Procedure Name: not valued, on 01/20/2014 12: [...]
--- OUTSIDE RECORDS SUMMARY | 2017-04-03 10:00 | XMS REPORT | Summary of Care ---
Author Author Reagan Nuñez, Dereje Peguero Organization Unknown Address [address], [place] [id number] Phone Unavailable Care Team Providers Care Workers Compensation Claims Specialist Name Role Phone Marianne Nuñez, FACS, ,, M Ty Unavailable [...] Active Biliary calculus (574.20, K80.20) Status: Active Abdominal pain (789.00, R10.9) Status: Active Cholelithiasis (574.20, K80.20) Status: Active Left breast lump (611.72, N63) Status: Active Right elbow pain (719.42, M25.521) Status: Active Pre-operative exam (V72.84, Z01.818) Status: Active Obstructive sleep apnea (327.23, G47.33) [...] upper respiratory infection (465.9, J06.9) Status: Active Medications Name Dates Details Multiple [...] Ty Lopes M.D., FACS, , * Started Active Allergies and Adverse Reactions Name Dates [...] W/ Insert Guide Wire Fol By Cem Watt Completed:25-Mar-2012 History of Colonoscopy For Forceps Biopsy Completed:16-Apr-2012 History of Duodenoscopy With Biopsy Completed:07-Apr-2013 History of Laparoscopic Cholecystectomy With Cholangiography Completed:December-2013 History of Appendectomy As Part Of Other Major Procedure History of Ventral Hernia Repair History of Ventral Hernia Repair With Implantation Of Mesh Completed: Procedures not documented Immunization Name Dates Details Fluzone High-Dose Intramuscular Suspension Lot #: [id number] Administered on:09-Apr-2014 Social History Name Dates Details Smoking Status* Never smoker Vital Signs Date Test Result Details 15:58 BP Systolic 156 mm[Hg] Status: BP Diastolic 78 mm[Hg] Status: Heart Rate 84 /min Status: Respiration Rate 16 /min Status: Temperature 99.2 f Status: Weight 187 lb Status: Body Mass Index Calculated 30.18 kg/m2 Status: Body Surface Area Calculated 1.94 m2 Status: Results Date Description Value Details Results not documented Plan of Care Planned Observations* Name Dates Details Planned Goals not documented Goal Planned Encounters* Appointment; Provider: Ty Lopes On 04-Oct-2015 10:15 * Appointment; Provider: David Sultana On 26-May-2015 10:15 * Appointment; Provider: Ty Lopes On 18-May-2015 13:45 * Appointment; Provider: Ty Garrido On 15-Feb-2015 11:45 * Appointment; Provider: David Sultana On 23-Sep-2014 [...] Diagnosis: Problem not documented On 24-Apr-2013 08:30 Appointment; Conor Danielle Encounter Diagnosis: Problem not documented On 09-Apr-2013 14:30 Appointment; Sherlyn Huerta Encounter Diagnosis: Problem not documented On 08-Apr-2013 09:45 Appointment; Shantel Horner Encounter Diagnosis: Problem not documented On 07-Apr-2013 09:00 Appointment; Jeffrey Grissom Encounter Diagnosis: Problem not documented On 07-Apr-2013 08:00 Appointment; Ty Thompson Encounter Diagnosis: Problem not documented On 25-Mar-2013 09:15 Appointment; Pj Yarbrough Encounter Diagnosis: Problem not documented On 04-Mar-2013 14:30 Appointment; Ty Garrido Encounter Diagnosis: Problem not documented On 16:15 Appointment; Archie Diaz Encounter Diagnosis: Problem not documented On 14:15 Appointment; Sudhir Kirk Encounter Diagnosis: Problem not documented On 14:00
--- OUTSIDE RECORDS SUMMARY | 2017-04-03 10:00 | XMS REPORT | Summary of Care ---
Author Author Tre Bull M.D. Unknown Address [address] [place] [address] [place] [address] Phone Unavailable Care Team Providers Care Plaster Block Layer Name Role Phone Bk Garrido M.D. Unavailable Unavailable Elier Nuñez, Dior Oliva Unavailable Unavailable Tre Bull M.D. Unavailable Unavailable Jay Nuñez, Dior Crawford Unavailable [...] urinary tract symptoms (600.01, N40.1) Status: Active Medications Name Dates Details Multiple Vitamins Oral Tablet Active Fish Oil 1000 MG Oral Capsule * Refills: 0 Active Fiber CAPS * Refills: 0 Active Tamsulosin HCl - 0.4 MG Oral Capsule TAKE 1 CAPSULE BY MOUTH AT BEDTIME * Quantity: 90 Refills: 3 Tre Bull M.D. * Start Active ClonazePAM 0.5 MG Oral Tablet TAKE 1-3 TABLETS BY MOUTH 1 HOUR BEFORE BEDTIME FOR RESTLESSNESS NEEDED * Quantity: 60 Refills: 5 Ty Garrido M.D. Start 15-Feb-2015 Active Acetaminophen 500 MG Oral Tablet * Refills: 0 Ty Garrido M.D. Start 15-Feb-2016 Active Omeprazole 40 MG Oral Capsule Delayed Release TAKE 1 CAPSULE Bedtime * Quantity: 30 Refills: 11 Ty Thompson M.D. * Start 17-Aug-2016 Active ZyrTEC Allergy 10 MG Oral Capsule Take one tablet daily * Refills: 0 Sabino Jean M.D. Start 27-Mar-2016 Active Losartan Potassium 25 MG Oral Tablet TAKE 1 TABLET DAILY. * Quantity: 30 Refills: 11 Pj Thapa M.D. * Start 08-Feb-2016 Active Symbicort 160-4.5 MCG/ACT Inhalation Aerosol INHALE 2 PUFFS BY MOUTH TWICE DAILY * Quantity: 10.2 Refills: 3 Pj Thapa M.D. * Start 18-May-2016 Active Promethazine HCl - 25 MG Oral Tablet Take one tablet every 4 hours as needed for nausea and vomiting. * Refills: 0 Elier Nuñez, Pj Rader * Start 04-Nov-2015 Active SUMAtriptan Succinate 100 MG Oral Tablet TAKE 1 TABLET FOR MIGRAINE RELIEF. OCTOBER REPEAT 2 HOURS LATER. MAXIMUM 200MG/DAY. * Refills: 0 Elier Nuñez, Pj Rader * Start 04-Nov-2015 Active Xarelto 20 MG Oral Tablet TAKE 1 TABLET BY MOUTH EVERY DAY - PLEASE START ON 09/15/15 * Quantity: 30 Refills: 0 Elier Nuñez, Pj Rader * Start 13-Sep-2016 Active Pantoprazole Sodium 40 MG Oral Tablet Delayed Release TAKE 1 TABLET BY MOUTH 30 MINUTES BEFORE BREAKFAST EVERY DAY * Quantity: 30 Refills: 11 Jay Nuñez, Ty A * Start 28-Apr-2010 Active Allergies and Adverse Reactions Name Dates [...] Insert Guide Wire Fol By Cem Watt Completed: 25-Mar-2012 History of Colonoscopy For Forceps [...] Dates Details Fluzone High-Dose SUSP Lot #: [id number] on: 09-Apr-2014 Prevnar 13 Intramuscular Suspension Lot #: [id number] on: 11-May-2016 Fluzone High-Dose 0.5 ML Intramuscular Suspension Prefilled Syringe Lot #: [id number] on: 11-May-2016 Family History Name Dates Details [...] smoker Vital Signs Date Test Result Details 09-Oct-2016 11:21 BP Systolic 126 mm[Hg] Status: Comments: Location: ; Position: BP Diastolic 80 mm[Hg] Status: Comments: Location: ; Position: Heart Rate 79 /min Status: Comments: Location: ; Height 66 in Status: Weight 180 lb Status: Body Mass Index Calculated 29.05 kg/m2 Status: Body Surface Area Calculated 1.91 m2 Status: 13-Sep-2016 10:04 Heart Rate 90 /min Status: Comments: Location: ; Weight 184 lb Status: Physical Findings 96 Status: Comments: O2 Saturation Body Mass Index Calculated 29.7 kg/m2 Status: Body Surface Area Calculated 1.93 m2 Status: Results Date Description Value Details 09-Oct-2016 10:00 PSA ( PROSTATE SPECIFIC ANTIGEN) 3100 PROSTATE SPECIFIC ANTIGEN 1.530 ng/mL Range: 0.000-4.000 Plan of Care Name Dates Details Planned Observations Planned Goals not documented Planned Encounters Appointment; Provider: David Sultana M.D. On 13-Feb-2017 15:15 Appointment; Provider: Pj Thapa M.D. On 09-Nov-2016 14:15 Appointment; Provider: Tre Bull M.D. On 26-Oct-2016 09:15 Appointment; Provider: Everton Cummins M.D. On 12-Oct-2016 11:00 Appointment; Provider: Ty Thompson M.D. On 10-Oct-2016 08:00 Instructions Name Dates Details Instructions not documented [...] On 04-Nov-2015 14:30 Appointment; Ty Lopes M.D.,[facility], Encounter Diagnosis: Problem not documented On 04-Oct-2015 [...]
--- OUTSIDE RECORDS SUMMARY | 2017-04-03 10:01 | XMS REPORT | Summary of Care ---
Author Author Ilan Nuñez, Bk Whitehead Organization Unknown Address Unknown Phone Unavailable Care Team Providers Care Dispatcher Relay Name Role Phone Bk Garrido M.D. Unavailable Unavailable Elier Nuñez, Dior Oliva Unavailable Unavailable Bk Talavera M.D. Unavailable [...] Active Difficulty breathing (786.09, R06.89) Status: Active Medications Name Dates Details Multiple [...] 0 Tre Bull M.D. Start 10-Oct-2016 Active Allergies and Adverse Reactions Name Dates [...] Biopsy Completed: 25-Mar-2012 ENT Precert Ordered: 17-Aug-2016 PSA ( PROSTATE SPECIFIC ANTIGEN) 3100 Ordered: 10-Oct-2016 CBC w/ Auto Diff 7150 Ordered: 12-Oct-2016 Comprehensive Metabolic Panel 1212 Ordered: 12-Oct-2016 Lipase 1275 Ordered: 12-Oct-2016 Urinalysis, Reflex to Microscopic or Culture PRN [id number] Ordered: 12-Oct-2016 XRay CHEST-PA & LAT Ordered: 12-Oct-2016 Immunization Name Dates Details Fluzone High-Dose SUSP Lot #: [id number] on: 09-Apr-2014 Prevnar 13 Intramuscular Suspension Lot #: [id number] on: 11-May-2016 Fluzone High-Dose 0.5 ML Intramuscular Suspension Prefilled Syringe Lot #: [id number] on: 11-May-2016 Family History Name Dates Details [...] smoker Vital Signs Date Test Result Details 12-Oct-2016 08:55 BP Systolic 142 mm[Hg] Status: [...] BP Systolic 126 mm[Hg] Status: Comments: Location: LUE; Position: Sitting BP Diastolic 80 mm[Hg] Status: Comments: Location: LUE; Position: Sitting Heart Rate 79 /min Status: Comments: Location: [...] NEGATIVE Range: Negative [place] NEGATIVE Range: Negative Plan of Care Name Dates Details Planned Observations Planned Goals not documented Planned Encounters Appointment; Provider: David Sultana M.D. On 13-Feb-2017 15:15 Appointment; Provider: Pj Thapa M.D. On 09-Nov-2016 14:15 Appointment; Provider: Ty Thompson M.D. On 07-Nov-2016 08:30 Appointment; Provider: Tre Bull M.D. On 26-Oct-2016 09:15 Appointment; Provider: Everton Cummins M.D. On 12-Oct-2016 11:00 Interventions Provided Labs/Procedures/Imaging* CBC w/ Auto Diff 7150; To be Done: 12 Oct 2016 * Comprehensive Metabolic Panel 1212; To be Done: 12 Oct 2016 * Lipase 1275; To be Done: 12 Oct 2016 * Urinalysis, Reflex to Microscopic or Culture PRN [id number]; To be Done: 12 Oct 2016 * XRay CHEST-PA & LAT; To be Done: 12 Oct 2016 * Urinalysis, Reflex to Microscopic or Culture PRN [id number]; Done: Oct 12 2016 8: 55AM Instructions Name Dates Details Instructions not documented [...] documented On 04-Nov-2015 14:30 Appointment; Ty Lopes M.D.,[facility], Encounter Diagnosis: Problem not documented [...]
--- OUTSIDE RECORDS SUMMARY | 2017-04-03 10:01 | XMS REPORT | Summary of Care ---
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 May take an additional capsule if needed. * Quantity: 30 Refills: 0 Anthony Banks M.D.* Started 23-May-2010 ActiveTylenol Extra Strength 500 MG Oral Tablet * Refills: 0 * Started 25-Mar-2010 Active Allergies and Adverse Reactions Name Dates [...] of Urinary retention (788.20, R33.9) Status: Resolved Procedures Procedure Dates Details History [...] Details Fluzone High-Dose Intramuscular Suspension Lot #: [id number] Administered on:09-Apr-2014 Social History Name Dates Details Smoking Status* Never smoker Vital Signs Date Test Result Details No Known Vitals to report Results Date Description Value Details Results not documented Plan of Care Planned Observations* Name Dates Details Planned Goals not documented Goal Planned Encounters* Appointment; Provider: Ty Lopes On 04-Oct-2015 10:15 * Appointment; Provider: Ty Lopes On 18-May-2015 13:45 * Appointment; Provider: Ty Garrido On 15-Feb-2015 11:45 * Appointment; Provider: David Sultana On 26-Oct-2014 16:30 * Appointment; Provider: David Sultana On 23-Sep-2014 [...] Instructions * Instructions not documented Encounters Appointment; David Sultana Encounter Diagnosis: Problem not [...] Encounter Diagnosis: Problem not documented On 14:00 Appointment; Sudhir Kirk Encounter Diagnosis: Problem not documented On 10:15
--- OUTSIDE RECORDS SUMMARY | 2017-04-03 10:02 | XMS REPORT | Summary of Care ---
Author Author Hema Nuñez, Bk Crawford Organization Unknown Address [address] [place], [place] [id number] Phone Unavailable Care Team Providers Care Administrative Services Manager Name Role Phone Bk Garrido M.D. Unavailable Unavailable Marianne Nuñez, FACS, ,, M Ty Unavailable Unavailable Darren Nuñez, Son Unavailable Unavailable Shaina Bliss, Dinorah Unavailable Unavailable Jay Nuñez, Dior Crawford Unavailable [...] Active Pre-operative exam (V72.84, Z01.818) Status: Active [place]'s esophagus (530.85, K22.70) Status: Active Olecranon bursitis [...] Active Excessive sleepiness (780.54, G47.10) Status: Active Medications Name Dates Details Multiple [...] Details Fluzone High-Dose Intramuscular Suspension Lot #: [id number] Administered on:09-Apr-2014 Social History Name Dates Details Smoking Status* Never smoker Vital Signs Date Test Result Details 08:15 BP Systolic 128 mm[Hg] Status: BP Diastolic 76 mm[Hg] Status: Temperature 98.2 f Status: Heart Rate 98 /min Status: O2 SAT 95 % Status: Results Date Description Value Details 08:30 XRay RIBS-Left W/PA CXR Comments: Exam Date: 2014 08:32Dictation Date: 01/25/2015 08:30 X RIBS UNILAT W/PA CHEST LT (Better) Plan of Care Planned Observations* Name [...] Instructions * Instructions not documented Encounters Appointment; Ty Garriod Encounter Diagnosis: Problem not documented On 15-Feb-2015 [...]
--- OUTSIDE RECORDS SUMMARY | 2017-04-03 10:02 | XMS REPORT | Summary of Care ---
Author Author Reagan Nuñez, Dereje Dixon Unknown Address [address] [place], [place] [phone] Phone Unavailable Care Team Providers Care Dispute Resolution Analyst Name Role Phone Bk Garrido M.D. Unavailable [...] Status: Active Dysuria (788.1, R30.0) Status: Active Medications Name Dates Details Multiple [...] Guide Wire Fol By Goldat Esoph Over Completed:25-Mar-2012 History of Colonoscopy For Forceps Biopsy Completed:16-Apr-2012 History of Duodenoscopy With Biopsy Completed:07-Apr-2013 History of Laparoscopic Cholecystectomy With Cholangiography Completed:December-2013 History of Appendectomy As Part Of Other Major Procedure History of Ventral Hernia Repair History of Ventral Hernia Repair With Implantation Of Mesh Completed: Urinalysis, Reflex to Microscopic or Culture PRN [id number] Ordered:26-Mar-2015 Immunization Name Dates Details Fluzone High-Dose Intramuscular Suspension Lot #: [id number] Administered on:09-Apr-2014 Social History Name Dates Details [...]
--- OUTSIDE RECORDS SUMMARY | 2017-04-03 10:03 | XMS REPORT | Summary of Care ---
Author Author Jay Nuñez, Dior Crawford Organization Unknown Address [address] [place], [place] [phone] Phone Unavailable Care Team Providers Care Boat Garnisher Name Role Phone Marianne Nuñez, FACS, ,, M Ty Unavailable Unavailable Darren Nuñez, Son Unavailable Unavailable Dior Thompson M.D. Unavailable Unavailable Sudhir Kirk PP Unavailable Unavailable [...] of facial bones (802.8, S02.92XA) Status: Active Medications Name Dates Details Multiple [...] Ty Lopes M.D., FACS, , * Started ActiveHydrocodone-Acetaminophen 2.5-108 MG/5ML Oral Solution * Refills: 0 * Started Active Allergies and Adverse Reactions [...] Guide Wire Fol By Cem Hughesoph Over Completed:25-Mar-2012 History of Colonoscopy For Forceps Biopsy Completed:16-Apr-2012 History of Duodenoscopy With Biopsy Completed:07-Apr-2013 History of Laparoscopic Cholecystectomy With Cholangiography Completed:December-2013 History of Appendectomy As Part Of Other Major Procedure History of Ventral Hernia Repair History of Ventral Hernia Repair With Implantation Of Mesh Completed: Procedures not documented Immunization Name Dates Details Fluzone High-Dose Intramuscular Suspension Lot #: [id number] Administered on:09-Apr-2014 Social History Name Dates Details Smoking Status* Never smoker Vital Signs Date Test Result Details 15:22 BP Systolic 115 mm[Hg] Status: BP Diastolic 79 mm[Hg] Status: Heart Rate 54 /min Status: Weight 185 lb Status: Body Mass Index Calculated 29.86 kg/m2 Status: Body Surface Area Calculated 1.93 m2 Status: 10:11 BP Systolic 146 mm[Hg] Status: BP Diastolic 76 mm[Hg] Status: Heart Rate 88 /min Status: Respiration Rate 16 /min Status: Weight 186 lb Status: Body Mass Index Calculated 30.02 kg/m2 Status: Body Surface Area Calculated 1.94 m2 Status: 15:58 BP Systolic 156 mm[Hg] Status: BP [...] documented Goal Planned Encounters* Appointment; Provider: Ty Lpoes On 04-Oct-2015 10:15 * Appointment; Provider: David [...] * Instructions not documented Encounters Appointment; Ty Thompson Encounter Diagnosis: Problem not [...]
--- OUTSIDE RECORDS SUMMARY | 2017-04-03 10:03 | XMS REPORT | Summary of Care ---
Author Author Dre Nuñez, Sudhir Dixon Unknown Address [address] [place] [address] Phone Unavailable Care Team Providers Care Informatics Manager Name Role Phone Bk Garrido M.D. 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 Right low back pain (724.2, M54.5) Status: Active Lung disease, chronic obstructive (496, J44.9) Status: Active Increased prostate specific antigen (PSA) velocity (790.93, R97.20) Status: Active Chronic maxillary sinusitis (473.0, J32.0) Status: Active Chronic laryngitis (476.0, J37.0) Status: Active Chronic frontal sinusitis (473.1, J32.1) Status: Active Chronic ethmoidal sinusitis (473.2, J32.2) [...] Dates Details Fluzone High-Dose SUSP Lot #: [id number] on: 09-Apr-2014 Prevnar 13 Intramuscular Suspension Lot #: [id number] on: 11-May-2016 Fluzone High-Dose 0.5 ML Intramuscular Suspension Prefilled Syringe Lot #: [id number] on: 11-May-2016 Family History Name Dates Details [...] attached to this order: Extra Tube, IRASEMA, MIXER TENDER Charge WBC 5.0 K/uL Range: 4.5-11.0 RBC [...] attached to this order: Extra Tube, IRASEMA, MIXER TENDER Charge SODIUM 136 mmol/L Range: 133-144 POTASSIUM 4.1 mmol/L Range: 3.5-5.1 CHLORIDE 102 mmol/L Range: 98-110 CARBON DIOXIDE 30.5 mmol/L Range: 23.0-33.0 ANION GAP 4 mmol/L (Below low threshold) Range: 6-16 BUN 15 mg/dL Range: 7-18 CREATININE, SERUM 1.15 mg/dL Range: 0.70-1.30 BUN:CREATININE RATIO 13 EST GFR, >60 ml/min Range: >60 EST GFR, NON-AFR [place] >60 ml/min Range: >60 Comments: EST GFR [...] attached to this order: Extra Tube, IRASEMA, MIXER TENDER Charge LIPASE 129 U/L Range: 73-393 10:27 AMYLASE 1250 Comments: Items were attached to this order: Extra Tube, IRASEMA, MIXER TENDER Charge AMYLASE 52 U/L Range: 25-115 13-Oct-2016 [...] 08:30 Appointment; Provider: Tre Bull M.D. On 06-Nov-2016 11:45 Instructions Name Dates Details Instructions not documented [...] documented On 04-Nov-2015 14:30 Appointment; Ty Lopes M.D.,[facility], Encounter Diagnosis: Problem not documented On [...]
--- OUTSIDE RECORDS SUMMARY | 2017-04-03 10:04 | XMS REPORT | Summary of Care ---
Author Author Bk Whyte D.O. Organization Unknown Address [address] [place], [place] [phone] Phone Unavailable Care Team Providers Care Wire Coating Operator Metal Name Role Phone Hema Nuñez, Bk Crawford Unavailable Unavailable Marianne Nuñez, FACS, ,, M Ty Unavailable Unavailable Darren Nuñez, Son Unavailable Unavailable Bk Whyte D.O. Unavailable Unavailable Jay Nuñez, Dior Crawford Unavailable Unavailable Reagan Nuñez, Dereje Peguero Unavailable Unavailable Pj Thapa PP Unavailable Unavailable Unavailable Functional Status Functional [...] Benign essential hypertension (401.1, I10) Status: Active URI, acute (465.9, J06.9) Status: Active Allergic rhinitis (477.9, J30.9) Status: Active Medications Name Dates Details Multiple [...] Ty Lopes M.D., FACS, , * Started ActiveVitamin E 400 UNIT [...] Refills: 0 Sudhir Kirk M.D.* Started 15-Sep-2015 ActiveAzithromycin 250 MG Oral Tablet 2 PO today, then 1 PO daily thereafter * Quantity: 6 Refills: 0 Onur Whyte D.O.* Started 29-Sep-2015 ActiveCetirizine HCl - 10 MG Oral Tablet TAKE 1 TABLET DAILY NEEDED. * Quantity: 1 Refills: 0 Onur Whyte D.O.* Started 29-Sep-2015 Ended 30-Sep-2015 Active Allergies and Adverse Reactions Name Dates [...] Details Fluzone High-Dose Intramuscular Suspension Lot #: [id number] Administered on:09-Apr-2014 Family History aunt* Name Dates [...] smoker Vital Signs Date Test Result Details 29-Sep-2015 17:12 BP Systolic 108 mm[Hg] Status: BP Diastolic 72 mm[Hg] Status: Temperature 98.6 f Status: Heart Rate 85 /min Status: Respiration Rate 16 /min Status: O2 SAT 96 % Status: 20-Sep-2015 12:54 BP Systolic 122 mm[Hg] Status: [...] m2 Status: Results Date Description Value Details 28-Sep-2015 11:32 PSA ( PROSTATE SPECIFIC ANTIGEN) 3100 PROSTATE SPECIFIC ANTIGEN 0.510 ng/mL (Better) Range: 0.000-4.000 Plan of Care Planned Observations* Name Dates Details Planned Goals not documented Goal Planned Encounters* Appointment; Provider: Everton Cummins On 27-Mar-2016 11:00 * Appointment; Provider: Ty Garrido On 21-Feb-2016 10:30 * Appointment; Provider: Pj Thapa On 04-Nov-2015 14:30 * Appointment; Provider: Everton Cummins On 21-Oct-2015 13:45 * Appointment; Provider: Ty Lopes On 04-Oct-2015 [...] Instructions * Instructions not documented Encounters Appointment; Onur Whyte Encounter Diagnosis: Problem not documented On 29-Sep-2015 17:05 Appointment; Everton Cummins Encounter Diagnosis: Problem not [...] Problem not documented On 20-Feb-2014 09:30 Appointment; Sheryln Huerta Encounter Diagnosis: Problem not documented On [...]
--- OUTSIDE RECORDS SUMMARY | 2017-04-03 10:05 | XMS REPORT | Summary of Care ---
Author Author Marianne Nuñez, FACS, ,, M Ty Organization Unknown Address [address] [place], [place] [phone] Phone Unavailable Care Team Providers Care Trucking Supervisor Name Role Phone Bk Garrido M.D. Unavailable Unavailable Marianne Nuñez, WILLY, ,, M Ty Unavailable Unavailable Darren Nuñez, [...] Refills: 11 Ty Thompson M.D.* Started 28-Apr-2010 ActiveTamsulosin HCl - 0.4 MG Oral Capsule TAKE 1 CAPSULE BY MOUTH AT BEDTIME * Quantity: 90 Refills: 3 Ty Lopes M.D., FACS, , * Started ActiveVitamin E 400 UNIT Oral Tablet Take one tablet daily * Refills: 0 yT Garrido M.D.* Started 15-Feb-2015 ActiveClonazePAM 0.5 MG Oral Tablet TAKE 1-3 TABLETS BY MOUTH 1 HOUR BEFORE BEDTIME FOR RESTLESSNESS NEEDED * Quantity: 60 Refills: 5 Ty Garrido M.D.* Started 15-Feb-2015 ActiveXarelto 20 MG Oral Tablet Take 1 tablet daily * Refills: 0 Sudhir Kirk M.D.* Started 15-Sep-2015 ActiveLisinopril 5 MG Oral Tablet TAKE 1 TABLET DAILY. * Refills: 0 Sudhir Kirk M.D.* Started 15-Sep-2015 ActiveDiphenhydrAMINE HCl - 25 MG Oral Capsule 1 capsule at bedtime to help with sleep and allergies. May take an additional capsule if needed. * Quantity: 30 Refills: 0 Anthony Banks M.D.* Started 23-May-2010 Active Allergies and Adverse Reactions Name Dates [...] Hernia Repair With Implantation Of Mesh Completed: PSA ( PROSTATE SPECIFIC ANTIGEN) 3100 Ordered:22-Sep-2015 Immunization Name Dates Details Fluzone High-Dose Intramuscular Suspension Lot #: [id number] Administered on:09-Apr-2014 Family History aunt* Name Dates [...]
--- OUTSIDE RECORDS SUMMARY | 2017-04-03 10:05 | XMS REPORT | Summary of Care ---
Author Author Elier Nuñez, Dior Oliva Organization Unknown Address [address] [facility] [place] [phone] Phone Unavailable Care Team Providers Care Pigment Making Supervisor Name Role Phone Bk Garrido M.D. Unavailable Unavailable Marianne Nuñez, FACS, ,, M Ty Unavailable Unavailable Elier Nuñez, Dior Oliva Unavailable Unavailable Darren Nuñez, Son Unavailable Unavailable Jay Nuñez, Dior Crawford Unavailable Unavailable Reagan Nuñez, P Sudhir Unavailable Unavailable Pj Thapa PP Unavailable Unavailable [...] skin of trunk (216.5, 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 Obstructive sleep apnea (327.23, G47.33) [...] Active Allergic rhinitis (477.9, J30.9) Status: Active Benign prostatic hypertrophy (600.00, N40.0) Status: Active SOB (shortness of breath) on exertion (786.05, R06.02) Status: Active Hip pain, acute, left (719.45, M25.552) Status: Active Medications Name Dates Details Multiple [...] Refills: 0 Sudhir Kirk M.D.* Started 15-Sep-2015 ActiveSUMAtriptan Succinate 100 MG Oral Tablet TAKE 1 TABLET FOR MIGRAINE RELIEF. OCTOBER REPEAT 2 HOURS LATER. MAXIMUM 200MG/DAY. * Refills: 0 Pj Thapa M.D.* Started 04-Nov-2015 ActivePromethazine HCl - 25 MG Oral Tablet Take one tablet every 4 hours as needed for nausea and vomiting. * Refills: 0 Pj Thapa M.D.* Started 04-Nov-2015 Active Allergies and Adverse Reactions Name [...] Hernia Repair With Implantation Of Mesh Completed: CBC w/ Auto Diff 7150 Ordered:14-Oct-2015 Comprehensive Metabolic Panel 1212 Ordered:14-Oct-2015 LIPID PROFILE 1184 Ordered:14-Oct-2015 THYROID STIM. HORMONE 3602 Ordered:14-Oct-2015 Immunization Name Dates Details Fluzone High-Dose Intramuscular Suspension Lot #: [id number] Administered on:09-Apr-2014 Family History aunt* Name Dates [...] smoker Vital Signs Date Test Result Details 04-Nov-2015 14:27 BP Systolic 142 mm[Hg] Status: BP Diastolic 76 mm[Hg] Status: Heart Rate 88 /min Status: Height 66 in Status: Weight 183 lb Status: Body Mass Index Calculated 29.54 kg/m2 Status: Body Surface Area Calculated 1.93 m2 Status: Results Date Description Value Details 04-Nov-2015 15:39 XRay HIP-Left Comments: Exam Date: 11/04/2015 15: 20Dictation Date: 11/04/2015 15:39 X HIP COMP (MIN 2V) LT (Better) 15:40 XRay CHEST-(1 VIEW) Comments: Exam Date: 11/04/2015 15: 20Dictation Date: 11/04/2015 15:40 X CHEST (1 VIEW) (Better) Plan of Care Planned Observations* Name Dates Details Planned Goals not documented Goal Planned Encounters* Appointment; Provider: Ty Lopse On 04-Oct-2016 10:45 * Appointment; Provider: Everton Cummins On 25-Apr-2016 14:00 * Appointment; Provider: Everton Cummins On 27-Mar-2016 11:00 * Appointment; Provider: Ty Garrido On 21-Feb-2016 10:30 * Appointment; Provider: Pj Thapa On 18-Nov-2015 15:00 * Appointment; Provider: Everton Cummins On 12-Sep-2015 [...] Instructions * Instructions not documented Encounters Appointment; Pj Thapa Encounter Diagnosis: Problem not documented On 04-Nov-2015 14:30 Appointment; Ty Lopes Encounter Diagnosis: Problem not documented On 04-Oct-2015 10:15 Appointment; Onur Whyte Encounter Diagnosis: Problem not [...]
[2017-04-03] MEDS ORDERED: LOSA25TA21 (10:06)
[2017-04-03] MEDS ORDERED: BUDE10.2 (10:06)
[2017-04-03] MEDS ORDERED: BACL10TA (10:06)
[2017-04-03] MEDS ORDERED: OMEP40CA36 (10:06)
[2017-04-03] MEDS ORDERED: RIVA20TA (10:06)
[2017-04-03] MEDS ORDERED: PANT40TA3 (10:06)
--- OUTSIDE RECORDS SUMMARY | 2017-04-03 10:06 | XMS REPORT | Summary of Care ---
Author Author Elier Nuñez, Dior Dixon Unknown Address [address] [place], [place] [phone] Phone Unavailable Care Team Providers Care Employee Relation Manager Name Role Phone Bk Garrido M.D. [...] Active Laryngopharyngeal reflux (478.79, J38.7) Status: Active Allergic rhinitis (477.9, J30.9) Status: [...] Refills: 3 Pj Thapa M.D. * Start 12-Nov-2015 Active Losartan Potassium 25 MG Oral Tablet TAKE 1 TABLET DAILY. * Quantity: 30 Refills: 11 Pj Thapa M.D. * Start 08-Feb-2016 Active Acetaminophen 500 MG Oral Tablet * Refills: 0 Ty Garrido M.D. * Start 15-Feb-2016 Active ZyrTEC Allergy 10 MG Oral Capsule Take one tablet daily * Refills: 0 Sabino Jean M.D. Start 27-Mar-2016 Active Allergies and Adverse Reactions Name Dates [...] Dates Details Fluzone High-Dose SUSP Lot #: [id number] on: 09-Apr-2014 Prevnar 13 Intramuscular Suspension Lot #: [id number] on: 11-May-2016 Fluzone High-Dose 0.5 ML Intramuscular Suspension Prefilled Syringe Lot #: [id number] on: 11-May-2016 Family History Name Dates Details [...] smoker Vital Signs Date Test Result Details 11-May-2016 09:53 BP Systolic 120 mm[Hg] Status: Comments: Location: ; Position: BP Diastolic 70 mm[Hg] Status: Comments: Location: ; Position: Heart Rate 81 /min Status: Comments: Location: ; Weight 186 lb Status: Physical Findings 98 Status: Comments: O2 Saturation Body Mass Index Calculated 30.02 kg/m2 Status: Body Surface Area Calculated 1.94 m2 Status: Results Date Description Value Details Results not documented Plan of Care Name Dates Details Planned Observations Planned Goals not documented Planned Encounters Appointment; Provider: Ty Lopes M.D.|Indy,DARIEL,WILLY, On 04-Oct-2016 10:45 Appointment; Provider: Everton Cummins M.D. On 25-Sep-2016 10:15 Appointment; Provider: Pj Thapa M.D. On 11-Aug-2016 09:45 Appointment; Provider: David Sultana M.D. On 11-Jul-2016 08:30 Interventions Provided Medications/Immunizations Administered* Fluzone High-Dose 0.5 ML Intramuscular Suspension Prefilled Syringe; Done: 11 May 2016 * Prevnar 13 Intramuscular Suspension; Done: 11 May 2016 Instructions Name Dates Details Instructions not documented Encounters Appointment; Everton Cummins M.D. Encounter Diagnosis: Problem [...] documented On 05-Oct-2014 10:00 Appointment; Ty Lopes M.D.|FLalaA.CLalaSLala|Joaquin,WILLY|Joaquin,WILLY, Encounter Diagnosis: Problem not documented On 28-Sep-2014 [...] documented On 22-Jul-2014 13:30 Appointment; Christoph Scruggs M.D.|F.A.C.S.|MLalaDLala,WILLY|MArabella,FACS, Encounter Diagnosis: Problem not documented On 15-Jul-2014 14:00 Appointment; Christoph Scruggs M.D.|F.A.C.S.|MLalaDLala,FACS|MLalaDLala,FACS, Encounter Diagnosis: Problem not documented On 17-Jun-2014 14:15 Appointment; Christoph Scruggs M.D.|F.A.C.S.|M.DLala,FACS|MLalaDLala,FACS, Encounter Diagnosis: Problem not documented On 25-May-2014 13:45 Appointment; Sherlyn Huerta M.D. Encounter Diagnosis: Problem not documented On 15-May-2014 09:30 Appointment; Ty Lopes M.D.|F.A.C.S.|M.DLala,FACS|MLalaDLlaa,FACS, Encounter Diagnosis: Problem not documented On 13-May-2014 14:45 Appointment; Christoph Scruggs M.D.|F.A.C.S.|M.DLala,FACS|MLalaDLala,FACS, Encounter Diagnosis: Problem not documented On 13-May-2014 14:00"
--- OUTSIDE RECORDS SUMMARY | 2017-04-03 10:06 | XMS REPORT | Summary of Care ---
Author Author Dinorah Flowers Organization Unknown Address [address] [place], [place] [phone] Phone Unavailable Care Team Providers Care Research Hydraulic Engineer Name Role Phone Marianne Nuñez, WILLY, ,, M Ty Unavailable Unavailable Darren Nuñez, Son Unavailable Unavailable Dinorah Folwers Unavailable Unavailable Jay Nuñez, Dior Crawford Unavailable [...] Active Skin infection (686.9, L08.9) Status: Active Medications Name Dates Details Multiple [...] Oral Solution * Refills: 0 * Started ActiveSulfamethoxazole-TMP DS 800-160 MG Oral Tablet TAKE 1 TABLET TWICE DAILY UNTIL FINISHED. * Quantity: 10 Refills: 0 Shaina, Dinorah P.A.* Started Ended ActiveMupirocin 2 % External Ointment APPLY SPARINGLY TO AFFECTED AREA(S) TWICE DAILY * Quantity: 15 Refills: 0 Dinorah Merritt* Started Active Allergies and Adverse Reactions Name [...] Hernia Repair With Implantation Of Mesh Completed: XRay RIBS-Left W/PA CXR Ordered: Immunization Name Dates Details Fluzone High-Dose Intramuscular Suspension Lot #: [id number] Administered on:09-Apr-2014 Social History Name Dates Details Smoking Status* Never smoker Vital Signs Date Test Result Details 08:15 BP Systolic 128 mm[Hg] Status: BP Diastolic 76 mm[Hg] Status: Temperature 98.2 f Status: Heart Rate 98 /min Status: O2 SAT 95 % Status: 15:22 BP Systolic 115 mm[Hg] Status: BP [...] Instructions * Instructions not documented Encounters Appointment; Dinorah Merritt Encounter Diagnosis: Problem not [...] Problem not documented On 09-Apr-2014 11:45 Appointment; Christohp Scruggs Encounter Diagnosis: Problem not documented On 09-Apr-2014 11:15 Appointment; Christoph Scruggs Encounter Diagnosis: Problem not documented On 04-Mar-2014 13:45 Appointment; Sherlyn Huerta Encounter Diagnosis: Problem not documented On 24-Feb-2014 08:45 Appointment; Christpoh Scruggs Encounter Diagnosis: Problem not documented On [...]
--- OUTSIDE RECORDS SUMMARY | 2017-04-03 10:07 | XMS REPORT | Summary of Care ---
Author Author Irasema Parker APRN Organization Unknown Address [address] [facility] [place] [phone] Phone Unavailable Care Team Providers Care Uat Tester Name Role Phone Bk Garrido M.D. Unavailable [...] Microscopic or Culture PRN [id number] Ordered: 12-Oct-2016 CT AB/ PEL WITHOUT IV CONTRAST (FOR KIDNEY STONE) Ordered: 13-Oct-2016 Immunization Name Dates Details Fluzone High-Dose SUSP Lot #: [id number] on: 09-Apr-2014 Prevnar 13 Intramuscular Suspension Lot #: [id number] on: 11-May-2016 Fluzone High-Dose 0.5 ML Intramuscular Suspension Prefilled Syringe Lot #: [id number] on: 11-May-2016 Family History Name Dates Details [...] attached to this order: Extra Tube, IRASEMA, FLOOR DIRECTOR Charge WBC 5.0 K/uL Range: 4.5-11.0 RBC [...] attached to this order: Extra Tube, IRASEMA, FLOOR DIRECTOR Charge SODIUM 136 mmol/L Range: 133-144 POTASSIUM 4.1 mmol/L Range: 3.5-5.1 CHLORIDE 102 mmol/L Range: 98-110 CARBON DIOXIDE 30.5 mmol/L Range: 23.0-33.0 ANION GAP 4 mmol/L (Below low threshold) Range: 6-16 BUN 15 mg/dL Range: 7-18 CREATININE, SERUM 1.15 mg/dL Range: 0.70-1.30 BUN:CREATININE RATIO 13 EST GFR, >60 ml/min Range: >60 EST GFR, NON-AFR [place] >60 ml/min Range: >60 Comments: EST GFR [...] attached to this order: Extra Tube, IRASEMA, FLOOR DIRECTOR Charge LIPASE 129 U/L Range: 73-393 10:27 AMYLASE 1250 Comments: Items were attached to this order: Extra Tube, IRASEMA, FLOOR DIRECTOR Charge AMYLASE 52 U/L Range: 25-115 13-Oct-2016 [...] Sultana M.D. On 13-Feb-2017 15:15 Appointment; Provider: jP Thapa M.D. On 09-Nov-2016 14:15 Appointment; Provider: Ty Thompson M.D. On 07-Nov-2016 08:30 Appointment; Provider: Tre Bull M.D. On 26-Oct-2016 09:15 Appointment; Provider: Schedule Radiology On 13-Oct-2016 15:15 Interventions Provided Medication Changes* Baclofen 10 MG Oral Tablet - Start Labs/Procedures/Imaging* CT AB/ PEL WITHOUT IV CONTRAST (FOR KIDNEY STONE); To be Done: 13 Oct 2016 Instructions Name Dates Details Instructions not [...] On 04-Nov-2015 14:30 Appointment; Ty Lopes M.D.,[facility], Encounter Diagnosis: Problem not documented On 04-Oct-2015 [...]
--- OUTSIDE RECORDS SUMMARY | 2017-04-03 10:07 | XMS REPORT | Summary of Care ---
Author Author Tre Bull M.D. Unknown Address [address] [place] [address] [place] [address] Phone Unavailable Care Team Providers Care Agriculture Inspector Name Role Phone Bk Garrido M.D. Unavailable [...] Ty Thompson M.D. * Start 17-Aug-2016 Active Allergies and Adverse [...] Dates Details Fluzone High-Dose SUSP Lot #: [id number] on: 09-Apr-2014 Prevnar 13 Intramuscular Suspension Lot #: [id number] on: 11-May-2016 Fluzone High-Dose 0.5 ML Intramuscular Suspension Prefilled Syringe Lot #: [id number] on: 11-May-2016 Family History Name Dates Details [...] Provider: Ty Thompson M.D. On 10-Oct-2016 08:00 Interventions Provided Medication Changes* Tamsulosin HCl - 0.4 MG Oral Capsule - Renew Instructions Name Dates Details Instructions not documented [...] On 04-Nov-2015 14:30 Appointment; Ty Lopes M.D.,[facility], Encounter Diagnosis: Problem not documented On [...]
--- OUTSIDE RECORDS SUMMARY | 2017-04-03 10:08 | XMS REPORT | Summary of Care ---
Author Author Jay Nuñez, Dior Dixon Unknown Address Unknown Phone Unavailable Care Team Providers Care Logistics Service Representative Name Role Phone Hema Nuñez, Bk Crawford [...] Chronic ethmoidal sinusitis (473.2, J32.2) Status: Active Medications Name Dates Details Multiple [...] daily * Refills: 0 Sudhir Kirk M.D. Start 15-Sep-2015 Active SUMAtriptan Succinate 100 MG Oral Tablet TAKE 1 TABLET FOR MIGRAINE RELIEF. OCTOBER REPEAT 2 HOURS LATER. MAXIMUM 200MG/DAY. * Refills: 0 Pj Thapa M.D. Start 04-Nov-2015 Active Promethazine HCl - 25 MG Oral Tablet Take one tablet every 4 hours as needed for nausea and vomiting. * Refills: 0 Pj Thapa M.D. Start 04-Nov-2015 Active Symbicort 160-4.5 MCG/ACT Inhalation Aerosol INHALE 2 PUFFS BY MOUTH TWICE DAILY * Quantity: 10.2 Refills: 3 Pj Thapa M.D. A * Start 18-May-2016 Active Losartan Potassium 25 MG Oral Tablet TAKE 1 TABLET DAILY. * Quantity: 30 Refills: 11 Elier Nuñez, Pj Rader * Start 08-Feb-2016 Active Acetaminophen 500 MG Oral Tablet * Refills: 0 Hema NuñezTy * Start 15-Feb-2016 Active ZyrTEC Allergy 10 MG Oral Capsule Take one tablet daily * Refills: 0 Miranda NuñezSabino * Start 27-Mar-2016 Active LevoFLOXacin 750 MG [...] Dates Details Fluzone High-Dose SUSP Lot #: [id number] on: 09-Apr-2014 Prevnar 13 Intramuscular Suspension Lot #: [id number] on: 11-May-2016 Fluzone High-Dose 0.5 ML Intramuscular Suspension Prefilled Syringe Lot #: [id number] on: 11-May-2016 Family History Name Dates Details [...] >60 ml/min Range: >60 EST GFR, NON-AFR [place] 60 ml/min (Below low threshold) Range: >60 [...] On 09-Nov-2016 14:15 Appointment; Provider: Ty Lopes M.D.,[facility], On 04-Oct-2016 10:45 Appointment; Provider: Everton Cummins M.D. On 25-Sep-2016 10:15 Instructions Name Dates Details Instructions not documented [...] documented On 04-Nov-2015 14:30 Appointment; Ty Lopes M.D.,[facility], Encounter Diagnosis: Problem not documented On 04-Oct-2015 10:15 Appointment; Onur Whyte D.O. Encounter Diagnosis: Problem not documented On 29-Sep-2015 17:05 Appointment; Everton Cummins M.D. Encounter Diagnosis: Problem not documented On 20-Sep-2015 12:00 Appointment; Sudhir Kirk M.D. Encounter Diagnosis: Problem not documented On 15-Sep-2015 10:30 Appointment; Sudhir Krik M.D. Encounter Diagnosis: Problem [...] documented On 05-Oct-2014 10:00 Appointment; Ty Lopes M.D.,[facility], Encounter Diagnosis: Problem not documented On [...]
--- OUTSIDE RECORDS SUMMARY | 2017-04-03 10:08 | XMS REPORT | Summary of Care ---
Author Author Elier Nuñez, Dior Oliva Organization Unknown Address [address] [facility] [place] [address] Phone Unavailable Care Team Providers Care Hay Sorter Name Role Phone Bk Garrido M.D. Unavailable [...] skin of trunk (216.5, 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 Actinic keratosis (702.0, L57.0) Status: Active Seborrheic keratosis (702.19, L82.1) Status: Active Basal cell carcinoma 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, C44.310) Status: Active Symptomatic bradycardia (427.89, R00.1) Status: Active URI, acute (465.9, J06.9) Status: Active Allergic rhinitis (477.9, J30.9) Status: Active Hip pain, acute, left (719.45, M25.552) Status: Active Atrial fibrillation (427.31, I48.91) Status: Active Washington's esophagus (530.85, K22.70) Status: Active Benign prostatic hypertrophy (600.00, N40.0) Status: Active Obstructive sleep apnea (327.23, G47.33) Status: Active 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, Z95.0) Status: Active Obesity (BMI 30.0-34.9) (278.00, E66.9) Status: Active Asthma (493.90, J45.909) Status: Active COPD (chronic obstructive pulmonary disease) (496, J44.9) Status: Active Benign essential hypertension (401.1, I10) Status: Active Laryngopharyngeal reflux (478.79, J38.7) Status: [...] Refills: 0 Pj Thapa M.D.* Started 04-Nov-2015 ActiveSymbicort 160-4.5 MCG/ACT Inhalation Aerosol INHALE 2 PUFFS BY MOUTH TWICE DAILY * Quantity: 10.2 Refills: 3 Pj Thapa M.D.* Started 12-Nov-2015 Active Allergies and Adverse Reactions Name Dates [...] Cystoscopy With Ureteral Catheterization Completed:11-Aug-2011 History of Upr GI Endosc W/ Insert Guide Wire Fol By Cem Watt Completed:25-Mar-2012 History of Colonoscopy For Forceps Biopsy Completed:16-Apr-2012 History of Duodenoscopy With Biopsy Completed:07-Apr-2013 History of Laparoscopic Cholecystectomy With Cholangiography Completed:December-2013 History of Appendectomy As Part Of Other Major Procedure History of Ventral Hernia Repair History of Ventral Hernia Repair With Implantation Of Mesh Completed: History of Cataract Surgery History of Tonsillectomy With Adenoidectomy History of Sinus Surgery History of Appendectomy History of Gallbladder Surgery History of Umbilical Hernia Repair History of Reported Hx Of Knee Replacement - Bilateral History of Prostate Surgery History of Surgery Vas Deferens Vasectomy History of Back Surgery History of Complete Colonoscopy History of Gastroscopy With Biopsy Completed:25-Mar-2012 CP Echo Ordered:09-Nov-2015 CP Stress Echo Ordered:09-Nov-2015 Immunization Name Dates Details Fluzone High-Dose Intramuscular Suspension Lot #: [id number] Administered on:09-Apr-2014 Family History aunt* Name Dates Details Family history of leukemia (V16.6, Z80.6) Status: Active Mother* Name Dates Details Family history of Pacemaker Placement Status: Active Family history of dementia (V17.2, Z81.8) Status: Active Family history of cardiac pacemaker (V17.49, Z84.89) Status: Active Family history of congestive heart failure (V17.49, Z82.49) Status: Active Father* Name Dates Details Family history of cerebrovascular accident (CVA) (V17.1, Z82.3) Status: Active Family history of dementia (V17.2, Z81.8) Status: Active Family history of cardiac pacemaker (V17.49, Z84.89) Status: Active Family history of congestive heart failure (V17.49, Z82.49) Status: Active Sister* Name Dates Details Family [...] smoker Vital Signs Date Test Result Details 18-Nov-2015 15:10 BP Systolic 134 mm[Hg] Status: BP Diastolic 82 mm[Hg] Status: Heart Rate 88 /min Status: Respiration Rate 22 /min Status: Weight 187 lb Status: Body Mass Index Calculated 30.18 kg/m2 Status: Body Surface Area Calculated 1.94 m2 Status: 04-Nov-2015 14:27 BP Systolic 142 mm[Hg] Status: [...] 11/04/2015 15:40 X CHEST (1 VIEW) (Better) 16:12 CBC w/ Auto Diff 7150 Comments: nurse approved non-fasting WBC 5.1 K/uL (Better) Range: 4.5-11.0 RBC 4.73 mil/uL (Better) Range: 4.20-5.40 HGB 15.8 g/dL (Better) Range: 14.0-18.0 HCT 46.7 % (Better) Range: 42.0-53.0 MCV 98.8 fL (Better) Range: 80.0-99.0 MCH 33.5 pg (Above high threshold) Range: 27.3-32.5 MCHC 33.9 % (Better) Range: 32.0-36.0 RDW 12.9 % (Better) Range: 11.6-14.8 PLATELETS 197 K/uL (Better) Range: 150-400 MPV 7.3 fL (Better) Range: 6.0-11.0 %NEUTRO 57.4 % (Better) Range: 37.0-80.0 %LYMPHS 26.3 % (Better) Range: 13.0-50.0 %MONO 8.2 % (Better) Range: 0.0-12.0 %EOS 5.3 % (Better) Range: 0.0-7.0 %BASO 1.0 % (Better) Range: 0.0-2.5 %JAZMINE 1.9 % (Better) Range: 0.0-5.0 NEUTRO 2.9 K/uL (Better) Range: 2.0-6.9 LYMPHS 1.3 K/uL (Better) Range: 0.6-3.4 MONOS 0.4 K/uL (Better) Range: 0.0-0.9 EOS 0.3 K/uL (Better) Range: 0.0-0.7 BASO 0.1 K/uL (Better) Range: 0.0-0.2 16:27 LIPID PROFILE 1184 Comments: nurse approved non-fasting CHOLESTEROL 173 mg/dL (Better) Range: <200 TRIGLYCERIDES 151 mg/dL (Better) Range: 30-200 HDL Cholesterol 38 mg/dL (Below low threshold) Range: >39 NON HDL CHOLESTEROL 135 (Better) CARDIAC RSK FACTOR 4.6 units (Better) Range: 4.4-5.0 LDL - CALCULATED 105 mg/dL (Better) Range: 0-130 16:27 Comprehensive Metabolic Panel 1212 Comments: nurse approved non- fasting SODIUM 135 mmol/L (Better) Range: 133-144 POTASSIUM 3.9 mmol/L (Better) Range: 3.5-5.1 CHLORIDE 101 mmol/L (Better) Range: 98-110 CARBON DIOXIDE 27.3 mmol/L (Better) Range: 23.0-33.0 ANION GAP 7 mmol/L (Better) Range: 6-16 BUN 15 mg/dL (Better) Range: 7-18 CREATININE, SERUM 1.30 mg/dL (Better) Range: 0.70-1.30 Comments: Please note new reference ranges effective 2014.----- BUN:CREATININE RATIO 12 (Better) EST GFR, >60 ml/min (Better) Range: >60 EST GFR, NON-AFR ERITREAN 53 ml/min (Below low threshold) Range: >60 Comments: EST GFR is reported in ml/min per 1.73 m2 of body surface area. For -Bel[place]ian, please multiple result by 1.2.----- GLUCOSE 100 mg/dL (Better) Range: 70-100 ALK PHOSPHATASE 70 U/L (Better) Range: 46-116 TOTAL BILIRUBIN 1.40 mg/dL (Above high threshold) Range: 0.20-1.00 AST 31 U/L (Better) Range: 8-35 ALT 33 U/L (Better) Range: 16-63 Comments: Please note new reference ranges. Effective 09/10/2014.----- ALBUMIN 4.0 g/dL (Better) Range: 3.4-5.0 TOTAL PROTEIN 7.5 g/dL (Better) Range: 6.4-8.2 A/G RATIO 1.1 units (Better) Range: 1.0-1.8 CALCIUM 9.1 mg/dL (Better) Range: 8.5-10.1 16:56 THYROID STIM. HORMONE 3602 Comments: nurse approved non-fasting THYROID STIM. HORMONE 1.150 uIU/mL (Better) Range: 0.550-4.780 Comments: No established reference ranges for infants and children <2 years of age----- 12-Nov-2015 08:59 CP Echo Y Linked PDF Report Available for Review by Clicking ImageLink Button ( Better) 09:01 CP Stress Echo Y Linked PDF Report Available for Review by Clicking ImageLink Button ( Better) Plan of Care Planned Observations* Name Dates Details Planned Goals not documented Goal Planned Encounters* Appointment; Provider: Ty Lopes On 04-Oct-2016 10:45 * Appointment; Provider: Everton Cummins On 25-Apr-2016 14:00 * Appointment; Provider: Everton Cummins On 27-Mar-2016 11:00 * Appointment; Provider: Pj Thapa On 21-Feb-2016 14:00 * Appointment; Provider: Ty Garrido On 21-Feb-2016 10:30 * Appointment; Provider: Everton Cummins On 12-Sep-2015 [...] Thapa Encounter Diagnosis: Problem not documented On 18-Nov-2015 15:00 Appointment; Pj Thapa Encounter Diagnosis: Problem not [...] Diagnosis: Problem not documented On 09:00 Appointment; Chrsitoph Scruggs Encounter Diagnosis: Problem not documented On 11:15 Appointment; Sudhir Kirk Encounter Diagnosis: Problem not documented On 10:45 Appointment; Sherlyn Huerta Encounter Diagnosis: Problem not documented On 15:45
--- OUTSIDE RECORDS SUMMARY | 2017-04-03 10:09 | XMS REPORT ---
Author Author GENERATED, SYSTEM Organization Unknown Address Unknown Phone Unavailable Care Team Providers Care Support Coordinator Name Role Phone MD NINO, ZULMA PP Unavailable Reason For Visit Chief Complaint 10/10/16 DYSPHONIA Social History Functional Status Vital Signs Results Problems Encounter Diagnosis No relevant problems exist. [...] of Care Procedures * Completed Procedure Code: [id number] Procedure Name: not valued, on 09/12/2015 12 :00 AM * Completed Procedure Code: [id number] Procedure Name: not valued, on 09/12/2015 12 :00 AM * Completed Procedure Code: 01Q02JM Procedure Name: not valued, on 09/12/2015 12 :00 AM * Completed Procedure Code: [id number] Procedure Name: not valued, on 09/12/2015 12 :00 AM * Completed Procedure Code: [id number] Procedure Name: not valued, on 09/12/2015 12 :00 AM * Completed ventral hernia with mesh, by MD JUNO VARGAS, on 04/28/2014 9:21 AM * Completed excision of umbilicus, by MD JUNO VARGAS, on 04/28/2014 12:00 AM * Completed Procedure Code: 49121 Procedure Name: not valued, on 04/28/2014 12: 00 AM * Completed Procedure Code: 68324 Procedure Name: not valued, on 04/28/2014 12: 00 AM * Completed Procedure Code: 85201 Procedure Name: not valued, on 04/28/2014 12: 00 AM * Completed olecranon bursectomy, Right, by MD MARQUISE WASHBURN, on 04/20/2014 3: 00 PM * Completed Procedure Code: 14951 Procedure Name: not valued, on 04/20/2014 12: 00 AM * Completed Laparoscopic Cholecystectomy, by MD JUNO VARGAS, on 01/20/2014 12 :13 PM * Completed Procedure Code: 20016 Procedure Name: not valued, on 01/20/2014 12: 00 AM * Completed Procedure Code: 55517 Procedure Name: not valued, on 01/20/2014 12: [...] Hospital Discharge Instructions Allergies, Adverse Reactions, Alerts This section is outside dealer sales representative of the current allergy information, at the time of the CCD generation. In the case of regeneration of the CCD, the allergy information may not reflect the state of known allergies at the time of the CCD' s subject visit. * Penicillins causes Moderate Swelling/Edema, hives. * Codeine causes Mild stomach ache. * No Latex Allergy. * No IV Contrast Allergy. * No Known Food Allergies. Medication Medication reconciliation has not been performed.
--- OUTSIDE RECORDS SUMMARY | 2017-04-03 10:09 | XMS REPORT | Summary of Care ---
Author Author Dinorah Flowers Organization Unknown Address [address] [place], [place] [address] Phone Unavailable Care Team Providers Care Mechanical Product Engineer Name Role Phone Marianne Nuñez, WILLY, [...] Active Fall, accidental (E888.9, W19.XXXA) Status: Active Medications Name Dates Details Multiple [...] UNTIL FINISHED. * Quantity: 10 Refills: 0 Dinorah Merritt P.A.* Started Ended ActiveMupirocin 2 % External Ointment APPLY SPARINGLY TO AFFECTED AREA(S) TWICE DAILY * Quantity: 15 Refills: 0 Keesling, Dinorah P.A.* Started Active Allergies and Adverse Reactions Name [...] Details Fluzone High-Dose Intramuscular Suspension Lot #: [id number] Administered on:09-Apr-2014 Social History Name Dates Details [...]
--- OUTSIDE RECORDS SUMMARY | 2017-04-03 10:09 | XMS REPORT | Summary of Care ---
Author Author Reagan Nuñez, Dereje Dixon Unknown Address [address] [place], [place] [phone] Phone Unavailable Care Team Providers Care Websphere Architect Name Role Phone Bk Garrido M.D. Unavailable [...] Mesh Completed: CBC w/ Auto Diff 7150 Ordered:26-Mar-2015 Comprehensive Metabolic Panel 1212 Ordered:26-Mar-2015 CT AB/ PEL WITHOUT AND WITH ORAL AND IV CONTRAST Ordered:26-Mar-2015 Immunization Name Dates Details Fluzone High-Dose Intramuscular Suspension Lot #: [id number] Administered on:09-Apr-2014 Social History Name Dates Details [...] 0-2 MUCUS 1+ /LPF (Better) Range: Negative-2+ Plan of Care Planned Observations* Name Dates [...] Banks On 16-May-2010 16:30 * Appointment; Provider: Coonr Craig On 31-Jan-2010 07:00 * Appointment; Provider: [...]
--- OUTSIDE RECORDS SUMMARY | 2017-04-03 10:10 | XMS REPORT | Summary of Care ---
Author Author Elier Nuñez, Dior Oliva Organization Unknown Address [address] [place], [place] [phone] Phone Unavailable Care Team Providers Care Civil Rights Representative Name Role Phone Bk Garrido M.D. Unavailable [...] 11 Pj Thapa M.D. Start 08-Feb-2016 Active Acetaminophen 500 MG Oral Tablet * Refills: 0 Ty Garrido M.D. Start 15-Feb-2016 Active ZyrTEC Allergy 10 MG Oral Capsule Take one tablet daily * Refills: 0 Miranda Nuñez, Sabino Kathleen * Start 27-Mar-2016 Active LevoFLOXacin 750 MG Oral Tablet TAKE 1 TABLET DAILY. * Quantity: 10 Refills: 0 Elier Nuñez, Pj Rader * Start 29-May-2016 Active Allergies and Adverse [...] Dates Details Fluzone High-Dose SUSP Lot #: [id number] on: 09-Apr-2014 Prevnar 13 Intramuscular Suspension Lot #: [id number] on: 11-May-2016 Fluzone High-Dose 0.5 ML Intramuscular Suspension Prefilled Syringe Lot #: [id number] on: 11-May-2016 Family History Name Dates Details [...] of Care Name Dates Details Planned Observations CBC w/ Auto Diff 7150 On 31-Jul-2016 Intent Comprehensive Metabolic Panel 1212 On 31-Jul-2016 Intent LIPID PROFILE 1184 On 31-Jul-2016 Intent THYROID STIM. HORMONE 3602 On 31-Jul-2016 Intent Planned Goals not documented Planned Encounters Appointment; Provider: Ty Lopes M.D.,[facility], On 04-Oct-2016 10:45 Appointment; Provider: Everton Cummins M.D. On 25-Sep-2016 10:15 Appointment; Provider: David Sultana M.D. On 15-Aug-2016 15:15 Appointment; Provider: Pj Thapa M.D. On 11-Aug-2016 09:45 Instructions Name Dates Details Instructions not documented [...] documented On 04-Nov-2015 14:30 Appointment; Ty Lopes M.D., FACS, Encounter Diagnosis: Problem not documented On 04-Oct-2015 [...] documented On 05-Oct-2014 10:00 Appointment; Ty Lopes M.D.,[facility], Encounter Diagnosis: Problem not documented On 28-Sep-2014 [...]
--- OUTSIDE RECORDS SUMMARY | 2017-04-03 10:10 | XMS REPORT | Summary of Care ---
Author Author Gurvinder BECERRIL, Shanta Organization Unknown Address [address] [place], [place] [id number] Phone Unavailable Care Team Providers Care Manager Etl Name Role Phone Hema Nuñez, Bk Crawford [...] Benign prostatic hypertrophy (600.00, N40.0) Status: Active Medications Name Dates Details Multiple [...] Refills: 0 Onur Whyte D.O.* Started 29-Sep-2015 Active Allergies and Adverse Reactions Name Dates [...] Details Fluzone High-Dose Intramuscular Suspension Lot #: [id number] Administered on:09-Apr-2014 Family History aunt* Name Dates [...] 10:45 * Appointment; Provider: Everton Cummins On 27-Mar-2016 11:00 * Appointment; Provider: Ty Garrido On 21-Feb-2016 10:30 * Appointment; Provider: Pj Thapa On 04-Nov-2015 14:30 * Appointment; Provider: Everton Cummins On 21-Oct-2015 13:45 * Appointment; Provider: Everton Cummins On 12-Sep-2015 [...] * Instructions not documented Encounters Appointment; Ty Lopes Encounter Diagnosis: Problem not [...]
--- OUTSIDE RECORDS SUMMARY | 2017-04-03 10:11 | XMS REPORT | Summary of Care ---
Author Author Jay Nuñez, Dior Crawford Organization Unknown Address [address], [place] [phone] Phone Unavailable Care Team Providers Care Business Information Manager Name Role Phone Marianne Nuñez, FACS, ,, [...] Details Fluzone High-Dose Intramuscular Suspension Lot #: [id number] Administered on:09-Apr-2014 Social History Name Dates Details [...]
--- OUTSIDE RECORDS SUMMARY | 2017-04-03 10:11 | XMS REPORT ---
Author Author GENERATED, SYSTEM Organization Unknown Address Unknown Phone Unavailable Care Team Providers Care Investigator Fraud Name Role Phone MD NINO, ZULMA PP [...] of Care Procedures * Completed Procedure Code: 7CR849R Procedure Name: not valued, on 09/12/2015 12 :00 AM * Completed Procedure Code: 83HY4BP Procedure Name: not valued, on 09/12/2015 12 :00 AM * Completed Procedure Code: 45U80RJ Procedure Name: not valued, on 09/12/2015 12 :00 AM * Completed Procedure Code: V69S4KQ Procedure Name: not valued, on 09/12/2015 12 :00 AM * Completed Procedure Code: Q6795CL Procedure Name: not valued, on 09/12/2015 12 :00 AM * Completed ventral hernia with mesh, by MD JUNO VARGAS, on 04/28/2014 9:21 AM * Completed excision of umbilicus, by MD JUNO VARGAS, on 04/28/2014 12:00 AM * Completed Procedure Code: 80626 Procedure Name: not valued, on 04/28/2014 12: 00 AM * Completed Procedure Code: 25629 Procedure Name: not valued, on 04/28/2014 12: 00 AM * Completed Procedure Code: 11976 Procedure Name: not valued, on 04/28/2014 12: 00 AM * Completed olecranon bursectomy, Right, by MD MARQUISE WASHBURN, on 04/20/2014 3: 00 PM * Completed Procedure Code: 47088 Procedure Name: not valued, on 04/20/2014 12: 00 AM * Completed Laparoscopic Cholecystectomy, by MD JUNO VARGAS, on 01/20/2014 12 :13 PM * Completed Procedure Code: 26623 Procedure Name: not valued, on 01/20/2014 12: 00 AM * Completed Procedure Code: 19640 Procedure Name: not valued, on 01/20/2014 12: [...] Allergies, Adverse Reactions, Alerts This section is sales training representative of the current allergy information, at [...]
--- OUTSIDE RECORDS SUMMARY | 2017-04-03 10:11 | XMS REPORT ---
Author Author GENERATED, SYSTEM Organization Unknown Address Unknown Phone Unavailable Care Team Providers Care Diamond Sizer And Sorter Name Role Phone MD NINO, ZULMA PP Unavailable Reason For Visit Chief Complaint NO VISION IN LFT EYE Social History Functional Status Vital Signs Results [...] of Care Procedures * Completed Procedure Code: 5MN258L Procedure Name: not valued, on 09/12/2015 12 :00 AM * Completed Procedure Code: 25TO1AL Procedure Name: not valued, on 09/12/2015 12 :00 AM * Completed Procedure Code: 14C38JW Procedure Name: not valued, on 09/12/2015 12 :00 AM * Completed Procedure Code: [id number] Procedure Name: not valued, on 09/12/2015 12 :00 AM * Completed Procedure Code: [id number] Procedure Name: not valued, on 09/12/2015 12 :00 AM * Completed ventral hernia with mesh, by MD JUNO VARGAS, on 04/28/2014 9:21 AM * Completed excision of umbilicus, by MD JUNO VARGAS, on 04/28/2014 12:00 AM * Completed Procedure Code: 28151 Procedure Name: not valued, on 04/28/2014 12: 00 AM * Completed Procedure Code: 82021 Procedure Name: not valued, on 04/28/2014 12: 00 AM * Completed Procedure Code: 73604 Procedure Name: not valued, on 04/28/2014 12: 00 AM * Completed olecranon bursectomy, Right, by MD MARQUISE WASHBURN, on 04/20/2014 3: 00 PM * Completed Procedure Code: 05362 Procedure Name: not valued, on 04/20/2014 12: 00 AM * Completed Laparoscopic Cholecystectomy, by MD JUNO VRAGAS, on 01/20/2014 12 :13 PM * Completed Procedure Code: 56663 Procedure Name: not valued, on 01/20/2014 12: 00 AM * Completed Procedure Code: 28284 Procedure Name: not valued, on 01/20/2014 12: [...] Allergies, Adverse Reactions, Alerts This section is payable representative of the current allergy information, at [...]
--- OUTSIDE RECORDS SUMMARY | 2017-04-03 10:12 | XMS REPORT | Summary of Care ---
Author Author Maria G Nuñez, Everton Kruse Organization Unknown Address Unknown Phone Unavailable Care Team Providers Care Arts Manager Name Role Phone Bk Garrido M.D. Unavailable Unavailable Elier Nuñez, Dior Oliva Unavailable Unavailable Everton Cummins M.D. Unavailable Unavailable Tre Bull M.D. Unavailable [...] Status: Active 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, Z95.0) Status: Active Medications Name Dates Details Multiple [...] Dates Details Fluzone High-Dose SUSP Lot #: [id number] on: 09-Apr-2014 Prevnar 13 Intramuscular Suspension Lot #: [id number] on: 11-May-2016 Fluzone High-Dose 0.5 ML Intramuscular Suspension Prefilled Syringe Lot #: [id number] on: 11-May-2016 Family History Name Dates Details [...] Vital Signs Date Test Result Details 12-Oct-2016 11:16 BP Systolic 124 mm[Hg] Status: Comments: Location: ; Position: BP Diastolic 76 mm[Hg] Status: Comments: Location: ; Position: Heart Rate 76 /min Status: Comments: Location: ; Height 66 in Status: Weight 185 lb Status: Body Mass Index Calculated 29.86 kg/m2 Status: Body Surface Area Calculated 1.93 m2 Status: 12-Oct-2016 08:55 BP Systolic 142 mm[Hg] Status: Comments: Location: LUE; Position: Sitting BP Diastolic 68 mm[Hg] Status: Comments: Location: LUE; Position: Sitting Heart Rate 71 /min Status: Comments: Location: [...] were attached to this order: Extra Tube, ESTEBAN, FRUIT I FARMWORKER Charge WBC 5.0 K/uL Range: 4.5-11.0 RBC [...] were attached to this order: Extra Tube, ESTEBAN, FRUIT I FARMWORKER Charge SODIUM 136 mmol/L Range: 133-144 POTASSIUM 4.1 mmol/L Range: 3.5-5.1 CHLORIDE 102 mmol/L Range: 98-110 CARBON DIOXIDE 30.5 mmol/L Range: 23.0-33.0 ANION GAP 4 mmol/L (Below low threshold) Range: 6-16 BUN 15 mg/dL Range: 7-18 CREATININE, SERUM 1.15 mg/dL Range: 0.70-1.30 BUN:CREATININE RATIO 13 EST GFR, >60 ml/min Range: >60 EST GFR, NON-AFR ALGERIAN >60 ml/min Range: >60 Comments: EST GFR [...] were attached to this order: Extra Tube, ESTEBAN, FRUIT I FARMWORKER Charge LIPASE 129 U/L Range: 73-393 10:27 AMYLASE 1250 Comments: Items were attached to this order: Extra Tube, ESTEBAN, FRUIT I FARMWORKER Charge AMYLASE 52 U/L Range: 25-115 Plan of Care Name Dates Details Planned Observations Planned Goals not documented Planned Encounters Appointment; Provider: Everton Cummins M.D. On 16-Apr-2017 10:30 Appointment; Provider: David Sultana M.D. On 13-Feb-2017 15:15 Appointment; Provider: Pj Thapa M.D. On 09-Nov-2016 14:15 Appointment; Provider: Ty Thompson M.D. On 07-Nov-2016 08:30 Appointment; Provider: Tre Bull M.D. On 26-Oct-2016 09:15 Instructions Name Dates Details Instructions not documented Encounters Appointment; Ventura Talavera M.D. Encounter Diagnosis: Problem not documented On 12-Oct-2016 08:39 Appointment; Ty Thompson M.D. Encounter Diagnosis: Problem not documented On 10-Oct-2016 08:00 Appointment; Tre Bull M.D. Encounter Diagnosis: Problem not documented On 09-Oct-2016 11:00 Appointment; Ty Thompson M.D. Encounter Diagnosis: Problem not documented On 13-Sep-2016 10:00 Appointment; Ty Thompson M.D. Encounter Diagnosis: Problem not documented On 17-Aug-2016 08:00 Appointment; David Sultaan M.D. Encounter Diagnosis: Problem not documented On [...] documented On 04-Nov-2015 14:30 Appointment; Ty Lopes M.D.,[facility], Encounter Diagnosis: Problem not documented On [...]
--- OUTSIDE RECORDS SUMMARY | 2017-04-03 10:13 | XMS REPORT | Summary of Care ---
Author Author Reagan Nuñez, Dereje Peguero Organization Unknown Address [address] [place], [place] [id number] Phone Unavailable Care Team Providers Care Water Technician Name Role Phone Marianne Nuñez, FACS, ,, [...] Details Fluzone High-Dose Intramuscular Suspension Lot #: [id number] Administered on:09-Apr-2014 Social History Name Dates Details [...] mm[Hg] Status: BP Diastolic 78 mm[Hg] Status: Temperature 99.2 f Status: Heart Rate 84 /min Status: Respiration Rate 16 /min Status: Weight 187 lb Status: Body [...] Diagnosis: Problem not documented On 15:45 Appointment; Davdi Sultana Encounter Diagnosis: Problem not documented On [...]
--- OUTSIDE RECORDS SUMMARY | 2017-04-03 10:13 | XMS REPORT | Summary of Care ---
Author Author Jay Nuñez, Dior Dixon Unknown Address Unknown Phone Unavailable Care Team Providers Care Grinding Machine Operator Name Role Phone Bk Garrido M.D. [...] SPECIFIC ANTIGEN) 3100 Ordered: 10-Oct-2016 ANAEROBIC CULTURE [id number] Ordered: 07-Nov-2016 NASAL CAVITY CULTURE [id number] Ordered: 07-Nov-2016 Urinalysis, Reflex to Microscopic or Culture PRN [id number] Ordered: 12-Oct-2016 EPIDURAL INJECTION Ordered: 06-Nov-2016 Immunization Name Dates Details Fluzone High-Dose SUSP Lot #: [id number] on: 09-Apr-2014 Prevnar 13 Intramuscular Suspension Lot #: [id number] on: 11-May-2016 Fluzone High-Dose 0.5 ML Intramuscular Suspension Prefilled Syringe Lot #: [id number] on: 11-May-2016 Family History Name Dates Details [...] attached to this order: Extra Tube, IRASEMA, INSOLE AND HEEL STIFFENER Charge WBC 5.0 K/uL Range: 4.5-11.0 RBC [...] attached to this order: Extra Tube, IRASEMA, INSOLE AND HEEL STIFFENER Charge SODIUM 136 mmol/L Range: 133-144 POTASSIUM 4.1 mmol/L Range: 3.5-5.1 CHLORIDE 102 mmol/L Range: 98-110 CARBON DIOXIDE 30.5 mmol/L Range: 23.0-33.0 ANION GAP 4 mmol/L (Below low threshold) Range: 6-16 BUN 15 mg/dL Range: 7-18 CREATININE, SERUM 1.15 mg/dL Range: 0.70-1.30 BUN:CREATININE RATIO 13 EST GFR, >60 ml/min Range: >60 EST GFR, NON-AFR BENINESE >60 ml/min Range: >60 Comments: EST GFR [...] attached to this order: Extra Tube, IRASEMA, INSOLE AND HEEL STIFFENER Charge LIPASE 129 U/L Range: 73-393 10:27 AMYLASE 1250 Comments: Items were attached to this order: Extra Tube, IRASEMA, INSOLE AND HEEL STIFFENER Charge AMYLASE 52 U/L Range: 25-115 13-Oct-2016 [...] 24 Hour - Start Labs/Procedures/Imaging* ANAEROBIC CULTURE [id number]; To be Done: 07 Nov 2016 * NASAL CAVITY CULTURE [id number]; To be Done: 07 Nov 2016 Instructions [...] documented On 04-Nov-2015 14:30 Appointment; Ty Lopes M.D.,[facility], Encounter Diagnosis: Problem not documented [...]
[2017-04-03 10:14] LABS: BASOPHILS % (AUTO) 1 % (0-10); EOSINOPHILS # (AUTO) 0.2 10^3/uL (0.0-0.3); EOSINOPHILS % (AUTO) 4 % (0-10); LYMPHOCYTES # (AUTO) 1.5 X 10^3 (1.0-4.0); LYMPHOCYTES % (AUTO) 30 % (12-44); MEAN CORPUSCULAR HEMOGLOBIN 34 PG (25-34); MEAN CORPUSCULAR HGB CONC 35 G/DL (32-36); MEAN CORPUSCULAR VOLUME 97 FL (80-99); MEAN PLATELET VOLUME 8.6 FL (7.4-10.4); MONOCYTES # (AUTO) 0.5 X 10^3 (0.0-1.0); MONOCYTES % (AUTO) 9 % (0-12); NEUTROPHILS # (AUTO) 2.8 X 10^3 (1.8-7.8); NEUTROPHILS % (AUTO) 57 % (42-75); PLATELET COUNT 204 10^3/uL (130-400); RED CELL DISTRIBUTION WIDTH 13.1 % (10.0-14.5)
--- OUTSIDE RECORDS SUMMARY | 2017-04-03 10:14 | XMS REPORT | Summary of Care ---
Author Author Elier Nuñez, Dior Oliva Organization Unknown Address [address] [place], [place] [phone] Phone Unavailable Care Team Providers Care Supervising Airplane Pilot Name Role Phone Bk Garrido M.D. Unavailable [...] pain, acute, left (719.45, M25.552) Status: Active [place]'s esophagus (530.85, K22.70) Status: Active Benign prostatic [...] Dates Details Fluzone High-Dose SUSP Lot #: [id number] on: 09-Apr-2014 Prevnar 13 Intramuscular Suspension Lot #: [id number] on: 11-May-2016 Fluzone High-Dose 0.5 ML Intramuscular Suspension Prefilled Syringe Lot #: [id number] on: 11-May-2016 Family History Name Dates Details [...] On 09-Nov-2016 14:15 Appointment; Provider: Ty Lopes M.D.,[facility], On 04-Oct-2016 10:45 Appointment; Provider: Everton Cummins M.D. On 25-Sep-2016 10:15 Appointment; Provider: Ty Thompson M.D. On 17-Aug-2016 08:00 Appointment; Provider: David Sultana M.D. On 15-Aug-2016 15:15 Appointment; Provider: Schedule Radiology On 14-Aug-2016 13:30 Interventions Provided Labs/Procedures/Imaging* CT SINUSES; Done: Aug 14 2016 1:58PM * Urinalysis, Reflex to Microscopic or Culture PRN [id number]; Done: Aug 14 2016 1: 29PM Instructions Name Dates Details Instructions not documented [...] documented On 04-Nov-2015 14:30 Appointment; Ty Lopes M.D.,[facility], Encounter Diagnosis: Problem not documented On [...] documented On 05-Oct-2014 10:00 Appointment; Ty Lopes M.D.,[facility], Encounter Diagnosis: Problem not documented On [...]
--- OUTSIDE RECORDS SUMMARY | 2017-04-03 10:14 | XMS REPORT | Summary of Care ---
Author Author Jay Nuñez, Dior Dixon Unknown Address Unknown Phone Unavailable Care Team Providers Care Parliamentary Librarian Name Role Phone Bk Garrido M.D. Unavailable [...] Dates Details Fluzone High-Dose SUSP Lot #: [id number] on: 09-Apr-2014 Prevnar 13 Intramuscular Suspension Lot #: [id number] on: 11-May-2016 Fluzone High-Dose 0.5 ML Intramuscular Suspension Prefilled Syringe Lot #: [id number] on: 11-May-2016 Family History Name Dates Details [...] Provider: Everton Cummins M.D. On 12-Oct-2016 11:00 Instructions Name Dates Details Instructions not [...] documented On 04-Nov-2015 14:30 Appointment; Ty Lopes M.D.,[facility], Encounter Diagnosis: Problem not documented [...]
--- OUTSIDE RECORDS SUMMARY | 2017-04-03 10:15 | XMS REPORT | Summary of Care ---
Author Author Maria G Nuñez, Everton Kruse Organization Unknown Address Unknown Phone Unavailable Care Team Providers Care Section Leader Screen Printing Name Role Phone Bk Garrido M.D. Unavailable Unavailable Marianne Nuñez, FACS, ,, M Ty Unavailable Unavailable Elier Nuñez, Dior Oliva Unavailable Unavailable Maria G Nuñez, Everton Kruse Unavailable Unavailable Jay Nñuez, Dior Crawford Unavailable Unavailable Miranda Nuñez, Hever [...] Active Leg cramps (729.82, R25.2) Status: Active Atrial arrhythmia (427.9, I49.8) Status: Active Benign essential hypertension (401.1, I10) Status: Active Symptomatic bradycardia (427.89, R00.1) Status: [...] Dates Details Fluzone High-Dose SUSP Lot #: [id number] on: 09-Apr-2014 Family History Name Dates Details [...] smoker Vital Signs Date Test Result Details 27-Mar-2016 11:12 BP Systolic 136 mm[Hg] Status: Comments: Location: ; Position: BP Diastolic 82 mm[Hg] Status: Comments: Location: ; Position: Heart Rate 84 /min Status: Comments: Location: ; Weight 184 lb Status: Body Mass Index Calculated 29.7 kg/m2 Status: Body Surface Area Calculated 1.93 m2 Status: 16-Mar-2016 14:24 BP Systolic 130 mm[Hg] Status: [...] >60 ml/min Range: >60 EST GFR, NON-AFR GABONESE 51 ml/min (Below low threshold) Range: >60 [...] MAGNESIUM 1260 MAGNESIUM 2.2 mg/dL Range: 1.8-2.4 17-Mar-2016 14:42 ULTRASOUND LEG VEINS LEFT Comments: Exam Date: 03/17/2016 13:49Dictation Date: 03/17/2016 14:42 XS LEG VEINS LEFT Plan of Care Name Dates Details Planned Observations Planned Goals not documented Planned Encounters Appointment; Provider: Ty Lopes M.D.|Chika|Joaquin,WILLY|WILLY Nuñez, On 04-Oct-2016 10:45 Appointment; Provider: Everton Cummins M.D. On 25-Sep-2016 10:15 Appointment; Provider: David Sultana M.D. On 11-Jul-2016 08:30 Appointment; Provider: Pj Thapa M.D. On 11-May-2016 09:45 Appointment; Provider: Everton Cummins M.D. On 25-Apr-2016 14:00 Interventions Provided Medication Changes* PredniSONE 10 MG Oral Tablet - Stop * Sulfamethoxazole-Trimethoprim 800-160 MG Oral Tablet - Stop Instructions Name Dates Details Instructions not documented [...] documented On 05-Oct-2014 10:00 Appointment; Ty Lopes M.D.|[facility]Joaquin,WILLY|Joaquin,WILLY, Encounter Diagnosis: Problem not documented On 28-Sep-2014 [...] documented On 22-Jul-2014 13:30 Appointment; Christoph Scruggs M.D.|[facility].|MArabella,WILLY|MArabella,FACS, Encounter Diagnosis: Problem not documented On 15-Jul-2014 14:00 Appointment; Christoph Scruggs M.D.|[facility].|MArabella,DARIEL,WILLY, Encounter Diagnosis: Problem not documented On 17-Jun-2014 14:15 Appointment; Christoph Scruggs M.D.|[facility].|MLalaDLala,FACS|M.D.,FACS, Encounter Diagnosis: Problem not documented On 25-May-2014 13:45 Appointment; Sherlyn Huerta M.D. Encounter Diagnosis: Problem not documented On 15-May-2014 09:30 Appointment; Ty Lopes M.D.|[facility].|M.DLala,WILLY|MLalaD.,FACS, Encounter Diagnosis: Problem not documented On 13-May-2014 14:45 Appointment; Christoph Scruggs M.D.|[facility].|M.DLala,FACS|MLalaDLala,FACS, Encounter Diagnosis: Problem not documented On 13-May-2014 14:00 Appointment; Christoph Scruggs M.D.|[facility].|MLalaDLala,WILLY|MArabella,FACS, Encounter Diagnosis: Problem not documented On 07-May-2014 11:30 Appointment; Conor Craig M.D. Encounter Diagnosis: Problem not documented On 05-May-2014 09:45 Appointment; Ty Lopes M.D.|[facility].|M.DLala,FACS|MLalaD.,FACS, Encounter Diagnosis: Problem not documented On 04-May-2014 08:30 Appointment; Christoph Scruggs M.D.|[facility].|MLalaDLala,WILLY|MArabella,FACS, Encounter Diagnosis: Problem not documented On 27-Apr-2014 10:30 Appointment; Sudhir Kirk M.D. Encounter Diagnosis: Problem not documented On 16-Apr-2014 10:30 Appointment; Conor Craig M.D. Encounter Diagnosis: Problem not documented On 16-Apr-2014 08:45 Appointment; Conor Craig M.D. Encounter Diagnosis: Problem not documented On 09-Apr-2014 14:00 Appointment; Melodie Jessica Encounter Diagnosis: Problem not documented On 09-Apr-2014 11:45 Appointment; Christoph Scruggs M.D.|[facility].|M.DLala,FACS|MLalaDLala,FACS, Encounter Diagnosis: Problem not documented On 09-Apr-2014 11:15"
--- OUTSIDE RECORDS SUMMARY | 2017-04-03 10:15 | XMS REPORT | Summary of Care ---
Author Author Elier Nuñez, Dior Oliva Organization Unknown Address [address] [facility] [place] [place] [phone] Phone Unavailable Care Team Providers Care Silverware Supervisor Name Role Phone Bk Garrido M.D. 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 For -[place], please multiple result by 1.2.----- GLUCOSE 100 [...] <2 years of age----- Plan of Care Planned Observations* Name Dates [...]
--- OUTSIDE RECORDS SUMMARY | 2017-04-03 10:16 | XMS REPORT | Summary of Care ---
Author Author Marianne Nuñez, WILLY, ,, M Ty Organization Unknown Address [address] [place], [place] [phone] Phone Unavailable Care Team Providers Care Bar Useful Or Busser Name Role Phone Bk Garrido M.D. Unavailable [...] not documented Status: Problems Name Dates Details Cholelithiasis (574.20, K80.20) Status: Active Left breast [...] Active Dressing change (V58.30, Z48.00) Status: Active Acute upper respiratory infection (465.9, J06.9) Status: Active Fracture of facial bones (802.8, S02.92XA) Status: Active Fall, accidental (E888.9, W19.XXXA) Status: [...] carcinoma 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, C44.310) Status: Active Bronchitis (490, J40) Status: Active Ventral hernia (553.20, K43.9) Status: Active Olecranon bursitis (726.33, M70.20) Status: Active Biliary calculus (574.20, K80.20) Status: Active Nephrolithiasis (592.0, N20.0) Status: Active Insomnia (780.52, G47.00) Status: Active Skin infection (686.9, L08.9) Status: Active Rib pain on left side (786.50, R07.81) Status: Active Medications Name Dates Details Multiple Vitamins Oral Tablet ActiveCalcium 600 + D 600-200 MG-UNIT Oral Tablet * Refills: 0 ActiveFish Oil 1000 MG Oral Capsule * Refills: 0 ActiveFiber CAPS * Refills: 0 ActiveTylenol Extra Strength 500 MG Oral Tablet * Refills: 0 * Started 25-Mar-2010 ActiveDiphenhydrAMINE HCl - 25 MG Oral Capsule 1 capsule at bedtime to help with sleep and allergies. May take an additional capsule if needed. * Quantity: 30 Refills: 0 Anthony Banks M.D.* Started 23-May-2010 ActiveAspirin Low Dose 81 MG Oral Tablet * Refills: 0 ActivePantoprazole Sodium 40 MG [...] Quantity: 15 Refills: 0 Dinorah Merritt* Started ActiveVitamin E 400 UNIT Oral Tablet [...] Colonoscopy For Forceps Biopsy Completed:16-Apr-2012 History of Laparoscopic Cholecystectomy With Cholangiography Completed:December-2013 History of Appendectomy As Part Of Other Major Procedure History of Ventral Hernia Repair History of Ventral Hernia Repair With Implantation Of Mesh Completed: History of Duodenoscopy With Biopsy Completed:07-Apr-2013 Procedures not documented Immunization Name Dates Details Fluzone High-Dose Intramuscular Suspension Lot #: [id number] Administered on:09-Apr-2014 Social History Name Dates Details [...] Problem not documented On 09-Apr-2014 11:15 Appointment; Chrisotph Scruggs Encounter Diagnosis: Problem not documented On [...]
--- OUTSIDE RECORDS SUMMARY | 2017-04-03 10:16 | XMS REPORT ---
Author Author GENERATED, SYSTEM Organization Unknown Address Unknown Phone Unavailable Care Team Providers Care Manager Strategy & Account Name Role Phone MD LIZETTE, MARY PP Reason For Visit Reason for Visit from 09/11/2015 5:51 PM:* Pt Stated Reason for Adm : HR Chief Complaint AFLUTTER WITH AV BLOCK 7-1 Social History Social History from 09/13/2015 11:11 AM:* Tobacco Use? : Never Smoker Social History from 09/11/2015 5:51 PM:* Tobacco Use? : Never Smoker Functional Status Functional Status from 09/13/2015 7:54 AM:* LOC : Alert * Oriented To : Person,Place,Time,Event * Weight Bearing Status : Full * Assist Level : Partial * # Assists : 1 Functional Status from 09/12/2015 10:09 PM:* LOC : Alert * Oriented To : Person,Place,Time,Event * Weight Bearing Status : Full * Assist Level : Partial * # Assists : 1 Functional Status from 09/12/2015 7:51 AM:* LOC : Alert * Oriented To : Person,Place,Time,Event * Weight Bearing Status : Full * Assist Level : Partial * # Assists : 1 Functional Status from 09/11/2015 11:31 PM:* LOC : Alert * Oriented To : Person,Place,Time,Event * Weight Bearing Status : Full * Assist Level : Partial * # Assists : 1 Functional Status from 09/11/2015 5:51 PM:* LOC : Alert * Oriented To : Person,Place,Time,Event * Weight Bearing Status : Full * Assist Level : Partial * # Assists : 1 Vital Signs Hospital Vital Signs from 09/13/2015 9:00 AM:* Height : 5/6.5 ft,in Hospital Vital Signs from 09/13/2015 7:54 AM:* Heart Rate : 60 Hospital Vital Signs from 09/13/2015 7:35 AM:* Height : 5/6.5 ft,in * Temperature : 97.6 F * Pulse : 55 * Respirations : 20 * BP : 152/92 Hospital Vital Signs from 09/13/2015 6:01 AM:* Weight : 87/ kg * Height : 5/6.5 ft,in Hospital Vital Signs from 09/13/2015 3:10 AM:* Height : 5/6.5 ft,in * Temperature : 97.6 F * Pulse : 61 * Respirations : 20 * BP : 119/63 Hospital Vital Signs from 09/12/2015 10:12 PM:* Height : 5/6.5 ft,in * Temperature : 97.9 F * Pulse : 60 * Respirations : 20 * BP : 135/79 Hospital Vital Signs from 09/12/2015 10:09 PM:* Heart Rate : 60 Hospital Vital Signs from 09/12/2015 7:30 PM:* Height : 5/6.5 ft,in * Temperature : 97.0 F * Pulse : 72 * Respirations : 20 * BP : 139/74 Hospital Vital Signs from 09/12/2015 5:45 PM:* Height : 5/6.5 ft,in * Pulse : 60 * Respirations : 20 * BP : 148/70 Hospital Vital Signs from 09/12/2015 4:45 PM:* Height : 5/6.5 ft,in * Pulse : 62 * Respirations : 20 * BP : 133/69 Hospital Vital Signs from 09/12/2015 3:45 PM:* Height : 5/6.5 ft,in * Pulse : 61 * Respirations : 20 * BP : 136/64 Hospital Vital Signs from 09/12/2015 3:15 PM:* Height : 5/6.5 ft,in * Pulse : 60 * Respirations : 20 * BP : 166/62 Hospital Vital Signs from 09/12/2015 2:45 PM:* Height : 5/6.5 ft,in * Pulse : 60 * Respirations : 20 * BP : 152/79 Hospital Vital Signs from 09/12/2015 2:30 PM:* Height : 5/6.5 ft,in * Pulse : 60 * Respirations : 20 * BP : 153/71 Hospital Vital Signs from 09/12/2015 2:15 PM:* Height : 5/6.5 ft,in * Pulse : 60 * Respirations : 20 * BP : 152/117 Hospital Vital Signs from 09/12/2015 2:00 PM:* Height : 5/6.5 ft,in * Pulse : 61 * Respirations : 20 * BP : 158/117 Hospital Vital Signs from 09/12/2015 1:45 PM:* Height : 5/6.5 ft,in * Temperature : 96.5 F * Pulse : 62 * Respirations : 20 * BP : 189/104 Hospital Vital Signs from 09/12/2015 7:51 AM:* Heart Rate : 33 Hospital Vital Signs from 09/12/2015 7:00 AM:* Height : 5/6.5 ft,in * Temperature : 96.4 F * Pulse : 35 * Respirations : 20 * BP : 170/74 Hospital Vital Signs from 09/12/2015 6:40 AM:* Weight : 84/ kg * Height : 5/6.5 ft,in Hospital Vital Signs from 09/12/2015 3:05 AM:* Height : 5/6.5 ft,in * Temperature : 98.1 F * Pulse : 34 * Respirations : 18 * BP : 114/55 Hospital Vital Signs from 09/11/2015 11:31 PM:* Heart Rate : 35 Hospital Vital Signs from 09/11/2015 10:08 PM:* Height : 5/6.5 ft,in * Temperature : 97.2 F * Pulse : 55 * Respirations : 18 * BP : 139/70 Hospital Vital Signs from 09/11/2015 8:46 PM:* Heart Rate : 36 Hospital Vital Signs from 09/11/2015 7:50 PM:* Height : 5/6.5 ft,in * Pulse : 37 * Respirations : 18 * BP : 161/69 Hospital Vital Signs from 09/11/2015 5:51 PM:* Weight : 85.7/ kg * Height : 5/6.5 ft,in Results Chemistry from 09/12/2015 4:41 AMSODIUM 139 MMOL/L (136-145 MMOL/L) POTASSIUM 4.0 MMOL/L (3.5-5.1 MMOL/L) CHLORIDE 104 MMOL/L (98-107 MMOL/L) TCO2 27.1 MMOL/L (21.0-32.0 MMOL/L) *ANION GAP 7.9 MMOL/L L (8.0-16.0 MMOL/L) BUN 15 MG/DL (7-18 MG/DL) CREATININE 1.17 MG/DL (0.70-1.30 MG/DL) *BUN/CREATININE RATIO 12.8 (9.1-17.0 ) GLUCOSE 92 MG/DL (65-99 MG/DL) *GFR EST NON AFR MOZAMBICAN 58 ML/MIN *GFRA EST AFR AMER 67 [...] 09/11/2015 7:59 PMTROPONIN-I <0.017 NG/ML (0.000-0.056 NG/ML) Hematology from 09/11/2015 7:59 PMWBC 4.6 X10e3/UL (3.6-11.2 X10e3/UL) RBC 4.59 X10e6/UL (4.06-5.63 X10e6/UL) HEMOGLOBIN 15.3 G/DL (12.5-16.3 G/DL) HEMATOCRIT 45.3 % (36.7-47.1 %) *MCV 98.7 FL (80.0-100.0 FL) *MCH 33.4 PG H (27.0-33.0 PG) *MCHC 33.8 G/DL (32.0-36.0 G/DL) *RDW 13.6 % (12.3-17.0 %) *RDWSD 46.4 (37.1-47.8 ) PLATELET 203 X10e3/UL (159-386 X10e3/UL) *MPV 6.9 FL L (7.4-10.4 FL) Urinalysis from 09/11/2015 6:57 PM* Status: Final Result URINALYSIS Specimen Number: [id number] Sample Collection Date/Time: 09/11/2015 6:57 PM Specimen [...] (NEGATIVE ) *URINE LEUKOCYTES NEGATIVE (NEGATIVE ) Coagulation from 09/11/2015 7:59 PMPARTIAL THROMBOPLASTIN TIME 26.4 SECONDS (23.0 -31.0 SECONDS) Microbiology from 09/11/2015 6:57 PM* MRSA NASAL Specimen Number: [id number] Sample Collection Date/Time: 09/11/2015 6:57 PM Specimen Source: Nares MRSA NASAL: Negative- No MRSA detected Echocardiology from 09/12/2015 12:00 AMEchocardiogram See also [...] by: Aguila Aleman MD Dictated: 09/13/2015 08:16 CT Scan from 09/11/2015 7:40 PMCT CHEST [...] by: Jackie Chavira MD Dictated: 09/12/2015 08:16 Problems Encounter Diagnosis * Atrial Flutter Status:Active. * Benign Prostatic Hyperplasia Status:Active. * Fall Risk Status:Active. * Obstructive Sleep Apnea Syndrome Status:Active. * Skin Integrity Impairment Risk Status:Active. Additional Problems * Laparoscopic Cholecystectomy Comment:Problem resolved by [facility] upon Discharge, Status:Resolved. * Repair of Ventral Hernia Comment:Problem resolved by [facility] upon Discharge, Status:Resolved. * Small Bowel Obstruction Comment:Problem resolved by [facility] upon Discharge, Status:Resolved. Encounters Encounter Diagnosis * Atrial Flutter Status:Active. * Benign Prostatic Hyperplasia Status:Active. * Fall Risk Status:Active. * Obstructive Sleep Apnea Syndrome Status:Active. * Skin Integrity Impairment Risk Status:Active. Plan of Care Follow-up Appointments from 09/13/2015 11:11 AM:* #1 Office appointment: : Dr Cummins * #1 Date/Time : 09/20/2015 12:00 PM * Address # 1 : [facility]: [facility] [address] [place]- or * #2 Office appointment: : Dr Kirk * #2 Date/Time : 09/15/2015 10:30 AM * Address # 2 : [facility]: [address] [place]- or Treatment Plan from 09/13/2015 11:30 AM:* Care Management Note : Shante met with patient to review discharge planning. Su Reeves had seen patient during the weekend and provided list of home health agencies. Patient decided on [facility]. Patient voiced no additional questions or concerns and feels he will be safe at home with a little bit of help. SW'er contacted [facility] for referral, but they stated they were not currently taking any new patients. SW' er spoke with patient and then made a referral to [facility]. Patient is a low risk for readmission at this time. Treatment Plan from 09/12/2015 5:58 PM:* Care Management Note : SW met with pt and granddtr. Pt lives at home alone. He has to wear a sling imobilizer Pacer placement for two weeks which will make getting dressed, bathing, bathroom challenging. SW provided pt with information about home health with OT that could teach him skills but would not be rodent exterminator daily helpers. Pt states they are considering [place] granddtr [place] from [place] to stay with him. SW also mentioned private care agencies such as [facility] and [facility] that could assist on a daily basis. Pt and granddtr to discuss and make decision tomorrow. SW on acute to follow up to assist with possible referral to a agency. Treatment Plan from 09/12/2015 9:54 AM:* Care Management Note : Patient admitted under inpatient status to the telemetry unit after presenting to the ED w/ c/o shortness of breath, vertigo et near syncope. Found to be in A-flutter w/ a heart rate of 35. Patient does not have a history of arrhythmias. POC includes cardiology consult ([facility]), IV fluids @ 75 cc/hr et Lovenox. Will have a permanent pacemaker placed today. Patient meets medical necessity for an inpatient admission w/ an anticipated LOS > 2 midnights. Procedures * Completed ventral hernia with mesh, by MD JUNO VARGAS, on 04/28/2014 9:21 AM * Completed excision of umbilicus, by MD JUNO VARGAS, on 04/28/2014 12:00 AM * Completed Procedure Code: 00904 Procedure Name: not valued, on 04/28/2014 12: 00 AM * Completed Procedure Code: 42638 Procedure Name: not valued, on 04/28/2014 12: 00 AM * Completed Procedure Code: 01161 Procedure Name: not valued, on 04/28/2014 12: 00 AM * Completed olecranon bursectomy, Right, by MD MARQUISE WASHBURN, on 04/20/2014 3: 00 PM * Completed Procedure Code: 21523 Procedure Name: not valued, on 04/20/2014 12: 00 AM * Completed Laparoscopic Cholecystectomy, by MD JUNO VARGAS, on 01/20/2014 12 :13 PM * Completed Procedure Code: 02904 Procedure Name: not valued, on 01/20/2014 12: 00 AM * Completed Procedure Code: 66608 Procedure Name: not valued, on 01/20/2014 12: [...] or ordered. Hospital Course Hospital Discharge Instructions How to care for yourself at home from 09/13/2015 11:11 AM:* Discharge Activity : Activity as tolerated,Do not engage in sports, heavy work or heavy lifting until your physician gives permission * Discharge Diet : Modification as given by physician * Discharge Diet: : Low Sodium. Low Cholesterol * Call your doctor if: : Fever over 101 F or severe chills,Chest pain or other unexplained symptoms,Tingling or numbness develops,A sudden increase or decrease in weight,You have persistent or worsening symptoms,If you have Heart Failure and you gain 3 pounds within 1 week or your symptoms worsen. (Weigh at home tomorrow morning) * Specific Discharge Teaching Instructions provided: : Yes * Specific Discharge Teaching Instructions Reviewed: : Pacemaker and Bivent Guidelines * Discharge on Warfarin : No Allergies, Adverse Reactions, Alerts * Penicillins causes Moderate Swelling/Edema, hives. * Codeine causes Mild stomach ache. * No Latex Allergy. * No IV Contrast Allergy. * No Known Food Allergies. Medication It is the responsibility of the patient or patient parts sales representative to confirm the list of medications with either the patient's personal care provider or the patient's follow-up care provider to ensure the patient has an appropriate list of medications to take at home. Discharge medications New medications* lisinopril (Prinivil) 5 mg Tablet, Ordered By: JULIA REYES APRN Directions: 1 tablet oral daily * rivaroxaban (Xarelto) 20 mg Tablet, Ordered By: JULIA REYES APRN Directions: 1 tablet oral daily Additional Instructions: Please start on 09/15/15 Continued medications* pantoprazole 40 mg tablet,delayed release (DR/EC), Ordered By: NATHANIEL CUMMINS MD Directions: 1 tablet oral daily * tamsuLOSIN (FLOmax) 0.4 mg capsule,extended release 24hr, Ordered By: NATHANIEL CUMMINS MD Directions: 1 capsule oral daily at bedtime Stopped medications* None
--- OUTSIDE RECORDS SUMMARY | 2017-04-03 10:17 | XMS REPORT | Summary of Care ---
Author Author Elier Nuñez, Dior Dixon Unknown Address [address], [place] [id number] Phone Unavailable Care Team Providers Care High School Social Science Teacher Name Role Phone Bk Garrido M.D. Unavailable [...] Active Leg cramps (729.82, R25.2) Status: Active Acute upper respiratory infection (465.9, J06.9) Status: Active Medications Name Dates Details Multiple Vitamins Oral Tablet Active Fish Oil 1000 MG Oral Capsule * Refills: 0 Active Fiber CAPS * Refills: 0 Active Xarelto 20 MG Oral Tablet Take [...] Sabino Jean M.D. * Start 27-Mar-2016 Active LevoFLOXacin 750 MG Oral Tablet TAKE 1 TABLET DAILY. * Quantity: 10 Refills: 0 Pj Thapa M.D. * Start 29-May-2016 Active Symbicort 160-4.5 MCG/ACT Inhalation Aerosol INHALE 2 PUFFS BY MOUTH TWICE DAILY * Quantity: 10.2 Refills: 3 Pj Thapa M.D. * Start 18-May-2016 Active ClonazePAM 0.5 MG Oral Tablet TAKE 1-3 TABLETS BY MOUTH 1 HOUR BEFORE BEDTIME FOR RESTLESSNESS NEEDED * Quantity: 60 Refills: 5 Ty Garrido M.D. Start 15-Feb-2015 Active Tamsulosin HCl - 0.4 MG Oral Capsule TAKE 1 CAPSULE BY MOUTH AT BEDTIME * Quantity: 90 Refills: 3 Marianne Nuñez, WILLY, , , Ty Chapin * Start Active Pantoprazole Sodium 40 MG Oral Tablet Delayed Release TAKE 1 TABLET BY MOUTH 30 MINUTES BEFORE BREAKFAST EVERY DAY * Quantity: 30 Refills: 11 Jay Nuñez, Ty Rader * Start 28-Apr-2010 Active Allergies and Adverse [...] History of Gastroscopy With Biopsy Completed: 25-Mar-2012 CBC w/ Auto Diff 7150 Ordered: 15-May-2016 Comprehensive Metabolic Panel 1212 Ordered: 15-May-2016 LIPID PROFILE 1184 Ordered: 15-May-2016 THYROID STIM. HORMONE 3602 Ordered: 15-May-2016 Immunization Name Dates Details Fluzone High-Dose SUSP Lot #: [id number] on: 09-Apr-2014 Prevnar 13 Intramuscular Suspension Lot #: [id number] on: 11-May-2016 Fluzone High-Dose 0.5 ML Intramuscular Suspension Prefilled Syringe Lot #: [id number] on: 11-May-2016 Family History Name Dates Details [...] smoker Vital Signs Date Test Result Details 29-May-2016 10:15 BP Systolic 140 mm[Hg] Status: Comments: Location: ; Position: BP Diastolic 70 mm[Hg] Status: Comments: Location: ; Position: Heart Rate 85 /min Status: Comments: Location: ; Weight 184.2 lb Status: Physical Findings 92 Status: Comments: O2 Saturation Body Mass Index Calculated 29.73 kg/m2 Status: Body Surface Area Calculated 1.93 m2 Status: 11-May-2016 09:53 BP Systolic 120 mm[Hg] Status: [...] Putnam|WILLY Nuñez, On 04-Oct-2016 10:45 Appointment; Provider: Everton Cummins M.D. On 25-Sep-2016 10:15 Appointment; Provider: Pj Thapa M.D. On 11-Aug-2016 09:45 Appointment; Provider: David Sultana M.D. On 11-Jul-2016 08:30 Interventions Provided Medication Changes* LevoFLOXacin 750 MG Oral Tablet - Start Instructions Name [...] documented On 05-Oct-2014 10:00 Appointment; Ty Lopes M.D.|[facility].|Joaquin,DARIEL,WILLY, Encounter Diagnosis: Problem not documented On 28-Sep-2014 [...] documented On 22-Jul-2014 13:30 Appointment; Christoph Scruggs M.D.|[facility].|Joaquin,DARIEL,WILLY, Encounter Diagnosis: Problem not documented On 15-Jul-2014 14:00 Appointment; Christoph Scruggs M.D.|[facility].|Joaquin,WILLY|Joaquin,WILLY, Encounter Diagnosis: Problem not documented On 17-Jun-2014 14:15"
--- OUTSIDE RECORDS SUMMARY | 2017-04-03 10:17 | XMS REPORT | Summary of Care ---
Author Author Ilan Nuñez, Bk Whitehead Organization Unknown Address Unknown Phone Unavailable Care Team Providers Care Aerophysicist Name Role Phone Bk Garrido M.D. Unavailable [...] Dates Details Fluzone High-Dose SUSP Lot #: [id number] on: 09-Apr-2014 Prevnar 13 Intramuscular Suspension Lot #: [id number] on: 11-May-2016 Fluzone High-Dose 0.5 ML Intramuscular Suspension Prefilled Syringe Lot #: [id number] on: 11-May-2016 Family History Name Dates Details [...] attached to this order: Extra Tube, IRASEMA, UPHOLSTERY BUNDLER Charge WBC 5.0 K/uL Range: 4.5-11.0 RBC [...] attached to this order: Extra Tube, IRASEMA, UPHOLSTERY BUNDLER Charge SODIUM 136 mmol/L Range: 133-144 POTASSIUM 4.1 mmol/L Range: 3.5-5.1 CHLORIDE 102 mmol/L Range: 98-110 CARBON DIOXIDE 30.5 mmol/L Range: 23.0-33.0 ANION GAP 4 mmol/L (Below low threshold) Range: 6-16 BUN 15 mg/dL Range: 7-18 CREATININE, SERUM 1.15 mg/dL Range: 0.70-1.30 BUN:CREATININE RATIO 13 EST GFR, >60 ml/min Range: >60 EST GFR, NON-AFR ANGUILLAN >60 ml/min Range: >60 Comments: EST GFR [...] attached to this order: Extra Tube, IRASEMA, UPHOLSTERY BUNDLER Charge LIPASE 129 U/L Range: 73-393 10:27 AMYLASE 1250 Comments: Items were attached to this order: Extra Tube, IRASEMA, UPHOLSTERY BUNDLER Charge AMYLASE 52 U/L Range: 25-115 13-Oct-2016 [...] Radiology On 13-Oct-2016 15:15 Interventions Provided Labs/Procedures/Imaging* Urinalysis, Reflex to Microscopic or Culture PRN [id number]; To be Done: 12 Oct 2016 * CBC w/ Auto Diff 7150; Done: Oct [...] not documented On 13-Sep-2016 10:00 Appointment; Ty Thmopson M.D. Encounter Diagnosis: Problem not documented On [...] Diagnosis: Problem not documented On 06:30 Appointment; Dvaid Sultana M.D. Encounter Diagnosis: Problem not documented [...]
--- OUTSIDE RECORDS SUMMARY | 2017-04-03 10:18 | XMS REPORT | Summary of Care ---
Author Author Reagan Nuñez, Dereje Peguero Organization Unknown Address [address] [place], [place] [id number] Phone Unavailable Care Team Providers Care Security Operations Engineer Name Role Phone Bk Garrido M.D. Unavailable Unavailable Marianne Nuñez, FACS, ,, M Ty Unavailable Unavailable Darren Nuñez, Son Unavailable Unavailable Shaina Bliss, Dinorah Unavailable Unavailable Jay Nuñez, Dior Crawford Unavailable Unavailable Reagan Nuñez, Dereje Peguero Unavailable Unavailable Sudhir Kirk PP Unavailable Unavailable [...] Active Laryngopharyngeal reflux (478.79, J38.7) Status: Active Bronchitis (490, J40) Status: Active [...] Active Hernia, abdominal (553.9, K46.9) Status: Active 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, Z95.0) Status: Active Ventral hernia (553.20, K43.9) Status: Active Medications Name Dates Details Multiple [...] Details Fluzone High-Dose Intramuscular Suspension Lot #: [id number] Administered on:09-Apr-2014 Social History Name Dates Details Smoking Status* Never smoker Vital Signs Date Test Result Details 15-Sep-2015 10:33 BP Systolic 164 mm[Hg] Status: [...] 10:15 * Appointment; Provider: Everton Cummins On 20-Sep-2015 12:00 * Appointment; Provider: Everton Cummins On 12-Sep-2015 [...] not documented On 15-Feb-2015 11:45 Appointment; Dinorah Merrtit Encounter Diagnosis: Problem not documented On 08:15 [...] Problem not documented On 31-Aug-2014 13:00 Appointment; Davdi Sultana Encounter Diagnosis: Problem not [...]
--- OUTSIDE RECORDS SUMMARY | 2017-04-03 10:18 | XMS REPORT | Summary of Care ---
Author Author Gurvinder BECERRIL, Shanta Organization Unknown Address [address] [place], [place] [id number] Phone Unavailable Care Team Providers Care Digital Design Engineer Name Role Phone Marianne Nuñez, WILLY, ,, M Ty Unavailable Unavailable Darren Nuñez, Son Unavailable Unavailable Jay Nuñez, Dior Crawford Unavailable Unavailable Kayy Nuñez, S David Unavailable Unavailable Sudhir Kirk PP Unavailable Unavailable [...] Post op infection (998.59, T81.4XXA) Status: Active Dressing change (V58.30, Z48.00) Status: Active Basal cell carcinoma of ear [...] Ty Lopes M.D., FACS, , * Started ActiveCephalexin 500 MG Oral Capsule TAKE ONE CAPSULE TWO TIMES A DAY FOR 7 DAYS. * Quantity: 14 Refills: 0 David Sultana M.D.* Started 23-Sep-2014 Ended 30-Sep-2014 Active Allergies and Adverse Reactions Name Dates [...] Completed: PSA ( PROSTATE SPECIFIC ANTIGEN) 3100 Ordered:17-Sep-2014 Immunization Name Dates Details Fluzone High-Dose Intramuscular Suspension Lot #: [id number] Administered on:09-Apr-2014 Social History Name Dates Details [...] 11:45 * Appointment; Provider: David Sultana On 05-Oct-2014 10:00 * Appointment; Provider: David Sultana On 23-Sep-2014 [...] Encounter Diagnosis: Problem not documented On 10:15 Appointment; Sherlyn Huerta Encounter Diagnosis: Problem not documented On 17-Oct-2012 10:30 Appointment; Yasmine Duran Encounter Diagnosis: Problem not documented On 11-Oct-2012 10:15
--- NOTE | 2017-04-03 10:20 | ED Upper Extremity ---
General Chief Complaint: Laceration Stated Complaint: CUT HAND ON TABLE SAW Source: patient Exam Limitations: no limitations History of Present Illness Time seen by provider: 09:43 Initial Comments Here with injury to the left hand and fingers. Patient was using a table saw and had just finished cutting a piece of plywood. He had turned off the saw but tried to get a piece of wood and caught his hand in the saw blade. This did cause injury to the left index, middle and ring fingers. The middle finger is loose distally and obviously has complete bony involvement. Patient is right -hand dominant. Does retain some sensation to the distal fingers on all fingers of the left hand. Onset: just prior to arrival (45 minutes ago) Severity: mild Pain/Injury Location: left wrist, left 2nd finger, left 3rd finger, left 4th finger Method of Injury: incised Modifying Factors: Improves With Immobilization, Worse With Movement Allergies and Home Medications Allergies Coded Allergies: Penicillins (Verified Allergy, Unknown, 04/03/17) codeine (Verified Allergy, Unknown, 04/03/17) Home Medications Baclofen 10 Mg Tablet, (Reported) Budesonide/Formoterol Fumarate 10.2 Gm Hfa.aer.ad, (Reported) Losartan Potassium 25 Mg Tablet, (Reported) Omeprazole 40 Mg Capsule.dr, (Reported) Pantoprazole Sodium 40 Mg Tablet., (Reported) Rivaroxaban 20 Mg Tablet, (Reported) Rivaroxaban 20 Mg Tablet, (Reported) Constitutional: see HPI, No chills, No fever EENTM: no symptoms reported Respiratory: no symptoms reported Cardiovascular: no symptoms reported Gastrointestinal: no symptoms reported Genitourinary: no symptoms reported Musculoskeletal: see HPI, joint pain, muscle pain Skin: see HPI, lesions Psychiatric/Neurological: See HPI, Tingling All Other Systems Reviewed Negative Unless Noted: Yes Past Abcospq-Nlgsfa-Pdpfrj Hx Patient Social History Alcohol Use: Denies Use Recreational Drug Use: No Smoking Status: Former Smoker Recent Foreign Travel: No Contact w/Someone Who Travel: No Surgeries History of Surgeries: Yes Surgeries: Abdominal, Appendectomy, Gallbladder, Orthopedic, Prostatectomy Respiratory History of Respiratory Disorde: Yes Respiratory Disorders: Sleep Apnea, COPD Cardiovascular History of Cardiac Disorders: Yes (pacemaker) Cardiac Disorders: High Cholesterol Neurological History of Neurological Disord: No Genitourinary History of Genitourinary Disor: No Gastrointestinal History of Gastrointestinal Di: No Musculoskeletal History of Musculoskeletal Dis: Yes Musculoskeletal Disorders: Arthritis, Scoliosis Endocrine History of Endocrine Disorders: No HEENT History of HEENT Disorders: Yes HEENT Disorders: Cataract Cancer History of Cancer: Yes Cancer: Skin Psychosocial History of Psychiatric Problem: No Reviewed Nursing Assessment Reviewed/Agree w Nursing PMH: Yes Family Medical History Significant Family History: No Pertinent Family Hx Physical Exam Vital Signs Vital Sign - Last 12Hours 04/03/17 09:52 Temp 98.0 Pulse 72 Resp 18 B/P (MAP) 176/96 Pulse Ox 94 O2 Delivery Room Air Capillary Refill : General Appearance: WD/WN, no apparent distress HEENT: PERRL/EOMI, pharynx normal Neck: full range of motion, supple Cardiovascular: regular rate, rhythm, no murmur Respiratory: lungs clear, normal breath sounds Gastrointestinal: non tender, soft Back: normal inspection, no CVA tenderness, no vertebral tenderness Shoulder: normal inspection Elbow/Forearm: normal inspection Wrist: Yes normal inspection Hand: Left, bone tenderness, deformity, laceration, limited ROM, soft tissue tenderness Neurologic/Psychiatric: alert, oriented x 3 Skin: warm/dry Comments Left hand with laceration injury to the distal tip of the index finger and proximal pad over the proximal phalanx on the palmar surface of the index finger. The proximal laceration is 2 x 3 cm of multiple areas of laceration and injury. The fourth finger has a 2 cm laceration at the base on the palmar surface from side. The middle finger has near complete transection of the middle portion of the finger on the palmar and thumb side. Distal finger is freely mobile. Retains range of motion on the index and fourth fingers both flexion and extension as well as sensation and circulation. The middle finger has flexion and extension at the proximal portion at the MCP joint but no distal range of motion. Does retains sensation on the lateral aspect (pinky side) and somewhat decreased sensation on the index finger side of the middle finger. Cap refill intact to the distal middle finger. Laceration Repair : Wound Location: Upper Extremities Other Wound Location Left third finger dorsal surface and medial aspect Wound's Depth, Shape: into muscle, bone ( solid reduction), tendon Wound Explored: foreign body removed Irrigated w/ Saline (ccs): 500 Betadine Prep?: Yes Anesthesia: 1% Lidocaine (2 percent lidocaine) Volume Anesthetic (ccs): 10 Wound Debrided: minimal Suture: Prolene Suture Size: 4-0 Number of Sutures: 5 Layer Closure?: 1 Number Deep Layer Sutures: 0 Sterile Dressing Applied?: Yes Progress Finger has near-complete amputation. Bone noted within wound. Proximal phalanx distal and open in wound. Wound copiously flushed and finger loosely approximated for stability with 5 4-0 Prolene sutures. Distal blood flow remains intact as noted with distal capillary refill. Covered with dressing and splinted. Progress Proximal ring finger on the left has 2 cm laceration at the base that was loosely closed with 5-0 Prolene 5 sutures after copious flushing with normal saline 250 mL. Lpstmo-nl-siblj stitch applied to capture digital artery that was persisting and bleeding. Adequate hemostasis noted. Covered with dressing and splinted. Progress/Results/Core Measures Results/Orders Lab Results Laboratory Tests Test 04/03/17 09:45 Range/Units White Blood Count 5.0 4.3-11.0 10^3/uL Red Blood Count 4.50 4.35-5.85 10^6/uL Hemoglobin 15.1 13.3-17.7 G/DL Hematocrit 44 40-54 % Mean Corpuscular Volume 97 80-99 FL Mean Corpuscular Hemoglobin 34 25-34 PG Mean Corpuscular Hemoglobin Concent 35 32-36 G/DL Red Cell Distribution Width 13.1 10.0-14.5 % Platelet Count 204 130-400 10^3/uL Mean Platelet Volume 8.6 7.4-10.4 FL Neutrophils (%) (Auto) 57 42-75 % Lymphocytes (%) (Auto) 30 12-44 % Monocytes (%) (Auto) 9 0-12 % Eosinophils (%) (Auto) 4 0-10 % Basophils (%) (Auto) 1 0-10 % Neutrophils # (Auto) 2.8 1.8-7.8 X 10^3 Lymphocytes # (Auto) 1.5 1.0-4.0 X 10^3 Monocytes # (Auto) 0.5 0.0-1.0 X 10^3 Eosinophils # (Auto) 0.2 0.0-0.3 10^3/uL Basophils # (Auto) 0.0 0.0-0.1 10^3/uL Prothrombin Time 28.6 H 12.2-14.7 SEC INR Comment 2.7 H 0.8-1.4 Activated Partial Thromboplast Time 41 H 24-35 SEC Sodium Level 136 135-145 MMOL/L Potassium Level 3.7 3.6-5.0 MMOL/L Chloride Level 105 98-107 MMOL/L Carbon Dioxide Level 25 21-32 MMOL/L Anion Gap 6 5-14 MMOL/L Blood Urea Nitrogen 13 7-18 MG/DL Creatinine 1.11 0.60-1.30 MG/DL Estimat Glomerular Filtration Rate > 60 BUN/Creatinine Ratio 12 Glucose Level 131 H 70-105 MG/DL Calcium Level 9.0 8.5-10.1 MG/DL Total Bilirubin 1.6 H 0.1-1.0 MG/DL Aspartate Amino Transf (AST/SGOT) 28 5-34 U/L Alanine Aminotransferase (ALT/SGPT) 23 0-55 U/L Alkaline Phosphatase 61 40-136 U/L Total Protein 7.1 6.4-8.2 GM/DL Albumin 4.0 3.2-4.5 GM/DL My Orders Orders - LIA POST MD Cbc With Automated Diff (04/03/17 10:00) Comprehensive Metabolic Panel (04/03/17 10:00) Protime With Inr (04/03/17 10:00) Partial Thromboplastin Time (04/03/17 10:00) Saline Lock/Iv-Start (04/03/17 10:00) Lidocaine 2% Injection 20 Ml (Xylocaine (04/03/17 10:00) Hand, Left, 3 Views (04/03/17 10:00) Cefazolin 2 Gm/50 Ml Ns (Ancef 2 Gm/50 M (04/03/17 11:30) Medications Given in ED Current Medications Medications Dose Ordered Sig/Marivel Route Start Time Stop Time Status Last Admin Dose Admin Cefazolin Sodium 50 ml @ 140 mls/hr ONCE ONCE IV 04/03/17 11:30 04/03/17 11:51 DC 04/03/17 11:40 140 MLS/HR Fentanyl Citrate 50 mcg ONCE ONCE IVP 04/03/17 11:15 04/03/17 11:16 DC 04/03/17 11:13 50 MCG Ondansetron HCl 4 mg ONCE ONCE IVP 04/03/17 11:15 04/03/17 11:16 DC 04/03/17 11:12 4 MG Vital Signs/I&O Vital Sign - Last 12Hours 04/03/17 09:52 Temp 98.0 Pulse 72 Resp 18 B/P (MAP) 176/96 Pulse Ox 94 O2 Delivery Room Air Progress Note : Progress Note Seen and evaluated on arrival. IV ordered. Labs and x-ray of the left hand ordered. Digital block of the left hand index, third and fourth fingers done by me with 2 percent lidocaine which did give good pain relief. I did initiate conversation with Dr. Meek and spoke with his nurse practitioner. He is currently not continuous process machine operator that would be happy to see the patient in clinic if we sewed the finger back together. This does not appear to be a viable option. I did discuss case with Dr. Bradley, on-call orthopedist. He will assist with evaluation. At this point, there does appear to be viable although the injury may be severe enough that the finger may not be salvageable. We will continue evaluation. 1100: Otto Diaz APRN with Dr. Chung office here assisting with evaluation. No hand surgeon available. 1130. Wounds cleaned, loosely closed third finger for approximation, ring finger wound loosely closed and small arterial bleed stopped via oversewn suture x 3. Wounds copiously flushed with saline. Dressings applied to wound with splinting of left hand applied by Otto Diaz. Patient did have a long conversation with his daughter and they would like to pursue evaluation for possibility of saving the finger. Finger still has blood flow with cap refill noted to the distal finger tip. Offered amputation and washout here but they would like to pursue a hand surgeon evaluation. There are no hand surgeons available here or in [place] at [facility] or [place]. Closest available hand surgeon would be Dana. Initiated contact with [facility] in [place], [place]. 2 g of Ancef IV ordered. Zofran 4 mg IV for nausea. Fentanyl 50 g IV for pain. Monitor patient. 1148: I did speak with the triage nurse who spoke with Dr. Combs. He is the hand surgeon on-call. He has accepted the patient in transfer ER to ER. Patient's pain is improved although still has some nausea. Patient will go by EMS due to pain medicine requirements.. All findings and concerns discussed with the patient and friends who agree with transfer. Patient is aware that this may still result and amputation. Diagnostic Imaging Diagonstic Imaging: Xray Plain Films/CT/US/NM/MRI: hand Comments VIA [facility]. [place], [place] NAME: HUYEN VELARDE [facility] REC#: [id number] PT STATUS: REG ER : 1935 PHYSICIAN: LIA POST MD ADMIT DATE: 04/03/17/ER Draft Date of Exam:04/03/17 HAND, LEFT, 3 VIEWS INDICATION: Table saw injury. AP, oblique and lateral views of the left hand are obtained. FINDINGS: Fine bony detail is limited due to overlying bandaging, however, there is markedly comminuted fracture through the proximal aspect of the third middle phalanx with disruption of the proximal articular surface at the proximal interphalangeal joint. There also appears to be minimal avulsion fracture of the second terminal tuft. No other definite fracture is appreciated. IMPRESSION: Comminuted intra-articular fracture involving the proximal aspect of the third middle phalanx with probable minimal avulsion of the second terminal tuft. 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 Combs accepting. Method of Transfer: EMS Departure-Patient Inst. Referrals: NO,LOCAL PHYSICIAN (PCP/Family) Primary Care Physician LIA POST MD Apr 03, 2017 10:20
[2017-04-03 10:24] LABS: INR 2.7 (0.8-1.4); PROTHROMBIN TIME PATIENT 28.6 SEC (12.2-14.7)
[2017-04-03 10:31] LABS: ALANINE AMINOTRANSFERASE 23 U/L (0-55); ANION GAP 6 MMOL/L (5-14); ASPARTATE AMINO TRANSFERASE 28 U/L (5-34); BILIRUBIN,TOTAL 1.6 MG/DL (0.1-1.0); BLOOD UREA NITROGEN 13 MG/DL (7-18); BUN/CREATININE RATIO 12; CARBON DIOXIDE 25 MMOL/L (21-32); CHLORIDE 105 MMOL/L (98-107); CREATININE SERUM 1.11 MG/DL (0.60-1.30); GFR ESTIMATED > 60; GLUCOSE 131 MG/DL (70-105); POTASSIUM 3.7 MMOL/L (3.6-5.0); SODIUM 136 MMOL/L (135-145); TOTAL PROTEIN 7.1 GM/DL (6.4-8.2)
--- NOTE | 2017-04-03 10:32 | Diagnostic Imaging Report ---
INDICATION: Table saw injury. AP, oblique and lateral views of the left hand are obtained. FINDINGS: Fine bony detail is limited due to overlying bandaging, however, there is markedly comminuted fracture through the proximal aspect of the third middle phalanx with disruption of the proximal articular surface at the proximal interphalangeal joint. There also appears to be minimal avulsion fracture of the second terminal tuft. No other definite fracture is appreciated. IMPRESSION: Comminuted intra-articular fracture involving the proximal aspect of the third middle phalanx with probable minimal avulsion of the second terminal tuft. Dictated by: Dictated on workstation # [id number]
[2017-04-03] MEDS ORDERED: ONDANSETRON 4 MG/2 ML (SDV) Z0FRAN IVP ONE (11:15)
[2017-04-03] MEDS ORDERED: fentaNYL INJECTION 100 MCG/2 ML AMP IVP ONE (11:15)
[2017-04-03] MEDS ORDERED: ceFAZolin 2 GM/50 ML NS 50 ML IV ONE (11:30)
[2017-04-03 12:21] VITALS: BP 144/88
--- NOTE | 2017-04-05 08:02 | CONSULTATION REPORT ---
DATE OF SERVICE: EMERGENCY ROOM CONSULTATION CHIEF COMPLAINT: Left hand saw injury. 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 He is right-hand dominant and appeared in the Emergency Room with a bloody left upper extremity with injury involving most notably the long finger of the left hand. He otherwise reported no significant past history of left upper extremity injury or dysfunction. He underwent radiographic evaluation of the left hand 3 views today, from [facility] which showed a comminuted fracture of the base of the middle phalanx of his long finger. This demonstrated complete disruption of the articular surface of said middle phalanx. Radiographically there was no radiographic evidence of damage to the proximal phalanx otherwise and no other acute changes noted throughout the left hand radiographically. The patient otherwise complained of pain throughout the left upper extremity. Left hand examination revealed a partially amputated long finger at the PIP joint with a small skin and neurovascular bridge involving perhaps 1/4 to 1/3rd of the circumference of the skin coverage. This was not transecting fully the extensor tendon aspect of the finger and appeared to involve some of the flexor sheath, but again, the ulnar and the neurovascular bundle appeared intact and the capillary refill throughout the long finger was found to be brisk. He demonstrated a large area of skin loss along the volar aspect of the index finger over the MCP joint with subcutaneous fat exposed, but no other anatomic structural injury was noted. He demonstrated intact flexor and extensor tendon function throughout the left hand index finger. There was also a punctate wound approximately 1 cm wide noted along the dorsum of the hand between the index and long fingers. Since the digits had been anesthetized with digital blocks ahead of time by Dr. Manish Timmons, the areas were copiously irrigated with sterile normal saline and options were discussed with the patient and his friends that were with him in the Emergency Room. The option of completion amputation of the long finger given the damage to both the digit and the articular surface of the PIP joint were discussed. The patient consulted by telephone with other family members as well and the decision was made to proceed with transport to a regional hand center. The wounds were temporarily closed with 4-0 Prolene suture in order to maintain anatomic attitude primarily of the long finger and to aid in hemostasis as well. The patient tolerated the procedure otherwise. IMPRESSION: Left hand multiple lacerations with partial amputation long finger proximal interphalangeal joint and comminuted fracture. PLAN: As described previously, the decision was made to transfer the patient to [facility]. The hand was placed in a sterile dressing with Xeroform gauze covering the open wound regions and the hand and wrist were immobilized with a volar 4 inch Ortho-Glass splint. The patient tolerated immobilization very well and verbalized comfort. He was otherwise prepared for transport. Thank you for the consult. Job ID: [id number] DocumentID: [id number] Dictated Date: 04/03/2017 15:51:29 [employer] Date: 04/04/2017 06:52:16 Dictated By: MANOHAR MURRAY
== END 2017-04-03 12:27 | disposition short-term general hospital (02) ==
LOC: ER 09:45
DX: Z79.01 Long term (current) use of anticoagulants; Z90.49 Acquired absence of other specified parts of digestive tract; G47.30 Sleep apnea, unspecified; M41.20 Other idiopathic scoliosis, site unspecified; J44.9 Chronic obstructive pulmonary disease, unspecified; Z85.828 Personal history of other malignant neoplasm of skin; S68.123A Partial traumatic metacarpophalangeal amputation of left middle finger, initial encounter; S61.412A Laceration without foreign body of left hand, initial encounter; Z95.0 Presence of cardiac pacemaker; M19.90 Unspecified osteoarthritis, unspecified site; W29.8XXA Contact with other powered hand tools and household machinery, initial encounter; E78.00 Pure hypercholesterolemia, unspecified; Z87.891 Personal history of nicotine dependence
CPT/HCPCS: 12002; 29125; 36415; 73130; 80053; 85025; 85610; 85730; 96365; 96375